=== PATIENT | female | born 1980 | race Caucasian/White ===

== ENCOUNTER 2020-12-23 13:10 | Emergency (ER) | payer MEDICAID, SELFPAY ==
[2020-12-23 13:21] VITALS: BP 172/90; PULSE 114; RESP 16; TEMP 36.5; O2SAT 100
--- NOTE | 2020-12-23 13:28 | ED.URI ---
HPI - URI/Sore Throat General Chief Complaint: Upper Respiratory Infection Stated Complaint: congestion and ear pain Source: patient and RN notes reviewed Mode of arrival: ambulatory History of Present Illness HPI Narrative: This is a 40-year-old female that presented to urgent care with complaints of sinus tenderness, chest and nasal congestion, with green mucus, cough and shortness of breath, shortness of breath, and right ear audio disturbance for the last 8 days, patient notes that she has Mucinex at home for her symptoms. The patient denies SOB, CP, palpitation, extremity numbness, lightheadedness, dizziness, constipation, diarrhea, chills, or fever. Patient has had a history of sinusitis MD elicited complaint: cough, rhinorrhea, nasal congestion and sinus pain Related Data Home Medications Medication Instructions Recorded Confirmed cyclobenzaprine 10 mg PO TID PRN 12/23/20 12/23/20 morphine 15 mg PO TID 12/23/20 12/23/20 potassium chloride 20 meq PO DAILY 12/23/20 12/23/20 Allergies Allergy/AdvReac Type Severity Reaction Status Date / Time methocarbamol [From Robaxin] Allergy Severe Anaphylactic Verified 12/23/20 13:47 Shock adhesive Allergy Unknown RASH Verified 12/23/20 13:47 latex Allergy Unknown RASH ON Verified 12/23/20 13:47 HANDS Review of Systems Review of Systems: A 14 organ system Review of Systems was performed and pertinent positives included in the HPI, otherwise remaining ROS is negative. [facility] Family History Family History Mother Family history of malignant neoplasm of cervix Family history of malignant neoplasm of breast in first degree relative Grandparent Family history of malignant neoplasm of breast Other Diabetes mellitus Family history of coronary artery disease Hypertension Social History Social History Alcohol intake: never Exam Narrative: GENERAL: This is a well-nourished, well-developed patient, in no apparent distress. HEAD: normocephalic, atraumatic. Frontal and maxillary tenderness. EYES: PERRL. Sclera clear/white. Vision is grossly intact. EARS: External ears normal, auditory canals clear with erythema without drainage, TMs normal without perforation. Hearing grossly intact. NOSE: External nose normal with no obvious nasal discharge, nares without redness, no rhinorrhea. THROAT: Mucous membranes moist, posterior pharynx clear. NECK: Neck supple, non-tender without lymphadenopathy, masses or thyromegaly. CARDIOVASCULAR: Regular rate and rhythm without murmurs, gallops, or rubs. RESPIRATORY: Clear to auscultation. Breath sounds equal bilaterally. No wheezes, rales, or rhonchi. GASTROINTESTINAL: Abdomen soft, non-tender, nondistended. Bowel sounds are active. No hepato-splenomegaly, or palpable masses. No guarding. SKIN: warm, intact with no suspicious lesions or rash, good texture and turgor. NEURO: awake, alert, and oriented to person, place and time. There were no obvious focal neurologic abnormalities. Steady gait EXTREMITIES: Normal range of motion. No edema. No calf tenderness. Negative Homans sign bilaterally. BACK: Nontender without deformity or crepitance. No flank tenderness. Course Course Emergency Course: Patient will be treated for otitis externa with Cipro drops and Augmentin for sinusitis. Vital Signs Vital signs: Vital Signs Temperature 97.7 F 12/23/20 13:21 Pulse Rate 114 H 12/23/20 13:21 Respiratory Rate 16 12/23/20 13:21 Blood Pressure 172/90 H 12/23/20 13:21 Pulse Oximetry 100 12/23/20 13:21 Temperature 97.7 F 12/23/20 13:21 Pulse Rate 114 H 12/23/20 13:21 Respiratory Rate 16 12/23/20 13:21 Blood Pressure 172/90 H 12/23/20 13:21 Pulse Oximetry 100 12/23/20 13:21 MDM - URI/Sore Throat Differential Diagnosis Differential diagnosis: Likely upper respiratory infection, otitis media and sinus
== END 2020-12-23 14:21 | disposition home or self-care (01) ==
PROVIDERS: Emergency Provider Nurse Practitioner
DX: J01.11 Acute recurrent frontal sinusitis (principal); H60.501 Unspecified acute noninfective otitis externa, right ear; Z20.822 Contact with and (suspected) exposure to COVID-19
CPT/HCPCS: 87426; 99203; C9803; G0463

== ENCOUNTER 2022-01-19 14:55 | Emergency (ER) | payer MEDICAID, SELFPAY ==
[2022-01-19 15:01] VITALS: BP 118/77; PULSE 93; RESP 14; TEMP 36.5; O2SAT 100
--- NOTE | 2022-01-19 15:24 | ED.URI ---
HPI - URI/Sore Throat General Chief Complaint: Upper Respiratory Infection Stated Complaint: chest tightness nausea Time Seen by Provider: 01/19/22 15:24 Source: patient and RN notes reviewed Mode of arrival: ambulatory Limitations: no limitations History of Present Illness HPI Narrative: 41-year-old female presents with concern for 10 day history of chest heaviness, cough, earache, muscle ears. Reports she has been taking [id number] medication without relief. Reports members of her household have similar symptoms MD elicited complaint: cough and other (Ear pain) Related Data Home Medications Medication Instructions Recorded Confirmed cyclobenzaprine 10 mg tablet 10 mg PO TID PRN Muscle Spasm 12/23/20 01/19/22 duloxetine 60 mg capsule,delayed 60 mg PO BID 01/19/22 01/19/22 release mecobalamin (vitamin B12) 10,000 5,000 mcg IM WEEKLY 01/19/22 01/19/22 mcg solution for injection oxycodone 10 mg tablet 10 mg PO TID 01/19/22 01/19/22 Allergies Allergy/AdvReac Type Severity Reaction Status Date / Time methocarbamol [From Robaxin] Allergy Severe Anaphylactic Verified 01/19/22 15:12 Shock adhesive Allergy Unknown RASH Verified 01/19/22 15:12 latex Allergy Unknown RASH ON Verified 01/19/22 15:12 HANDS gabapentin Allergy Anxiety Verified 01/19/22 15:12 Review of Systems Review of Systems: CONSTITUTIONAL: Reports malaise EYES: Denies visual changes, redness, or discharge. ENT: Reports rhinorrhea, congestion, sinus pain, otalgia CARDIOVASCULAR: Denies chest pain, palpitations, or edema. RESPIRATORY: Reports persistent dry cough. Denies dyspnea. GASTROINTESTINAL: Denies abdominal pain, nausea, vomiting, diarrhea SKIN: Denies rash or itching. MUSCULOSKELETAL: Denies myalgia. NEUROLOGIC: Denies headache. All systems reviewed & are unremarkable except as noted in HPI and below PMFSH Family History Family History Mother Family history of malignant neoplasm of cervix Family history of malignant neoplasm of breast in first degree relative Grandparent Family history of malignant neoplasm of breast Other Diabetes mellitus Family history of coronary artery disease Hypertension Social History Social History Alcohol intake: never Comments At time of signature, agree with nursing past medical, surgical, social and family history. There is no relevant family history pertinent to the presenting complaint Exam Narrative: GENERAL: Well-appearing, well-nourished, and in no acute distress. HEAD: Normocephalic EYES: PERRLA, conjunctivae clear ENT: Nares clear. Mucous membranes moist. Right TM erythematous and bulging, left TM erythematous, not intact, patient reports chronic ruptured TM; no tragal tenderness. Oropharynx not erythematous without lesions. Tonsils not enlarged and without exudate, no drooling, no hoarseness, no trismus, uvula midline. NECK: Supple. No lymphadenopathy CHEST: Clear to auscultation, breath sounds equal. No wheezing, rhonchi, rales, or stridor. No respiratory distress, speaks in full sentences. HEART: Regular rate and rhythm. No murmur heard. SKIN: Warm, dry, no rash. NEURO: Alert and oriented x3. PSYCH: Normal mood and affect Course Course Emergency Course: Patient is aware of diagnosis, understands and agrees to treatment plan. Anticipatory guidance given. Patient agrees to follow-up as directed and is aware of reasons to seek care at the emergency department. Portions of this record may have been created with voice recognition software Level of Care: Express Care Visit Vital Signs Vital signs: Vital Signs Temperature 97.7 F 01/19/22 15:01 Pulse Rate 93 01/19/22 15:01 Respiratory Rate 14 01/19/22 15:01 Blood Pressure 118/77 01/19/22 15:01 Pulse Oximetry 100 01/19/22 15:01 Oxygen Delivery Room Air 01/19/22 15:01 Temperature 97
== END 2022-01-19 15:39 | disposition home or self-care (01) ==
PROVIDERS: Emergency Provider Nurse Practitioner
DX: H66.90 Otitis media, unspecified, unspecified ear (principal); R05.9 Cough, unspecified
CPT/HCPCS: 99213; G0463

== ENCOUNTER 2022-11-15 11:53 | Inpatient (IN) | payer OTHER, SELFPAY ==
[2022-11-15] VITALS (8 sets, daily range): BP systolic 129–164; BP diastolic 83–96; PULSE 96–121; RESP 13–25; TEMP 36.3–36.7; O2SAT 97–98; BMI 42.0; BMI 43.3
--- NOTE | ~2022-11-15 | XR_ITS ---
EXAMINATION: XR chest 2V DATE: 11/15/2022 16:02 INDICATION: Sepsis. Neck pain. Fever. TECHNIQUE: Frontal and lateral views of the chest were obtained. COMPARISON: None. FINDINGS: There is no pneumonia, pleural effusion, or pneumothorax. The heart size is normal. IMPRESSION: 1. No acute cardiopulmonary disease. Reviewed, dictated and finalized at location E.
--- NOTE | ~2022-11-15 | MR_ITS ---
EXAMINATION: MR brain/brain stem wo/w con DATE: 11/17/2022 07:44 INDICATION: history of MS TECHNIQUE: Magnetic resonance imaging (MRI) of the brain and brainstem was performed with and without 20 mL MultiHance intravenous contrast. Sequences included sagittal and axial T1-weighted SE, axial d iffusion-weighted FS EPI ASSET, axial T2*-weighted GRE, axial T2-weighted FLAIR Propeller, and axial T2-weighted Propeller. Postcontrast axial and coronal T1-weighted SE was obtained. Apparent diffusion coefficient (ADC) maps were created. COMPARISON: None. FINDINGS: No abnormal restricted diffusion to suggest acute ischemic infarct. No MRI evidence of hemorrhage or extra-axial collection. No suspicious foci of susceptibility to suggest prior intraparenchymal hemorr yarelis. Normal white matter signal. No evidence of advanced or lobar predominant parenchymal volume los s. 4.0 x 2.1 cm left hemispheric meningioma. No other enhancing lesions detected. The basilar cistern s are patent. Flow voids are preserved. Paranasal sinuses are within normal limits. Possible bilatera l lens replacements. Globes and orbital contents are otherwise within normal limits. IMPRESSION: Normal white matter signal, no MR evidence of demyelinating disease. Left hemispheric meningioma. Reviewed, dictated and finalized at location K.
--- NOTE | ~2022-11-15 | CT_ITS ---
CT scan of the Neck Technique: 2.5 mm axial scans were obtained through the neck after intravenous administration of 75 c c Omnipaque 350. Coronal and sagittal reconstructions of the neck were obtained. Dose reduction techn ique was used on this scan by utilizing automated exposure control and iterative reconstruction techn ique. The dose-length product (DLP) was 516.37 mGy-cm. Clinical History: Neck pain Findings: There is no evidence of any significant cervical lymphadenopathy. Several small, nonenlarged jugulo- digastric and posterior cervical lymph nodes are noted bilaterally. Parapharyngeal spaces appear norm al bilaterally. The parotid and submandibular glands appear normal. The pharyngeal mucosal spaces appear normal. No soft tissue masses are seen in the neck. The thyroid gland appears normal. Images of the lung apices reveal no abnormalities. Impression: No significant abnormalities noted. Reviewed, dictated and finalized at [facility]. Impression: No significant abnormalities noted.
--- NOTE | ~2022-11-15 | XR_ITS ---
EXAMINATION: XR chest PICC line DATE: 11/21/2022 12:10 INDICATION: Central line placement. TECHNIQUE: A single frontal view of the chest was obtained. COMPARISON: Chest 2 views 11/15/2022 FINDINGS: There is no pneumonia, pleural effusion, or pneumothorax. The heart size is normal. A right upper extremity peripherally inserted central venous catheter (PICC) is seen with tip in the superio r vena cava. IMPRESSION: 1. PICC tip in the superior vena cava. Reviewed, dictated and finalized at location A.
--- NOTE | ~2022-11-15 | MR_ITS ---
EXAMINATION: MR cervical spine wo/w con DATE: 11/17/2022 07:44 INDICATION: History of MS TECHNIQUE: Magnetic resonance imaging (MRI) of the cervical spine was performed without and with 20 m L MultiHance intravenous contrast. Sequences included sagittal T2-weighted FSE, sagittal T2-weighted FS STIR, sagittal T1-weighted FSE contrast T1 FSE FS, axial MERGE, and axial T1 and postcontrast T1 F SE FS. COMPARISON: None FINDINGS: Craniocervical association and atlantoaxial joint are intact. Mild degenerative change at t he atlantodental interval. Normal alignment. Vertebral body heights are maintained. Multilevel mild d isc height loss and dehydration. The cord signal is normal. Normal cervicomedulary junction. The foll owing disc levels are specifically discussed: C2-C3: The disc does not extend beyond the endplate margin. There is no uncovertebral joint osteoarth ritis. There is no facet joint osteoarthritis. There is no neural foraminal stenosis. There is no diane tral canal stenosis. C3-C4: The disc does not extend beyond the endplate margin. Mild right uncovertebral joint hypertroph y. There is no uncovertebral joint osteoarthritis. There is no facet joint osteoarthritis. There is n o neural foraminal stenosis. There is no central canal stenosis. C4-C5: The disc does not extend beyond the endplate margin. Mild left uncovertebral joint hypertrophy . There is no uncovertebral joint osteoarthritis. There is no facet joint osteoarthritis. There is no neural foraminal stenosis. There is no central canal stenosis. C5-C6: Mild disc bulge and uncovertebral joint hypertrophy. There is no uncovertebral joint osteoarth ritis. There is no facet joint osteoarthritis. There is no neural foraminal stenosis. There is no diane tral canal stenosis. C6-C7: The disc does not extend beyond the endplate margin. There is no uncovertebral joint osteoarth ritis. There is no facet joint osteoarthritis. There is no neural foraminal stenosis. There is no diane tral canal stenosis. C7-T1: The disc does not extend beyond the endplate margin. There is no uncovertebral joint osteoarth ritis. There is no facet joint osteoarthritis. There is no neural foraminal stenosis. There is no diane tral canal stenosis. IMPRESSION: No MR findings of demyelinating disease. Multilevel mild degenerative disc disease. Reviewed, dictated and finalized at location K.
--- NOTE | 2022-11-15 15:51 | ED.FEVER ---
HPI - Fever General Chief Complaint: Fever Stated Complaint: fever, neck pain, rash Time Seen by Provider: 11/15/22 15:51 History of Present Illness HPI Narrative: Patient is a 42-year-old female here with of fever and neck pain. She states that about 3 days ago she began feeling septic . She states that she felt generally ill and has had trouble doing her daily tasks. She states that she began having some bilateral neck pain and stiffness. She notes that at rest she does not have much pain but any time she tries to bend her head forward she has significant pain in her neck. Her temperature at home was 102 F. today she noted some blotchy skin rash over the right neck. She denies any nausea, vomiting. She does note chronic diarrhea which is unchanged from her baseline. 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 no sick contacts. No sore throat, cough, congestion. Related Data Home Medications Medication Instructions Recorded Confirmed cyclobenzaprine 10 mg tablet 10 mg PO TID PRN Muscle Spasm 12/23/20 01/19/22 duloxetine 60 mg capsule,delayed 60 mg PO BID 01/19/22 01/19/22 release mecobalamin (vitamin B12) 10,000 5,000 mcg IM WEEKLY 01/19/22 01/19/22 mcg solution for injection oxycodone 10 mg tablet 10 mg PO TID 01/19/22 01/19/22 Allergies Allergy/AdvReac Type Severity Reaction Status Date / Time methocarbamol [From Robaxin] Allergy Severe Anaphylactic Verified 11/15/22 11:54 Shock adhesive Allergy Unknown RASH Verified 11/15/22 11:54 latex Allergy Unknown RASH ON Verified 11/15/22 11:54 HANDS gabapentin Allergy Anxiety Verified 11/15/22 11:54 Review of Systems Review of Systems: All systems reviewed & are unremarkable except as noted in HPI and below PMFSH Family History Family History Mother Family history of malignant neoplasm of cervix Family history of malignant neoplasm of breast in first degree relative Grandparent Family history of malignant neoplasm of breast Other Diabetes mellitus Family history of coronary artery disease Hypertension Social History Social History Alcohol intake: never Exam Narrative: GENERAL: Well-appearing, well-nourished, and in no acute distress. HEAD: Normocephalic, atraumatic. EYES: PERRLA and EOMI. ENT: Nares clear. Mucous membranes moist. No TM present on the left, no drainage. NECK: Supple. CHEST: Clear to auscultation. No respiratory distress. HEART: Regular rate and rhythm. Normal peripheral pulses. ABDOMEN: Soft, nontender, nondistended. S significant scarring over abdomen consistent with multiple prior bowel resections surgeries. EXTREMITIES: Normal range of motion. No edema. SKIN: Warm, dry, no rash. NEURO: No focal deficits. Alert and oriented x3. PSYCH: Normal mood and affect. Course POSTDOCTORAL FELLOW/PA Physician Supervision Chart review performed. Patient here with neck pain, stiffness and fever. Triage vitals show tachycardia, afebrile. Patient has already been here for 4 hours prior to my review of chart. Sepsis order set placed at this time including 30 cc/kg IVF. Patient seen and evaluated, she does appear to have some neck stiffness and currently has a fever of unknown origin. Will do septic workup and if no source identified will likely have to do a lumbar puncture. Patient does understand risks of a lumbar puncture. She does note that in the past she has had a lumbar puncture resulting in bilateral lower extremity paralysis for several days which fully returned. She does note that this is a possible risk however she would be okay with continuing forward with this should be indicated. Lab work reviewed, white blood cell count of 12.1, CBC otherwise unremarkable. Normal PT, PTT. Electrolytes within normal limits, normal renal function. UA negative. Influenza, RSV, COVID negative. C
[2022-11-15 16:36] LABS: Basophils Absolute Auto 0.1 K/mm3 (0.0-0.1); Basophils Percent Auto 0.7 % (0.2-1.2); Eosinophils Absolute Auto 0.2 K/mm3 (0-0.3); Eosinophils Percent Auto 1.7 % (0-4.4); Hematocrit 40.1 % (37.0-47.0); Hemoglobin 13.2 g/dL (12.0-15.0); Immature Granulocyte Absolute 0.05 K/mm3 (0.00-0.031); Immature Granulocyte Percent A 0.4 % (0-0.5); Lymphocytes Absolute Auto 2.97 K/mm3 (0.9-3.2); Lymphocytes Percent Auto 24.6 % (18.3-44.2); Mean Corpuscular HGB Conc 32.9 g/dl (32-36); Mean Corpuscular Hemoglobin 29.3 pg (26-34); Mean Corpuscular Volume 88.9 fl (80-100); Mean Platelet Volume 10.6 fl (7.4-10.4); Monocytes Absolute Auto 0.8 K/mm3 (0.1-0.6); Neutrophils Absolute Auto 7.9 K/mm3 (1.3-6.7); Neutrophils Percent Auto 65.6 % (45.5-73.1); Platelet Count Result 317 k/mm3 (150-375); Red Blood Count 4.51 M/mm3 (4.2-5.4); Red Cell Distribution Width 13.3 % (11.5-14.5); White Blood Count 12.1 K/mm3 (4.5-10.0)
[2022-11-15 16:39] LABS: Appearance Urine Clear (Clear); Bacteria Urine None Seen /hpf; Bilirubin Urine Negative (Negative); Blood Urine Trace (Negative); Color Urine Yellow (Yellow); Glucose Urine UA Negative (Negative); Ketones Urine Negative (Negative); Leukocyte Esterase Ur Negative LEU/UL (Negative); Nitrate Urine Negative (Negative); Non Pathogenic Casts 0-2; Protein Urine Negative (Negative); RBC Urine 0-2 /hpf (0-2); Specific Grav Ur 1.014 (1.001-1.035); Squamous Epithelial Cell Urine None seen /hpf (Few); Urobilinogen Urine 0.2 mg/dL (<2.0); WBC Urine 0-5 /hpf
[2022-11-15 16:45] LABS: Prothrombin Time 13.9 Seconds (11.1-14.7)
[2022-11-15 16:46] LABS: Alanine Aminotransferase 31 U/L (6-35); Albumin Level 4.5 g/dL (3.5-5.1); Alkaline Phosphatase 102 U/L (38-126); Anion Gap 11 mmol/L (8-16); Aspartate Amino Transferase 29 U/L (14-36); Bilirubin,Total 0.6 mg/dL (0.2-1.3); Blood Urea Nitrogen 11 mg/dL (7-17); CRP 1.2 mg/dL (<1.0); Calcium 9.5 mg/dL (8.4-10.2); Carbon Dioxide 22 mmol/L (22-30); Chloride 107 mmol/L (98-107); Estimated CRCL calculation 103 ml/min; Estimated Glomerular Filt Rate > 60; Glucose 101 mg/dL (65-110); Partial Thromboplastin Time 28.5 SECONDS (22.3-36.8); Potassium 3.7 mmol/L (3.4-5.0); Sodium 140 mmol/L (137-145)
[2022-11-15 16:50] LABS: Add Urine Microscopic? YES
[2022-11-15 17:06] LABS: Lactic Acid Reflex 1.3 mmol/L (0.7-2.0)
[2022-11-15 17:09] LABS: Influenza A QL RT-PCR Negative (Negative); Influenza B QL RT-PCR Negative (Negative); RSV RNA, RT-PCR Negative (Negative); SARS-CoV-2 RNA PCR Negative (Negative)
[2022-11-15] MEDS: ONDANSETRON INJ 4 MG/2 ML VIAL IV PUSH (18:06)
[2022-11-15] MEDS: MORPHINE SULFATE (*CRX) 4 MG/ML INJ IV PUSH (18:07)
[2022-11-15] MEDS: LIDOCAINE HCL 1% LOCAL INJ 10 ML VIAL INFILTRATE (18:43)
[2022-11-15] MEDS: ACETAMINOPHEN 325 MG TABLET 650 MG PO (19:26)
[2022-11-15 19:57] LABS: Strep Group A RT-PCR NOT DETECTED (Negative)
[2022-11-15] MEDS: cefTRIAXone 2 GM/NS 100 ML 2 GM/100 ML BAG IVPB (20:03)
[2022-11-15 20:51] LABS: Monoscreen Negative (Negative); Negative Monotest Control Negative (Negative); Positive Monotest Control Positive (Positive)
--- NOTE | 2022-11-15 22:20 | ADMGEN ---
This patient, Fang Bell, was admitted to 2 Medical Room 259-01. Patient/family oriented to hospital policies and general routines including ID bracelet, bed and alarms, visiting hours, pain management, procedures, bathroom and other care routines, personal items, smoking policy, room service/diet, and visiting hours. Information on how to activate the Rapid Response Team has been discussed. Patient/Family are encouraged to report perceived risks to care and to ask questions if they do not understand what they are told or what they should do.
[2022-11-15] MEDS: VANCOMYCIN 1,250 MG/NS 250 ML 1,250 MG/250 ML BAG 166.67 MG IVPB (22:51)
[2022-11-16] MEDS: VANCOMYCIN 1,250 MG/NS 250 ML 1,250 MG/250 ML BAG 166.67 MG IVPB (00:30)
[2022-11-16] MEDS: oxyCODONE HCL (*CRX) 5 MG TAB IR 10 MG PO ×4 (02:15→20:18)
[2022-11-16] MEDS: CYCLOBENZAPRINE HCL 10 MG TABLET PO ×2 (02:19→20:22)
[2022-11-16 06:16] LABS: Estimated CRCL calculation 106 ml/min; Estimated Glomerular Filt Rate > 60
[2022-11-16 07:38] VITALS: BP 99/53; PULSE 77; RESP 16; TEMP 36.7; O2SAT 98
[2022-11-16] MEDS: DULoxetine HCL 60 MG CAPSULE.DR PO ×2 (08:22→20:18)
--- NOTE | 2022-11-16 12:49 | PM.IMHP ---
H&P: HPI History of Present Illness Date/Time: 11/16/22 12:49 Chief Complaint: Fever Narrative: 42-year-old female here with fever and. Started since past few days. Generally feeling ill. Neck trauma. Planes of bilateral neck pain and stiffness. Had a temperature at home which was 102 degree for night. She also developed some blotchy skin rash on right. Initially has some sore throat but does not. She denies nausea vomiting abdominal pain. No cough shortness of breath. She has chronic abdominal pain due to dumping syndrome after bowel resection. She was tachycardic on arrival to the ED afebrile. She received IV fluid due to concern for meningitis lumbar puncture was attempted however was unsuccessful. She had lumbar puncture in the past that led to bilateral lower extremities dialysis for several days. She does have history of multiple sclerosis as she is getting treated by a neurologist with steroid intermittently she is not on any other chronic MS medication. UA is negative influenza RSV COVID negative chest x-ray negative. Mild leukocytosis at 12.1 electrolytes unremarkable. Started on broad-spectrum antibiotics. Neurology consulted. Review of Systems Review of Systems: - CONSTITUTIONAL: Denies weight loss, fever and chills. - HEENT: Denies changes in vision and hearing - RESPIRATORY: Denies SOB and cough. - CV: Denies palpitations and CP. - GI: Denies abdominal pain, nausea, vomiting and diarrhea. - : Denies dysuria and urinary frequency. - MSK: Denies myalgia and joint pain. - SKIN: Denies rash and pruritus. - NEUROLOGICAL: Denies headache and syncope. - PSYCHIATRIC: Denies recent changes in mood. Denies anxiety and depression. [facility] Family History Family History Mother Family history of malignant neoplasm of cervix Family history of malignant neoplasm of breast in first degree relative Grandparent Family history of malignant neoplasm of breast Other Diabetes mellitus Family history of coronary artery disease Hypertension Social History Social History Smoking packs per day: 0.75 Smoking cigarettes per day: 15.0 Years smoked: 30 Smoking pack-years: 22.50 Smoking status: Current every day smoker Tobacco type: cigarettes Alcohol intake: never Substance use: never Substance use type: does not use Lack of Transportation: No Lack of Food: Never True Current Housing: I Have Housing Concerned About Future Housing: No Difficulty Paying Gas/Electric Bills: No Difficulty Paying for Meds: No Currently Unemployed: No Education: High School Diploma/GED Difficulty w/ Childcare or Family Care: No Spiritual care concerns: No Meds Home Medications and Allergies Home Medications Medication Instructions Recorded Confirmed Type cyclobenzaprine 10 mg tablet 10 mg PO TID PRN Muscle Spasm 12/23/20 11/15/22 History duloxetine 60 mg capsule,delayed 60 mg PO BID 01/19/22 11/15/22 History release mecobalamin (vitamin B12) 10,000 5,000 mcg IM WEEKLY 01/19/22 11/15/22 History mcg solution for injection oxycodone 10 mg tablet 10 mg PO QID 01/19/22 11/15/22 History Allergies Allergy/AdvReac Type Severity Reaction Status Date / Time methocarbamol [From Robaxin] Allergy Severe Anaphylactic Verified 11/15/22 11:54 Shock adhesive Allergy Unknown RASH Verified 11/15/22 11:54 latex Allergy Unknown RASH ON Verified 11/15/22 11:54 HANDS gabapentin Allergy Anxiety Verified 11/15/22 11:54 Vital Signs Vital Signs - 24 hr 11/15/22 15:22 11/15/22 16:17 11/15/22 18:06 Temperature 97.5 F L 98.0 F Pulse Rate 121 H 103 H 103 H Respiratory Rate 18 25 H 19 Blood Pressure 152/89 H 129/94 H 147/83 H Pulse Oximetry 98 97 98 Oxygen Delivery 11/15/22 16:24 11/15/22 16:30 11/15/22 17:08 Temperature Pulse Rate 99 102
--- NOTE | 2022-11-16 13:41 | WPDNEURCNPN ---
Assessment and Plan Assessment and plan (1) Multiple sclerosis: Code(s): G35 - Multiple sclerosis Status: Acute (2) Fever of unknown origin: Code(s): R50.9 - Fever, unspecified Status: Acute (3) Neck stiffness: Code(s): M43.6 - Torticollis Status: Acute Plan Ms. Atwood is a 42 year old female with a history of MS presenting with headache, neck stiffness, in the setting of fever. She has been started on empiric antibiotics, acyclovir for presumed meningitis/encephalitis. Patient reports that she is not supposed to be getting LPs, which she says she was told by other providers but we obviously do not have any records of this. I did discuss with her that if we are unable to do the LP, then she will need to be treated with these antibiotics/acyclovir for full course of at least 2 weeks. She understands that this will likely be the case. I do think it is worth getting an MRI brain and MRI cervical spine with and without contrast to evaluate MS disease burden but also if there is something structural that could be causing her neck pain (Lhermitte's sign?) - MRI brain and cervical spine with and without contrast - Continue antibiotics and acyclovir empirically - Will need to figure out if we can do an LP or not, would try to get records from her prior providers Consult date: 11/16/22 Reason for consult: MS, mengitis/encephalitis HPI: Fang Bell is a 42 year old female with a history of multiple sclerosis presenting for fever and neck pain. Patient presented to [facility] ED after several day history of neck pain, malaise, neck stiffness. She also reported a new rash on the right side of her neck and initially also had a sore throat. In the ED she was tachycardic but had blood pressure in the 140-150s. Given the neck pain/stiffness and fever, LP was attempted for meningitis/encephalitis, which was unfortunately unsuccessful. WBC and CRP mildly elevated. UA was negative. She was empirically started on vancomycin, Rocephin, and acyclovir. She has a history of MS, but is not currently on any disease modifying therapy. 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 She was diagnosed with MS in 2011. She does not currently see a Neurologist, but did previously see on in [place] and [place] when she was living in those states. Patient reports the pain in her neck and her head is more of an ache. She is familiar with Lhermitte's sign which she has experienced before, but this is a different sensation for her. She denies any new changes in her vision, new weakness/paraesthesias, change in her speech/swallow. She has baseline fatigue which she feels has gotten worse as well. She has a history of migraines so it is hard for her to tell if her headaches are worse than before. There is report that she had a temperature of 102 at home. Patient reports that she has been told by several providers that she should not be having a lumbar puncture after she had nerve damage from one in the past. Review of Systems Constitutional: Constitutional: Reports fatigue Eyes: Eyes: Denies diplopia and Denies loss of vision ENT: Denies dizziness, Denies hearing loss and Denies tinnitus Cardiovascular: Cardiovascular: Denies chest pain, Denies syncope and Denies dyspnea Respiratory: Respiratory: Denies cough, Denies dyspnea and Denies wheezing Gastrointestinal: Gastrointestinal: Denies abdominal pain, Denies change in bowel habits and Denies vomiting Comments: stool incontinence, chronic for past year Genitourinary: Genitourinary: Reports urinary incontinence Comments: chronic for past two years Musculoskeletal: Musculoskeletal: Denies arthralgias, Denies joint swelling, Reports neck pain and Reports stiffness Integumentary/Breasts: Skin/Breast: Denies new lesions and Denies rash Comments: rash on the right side of the neck Neuro
[2022-11-16 14:46] VITALS: BP 138/66; PULSE 92; RESP 18; TEMP 36.5; O2SAT 97
[2022-11-16] MEDS: cefTRIAXone 2 GM/NS 100 ML 2 GM/100 ML BAG IVPB (20:18)
[2022-11-16 20:59] VITALS: BP 118/60; PULSE 87; RESP 16; TEMP 37; O2SAT 96
[2022-11-17] MEDS: oxyCODONE HCL (*CRX) 5 MG TAB IR 10 MG PO ×4 (04:22→23:50)
[2022-11-17 04:58] VITALS: BP 115/52; PULSE 83; RESP 20; TEMP 37.6; O2SAT 94
[2022-11-17] MEDS: cefTRIAXone 2 GM/NS 100 ML 2 GM/100 ML BAG IVPB ×2 (08:13→20:50)
[2022-11-17 08:20] LABS: Basophils Absolute Auto 0.1 K/mm3 (0.0-0.1); Basophils Percent Auto 0.7 % (0.2-1.2); Eosinophils Absolute Auto 0.2 K/mm3 (0-0.3); Eosinophils Percent Auto 2.4 % (0-4.4); Hematocrit 36.1 % (37.0-47.0); Hemoglobin 11.7 g/dL (12.0-15.0); Immature Granulocyte Absolute 0.02 K/mm3 (0.00-0.031); Immature Granulocyte Percent A 0.2 % (0-0.5); Lymphocytes Absolute Auto 2.14 K/mm3 (0.9-3.2); Lymphocytes Percent Auto 26.1 % (18.3-44.2); Mean Corpuscular HGB Conc 32.4 g/dl (32-36); Mean Corpuscular Hemoglobin 29.7 pg (26-34); Mean Corpuscular Volume 91.6 fl (80-100); Mean Platelet Volume 10.6 fl (7.4-10.4); Monocytes Absolute Auto 0.6 K/mm3 (0.1-0.6); Monocytes Percent Auto 7.8 % (2.6-8.5); Neutrophils Absolute Auto 5.1 K/mm3 (1.3-6.7); Neutrophils Percent Auto 62.8 % (45.5-73.1); Platelet Count Result 258 k/mm3 (150-375); Red Blood Count 3.94 M/mm3 (4.2-5.4); Red Cell Distribution Width 13.1 % (11.5-14.5); White Blood Count 8.2 K/mm3 (4.5-10.0)
[2022-11-17 08:29] LABS: Alanine Aminotransferase 92 U/L (6-35); Albumin Level 3.9 g/dL (3.5-5.1); Alkaline Phosphatase 94 U/L (38-126); Anion Gap 4 mmol/L (8-16); Aspartate Amino Transferase 66 U/L (14-36); Bilirubin,Total 0.5 mg/dL (0.2-1.3); Blood Urea Nitrogen 11 mg/dL (7-17); Calcium 8.6 mg/dL (8.4-10.2); Carbon Dioxide 28 mmol/L (22-30); Chloride 103 mmol/L (98-107); Estimated CRCL calculation 94 ml/min; Estimated Glomerular Filt Rate > 60; Glucose 102 mg/dL (65-110); Potassium 3.8 mmol/L (3.4-5.0); Sodium 135 mmol/L (137-145)
[2022-11-17 09:25] LABS: Vancomycin Trough 14.9 ug/mL (10.0-20.0)
[2022-11-17] MEDS: DULoxetine HCL 60 MG CAPSULE.DR PO ×2 (10:11→20:27)
--- NOTE | 2022-11-17 12:17 | PM.IMPN ---
Progress Note: A&P Assessment and Plan (1) Neck stiffness: Code(s): M43.6 - Torticollis Status: Acute (2) Fever: Code(s): R50.9 - Fever, unspecified Status: Acute Plan 42-year-old female here with fever and. Started since past few days. Generally feeling ill. Neck trauma. Planes of bilateral neck pain and stiffness. Had a temperature at home which was 102 degree for night. She also developed some blotchy skin rash on right. Initially has some sore throat but does not. She denies nausea vomiting abdominal pain. No cough shortness of breath. She has chronic abdominal pain due to dumping syndrome after bowel resection. She was tachycardic on arrival to the ED afebrile. She received IV fluid due to concern for meningitis lumbar puncture was attempted however was unsuccessful. She had lumbar puncture in the past that led to bilateral lower extremities dialysis for several days. She does have history of multiple sclerosis as she is getting treated by a neurologist with steroid intermittently she is not on any other chronic MS medication. UA is negative influenza RSV COVID negative chest x-ray negative. Mild leukocytosis at 12.1 electrolytes unremarkable. Started on broad-spectrum antibiotics. Neurology consulted. She has been started on vancomycin ceftriaxone acyclovir for possible meningitis. CT neck unremarkable. MRI brain and MRI neck ordered and done results pending. Blood culture came back positive 02/14 for Staphylococcus hominis could be a contaminant. Will continue on vancomycin as ordered. Subjective Date/time seen: 11/17/22 12:17 Interval history: Neck pain still persist. Remains on IV antibiotics. Blood culture positive. Came back at staph hominis. MRI done which is pending result Review of Systems Review of Systems: All systems reviewed & are unremarkable except as noted in HPI and below Exam Narrative: GENERAL: Well-appearing, well-nourished, and in no acute distress. HEAD: Normocephalic, atraumatic. EYES: PERRLA and EOMI. ENT: Nares clear.? Mucous membranes moist. NECK: Supple. Tender to palpation paraSpinal area CHEST: Clear to auscultation.? No respiratory distress. HEART: Regular rate and rhythm.? Normal peripheral pulses. ABDOMEN: Soft, nontender, nondistended. ? S significant scarring over abdomen consistent with multiple prior bowel resections surgeries. EXTREMITIES: Normal range of motion.? No edema. SKIN: Warm, dry, no rash. NEURO: No focal deficits.? Alert and oriented x3. PSYCH: Normal mood and affect. Objective Data Vital Signs Vital Signs: Vital Signs - 24 hr 11/16/22 14:46 11/16/22 19:29 11/16/22 20:59 Temperature 97.7 F 98.6 F Pulse Rate 92 87 Respiratory Rate 18 16 Blood Pressure 138/66 118/60 Pulse Oximetry 97 96 Oxygen Delivery Room Air 11/17/22 04:58 11/17/22 08:15 Temperature 99.6 F Pulse Rate 83 Respiratory Rate 20 Blood Pressure 115/52 L Pulse Oximetry 94 Oxygen Delivery Room Air Intake/Output Intake/Output: Intake & Output 11/14/22 11/15/22 11/16/22 11/17/22 23:59 23:59 23:59 23:59 Intake Total 2371.2 1883.6 800 Balance 2371.2 1883.6 800 Meds/Results Medications: Active Medications Generic Name Dose Route Start Last Admin Trade Name Freq PRN Reason Stop Dose Admin Cyclobenzaprine HCl 10 mg 11/16/22 01:07 11/16/22 20:22 Cyclobenzaprine Hcl 10 Mg Tablet PO 10 mg TID PRN Administration Muscle Spasm Duloxetine HCl 60 mg 11/16/22 09:00 11/17/22 10:11 Duloxetine Hcl 60 Mg Capsule.Dr PO 60 mg Q12HR NAVIN Administration Acyclovir Sodium 1,060 mg/ 271.2 mls @ 250 mls/hr 11/15/22 20:00 11/17/22 04:16 Dextrose IVPB 250 mls/hr Q8H NAVIN Administration Vancomycin HCl 1,500 mg in 500 mls @ 250 mls/hr 11/16/22 09:00 11/17/22 10:10 Vancomycin 1,500 Mg/D5w 500 Ml IVPB 250 mls/hr Q12H NAVIN Administration Ceftriaxone Sodium 2 gm in 100 mls @ 200 mls/hr 11/16/22 20
[2022-11-17 13:35] VITALS: BP 128/55; PULSE 85; RESP 18; TEMP 36.9; O2SAT 96
[2022-11-17 20:06] VITALS: BP 144/70; PULSE 84; RESP 16; TEMP 36.6; O2SAT 95
[2022-11-17] MEDS: CYCLOBENZAPRINE HCL 10 MG TABLET PO (20:27)
[2022-11-17] MEDS: diphenhydrAMINE HCl CAP 25 MG CAPSULE PO (20:45)
[2022-11-17 21:52] VITALS: O2SAT 94
[2022-11-18 05:44] LABS: Basophils Absolute Auto 0.1 K/mm3 (0.0-0.1); Basophils Percent Auto 0.6 % (0.2-1.2); Eosinophils Absolute Auto 0.2 K/mm3 (0-0.3); Eosinophils Percent Auto 2.5 % (0-4.4); Hematocrit 34.8 % (37.0-47.0); Hemoglobin 11.4 g/dL (12.0-15.0); Immature Granulocyte Absolute 0.02 K/mm3 (0.00-0.031); Immature Granulocyte Percent A 0.2 % (0-0.5); Lymphocytes Absolute Auto 2.43 K/mm3 (0.9-3.2); Lymphocytes Percent Auto 28.4 % (18.3-44.2); Mean Corpuscular HGB Conc 32.8 g/dl (32-36); Mean Corpuscular Hemoglobin 29.5 pg (26-34); Mean Corpuscular Volume 89.9 fl (80-100); Mean Platelet Volume 10.4 fl (7.4-10.4); Monocytes Absolute Auto 0.8 K/mm3 (0.1-0.6); Monocytes Percent Auto 8.8 % (2.6-8.5); Neutrophils Absolute Auto 5.1 K/mm3 (1.3-6.7); Neutrophils Percent Auto 59.5 % (45.5-73.1); Platelet Count Result 249 k/mm3 (150-375); Red Blood Count 3.87 M/mm3 (4.2-5.4); Red Cell Distribution Width 12.7 % (11.5-14.5); White Blood Count 8.6 K/mm3 (4.5-10.0)
[2022-11-18 05:57] LABS: Alanine Aminotransferase 94 U/L (6-35); Albumin Level 3.7 g/dL (3.5-5.1); Alkaline Phosphatase 101 U/L (38-126); Anion Gap 5 mmol/L (8-16); Aspartate Amino Transferase 56 U/L (14-36); Bilirubin,Total 0.4 mg/dL (0.2-1.3); Blood Urea Nitrogen 9 mg/dL (7-17); Calcium 8.7 mg/dL (8.4-10.2); Carbon Dioxide 29 mmol/L (22-30); Chloride 103 mmol/L (98-107); Estimated CRCL calculation 94 ml/min; Estimated Glomerular Filt Rate > 60; Glucose 99 mg/dL (65-110); Magnesium 2.2 mg/dL (1.6-2.3); Potassium 3.7 mmol/L (3.4-5.0); Sodium 137 mmol/L (137-145)
[2022-11-18 06:00] VITALS: BP 119/55; PULSE 73; RESP 18; TEMP 36.2; O2SAT 96
[2022-11-18] MEDS: DULoxetine HCL 60 MG CAPSULE.DR PO ×2 (08:09→21:54)
[2022-11-18] MEDS: oxyCODONE HCL (*CRX) 5 MG TAB IR 10 MG PO ×3 (08:09→23:16)
[2022-11-18] MEDS: cefTRIAXone 2 GM/NS 100 ML 2 GM/100 ML BAG IVPB ×2 (08:09→21:22)
[2022-11-18 09:55] VITALS: O2SAT 96
--- NOTE | 2022-11-18 12:31 | PM.IMPN ---
Progress Note: A&P Assessment and Plan (1) Neck stiffness: Code(s): M43.6 - Torticollis Status: Acute (2) Fever: Code(s): R50.9 - Fever, unspecified Status: Acute Plan 42-year-old female here with fever and. Started since past few days. Generally feeling ill. Neck trauma. Planes of bilateral neck pain and stiffness. Had a temperature at home which was 102 degree for night. She also developed some blotchy skin rash on right. Initially has some sore throat but does not. She denies nausea vomiting abdominal pain. No cough shortness of breath. She has chronic abdominal pain due to dumping syndrome after bowel resection. She was tachycardic on arrival to the ED afebrile. She received IV fluid due to concern for meningitis lumbar puncture was attempted however was unsuccessful. She had lumbar puncture in the past that led to bilateral lower extremities dialysis for several days. She does have history of multiple sclerosis as she is getting treated by a neurologist with steroid intermittently she is not on any other chronic MS medication. UA is negative influenza RSV COVID negative chest x-ray negative. Mild leukocytosis at 12.1 electrolytes unremarkable. Started on broad-spectrum antibiotics. Neurology consulted. She has been started on vancomycin ceftriaxone acyclovir for possible meningitis. CT neck unremarkable. MRI brain with left cerebral meningioma 4 x 2.1 cm in size. Needs follow-up as an outpatient basis. MRI cervical spine with mild degenerative changes otherwise unremarkable. Blood culture came back positive 02/14 for Staphylococcus hominis could be a contaminant. Will continue on vancomycin as ordered. Subjective Date/time seen: 11/18/22 12:31 Interval history: Neck pain he is a bit better today. Blood culture came back as Staph hominis. No remains afebrile. No other complaints. Review of Systems Review of Systems: All systems reviewed & are unremarkable except as noted in HPI and below Exam Narrative: GENERAL: Well-appearing, well-nourished, and in no acute distress. HEAD: Normocephalic, atraumatic. EYES: PERRLA and EOMI. ENT: Nares clear.? Mucous membranes moist. NECK: Supple. Tender to palpation paraSpinal area CHEST: Clear to auscultation.? No respiratory distress. HEART: Regular rate and rhythm.? Normal peripheral pulses. ABDOMEN: Soft, nontender, nondistended. ? S significant scarring over abdomen consistent with multiple prior bowel resections surgeries. EXTREMITIES: Normal range of motion.? No edema. SKIN: Warm, dry, no rash. NEURO: No focal deficits.? Alert and oriented x3. PSYCH: Normal mood and affect. Objective Data Vital Signs Vital Signs: Vital Signs - 24 hr 11/17/22 13:35 11/17/22 19:12 11/17/22 20:06 Temperature 98.4 F 98 F Pulse Rate 85 84 Respiratory Rate 18 16 Blood Pressure 128/55 L 144/70 H Pulse Oximetry 96 95 Oxygen Delivery Room Air 11/17/22 21:52 11/18/22 06:00 11/18/22 08:00 Temperature 97.2 F L Pulse Rate 73 Respiratory Rate 18 Blood Pressure 119/55 L Pulse Oximetry 94 96 Oxygen Delivery Room Air Room Air 11/18/22 09:55 Temperature Pulse Rate Respiratory Rate Blood Pressure Pulse Oximetry 96 Oxygen Delivery Room Air Intake/Output Intake/Output: Intake & Output 11/15/22 11/16/22 11/17/22 11/18/22 23:59 23:59 23:59 23:59 Intake Total 2371.2 1883.6 3063.6 1811.2 Balance 2371.2 1883.6 3063.6 1811.2 Meds/Results Medications: Active Medications Generic Name Dose Route Start Last Admin Trade Name Freq PRN Reason Stop Dose Admin Cyclobenzaprine HCl 10 mg 11/16/22 01:07 11/17/22 20:27 Cyclobenzaprine Hcl 10 Mg Tablet PO 10 mg TID PRN Administration Muscle Spasm Duloxetine HCl 60 mg 11/16/22 09:00 11/18/22 08:09 Duloxetine Hcl 60 Mg Capsule.Dr PO 60 mg Q12HR NAVIN Administration Acyclovir Sodium 1,060 mg/ 271.2 mls @ 250 mls/hr 11/15/22 20:00 11/18/22 11:35
[2022-11-18 14:00] VITALS: BP 116/65; PULSE 80; RESP 18; TEMP 37; O2SAT 95
[2022-11-18 21:21] VITALS: BP 143/77; PULSE 97; RESP 20; TEMP 36.4; O2SAT 95
[2022-11-18] MEDS: CYCLOBENZAPRINE HCL 10 MG TABLET PO (23:16)
[2022-11-19 03:31] VITALS: BP 144/65; PULSE 81; RESP 20; TEMP 36.2; O2SAT 97
[2022-11-19 07:44] VITALS: RESP 20; O2SAT 97
[2022-11-19] MEDS: cefTRIAXone 2 GM/NS 100 ML 2 GM/100 ML BAG IVPB ×2 (07:44→20:06)
[2022-11-19] MEDS: oxyCODONE HCL (*CRX) 5 MG TAB IR 10 MG PO ×3 (07:57→19:59)
[2022-11-19] MEDS: DULoxetine HCL 60 MG CAPSULE.DR PO ×2 (07:59→20:00)
--- NOTE | 2022-11-19 11:57 | WPDNEUROPN ---
Progress Note: A&P Assessment and Plan (1) Multiple sclerosis: Code(s): G35 - Multiple sclerosis Status: Acute (2) Fever of unknown origin: Code(s): R50.9 - Fever, unspecified Status: Acute (3) Neck stiffness: Code(s): M43.6 - Torticollis Status: Acute Plan Ms. Atwood is a 42 year old female with a history of MS presenting with headache, neck stiffness, in the setting of fever. She has been started on empiric antibiotics, acyclovir for presumed meningitis/encephalitis. Patient reports that she is not supposed to be getting LPs, which she says she was told by other providers but we obviously do not have any records of this. MRI of brain and cervical spine were negative for any new lesions. There are no active MS concerns. Since we do not have CSF cultures, will have to treat full course of presumed meningitis/encephalitis. If we are able to get access for home infusion, I would be okay with her being discharged to complete the full 2 week course at home. - Continue antibiotics and acyclovir empirically for at least 2 weeks - Will need to figure out if we can do an LP or not, would try to get records from her prior providers Subjective Date/time seen: 11/19/22 11:57 Interval history: Fang Bell is a 42 year old female with a history of multiple sclerosis presenting for fever and neck pain. Patient presented to [facility] ED after several day history of neck pain, malaise, neck stiffness. She also reported a new rash on the right side of her neck and initially also had a sore throat. In the ED she was tachycardic but had blood pressure in the 140-150s. Given the neck pain/stiffness and fever, LP was attempted for meningitis/encephalitis, which was unfortunately unsuccessful. WBC and CRP mildly elevated. UA was negative. She was empirically started on vancomycin, Rocephin, and acyclovir. She has a history of MS, but is not currently on any disease modifying therapy. 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 She was diagnosed with MS in 2011. She does not currently see a Neurologist, but did previously see on in [place] and [place] when she was living in those states. Patient reports the pain in her neck and her head is more of an ache. She is familiar with Lhermitte's sign which she has experienced before, but this is a different sensation for her. She denies any new changes in her vision, new weakness/paraesthesias, change in her speech/swallow. She has baseline fatigue which she feels has gotten worse as well. She has a history of migraines so it is hard for her to tell if her headaches are worse than before. There is report that she had a temperature of 102 at home. Patient reports that she has been told by several providers that she should not be having a lumbar puncture after she had nerve damage from one in the past. MRI brain and cervical spine did not show any evidence of demyelinating disease. She was found to have left hemispheric meningioma. Patient feels that her neck pain is better since admission. She denies any other new complaints. LP was not attempted again. Review of Systems Constitutional: Constitutional: Reports fatigue Eyes: Eyes: Denies diplopia and Denies loss of vision ENT: Denies dizziness, Denies hearing loss and Denies tinnitus Cardiovascular: Cardiovascular: Denies chest pain, Denies syncope and Denies dyspnea Respiratory: Respiratory: Denies cough, Denies dyspnea and Denies wheezing Gastrointestinal: Gastrointestinal: Denies abdominal pain, Denies change in bowel habits and Denies vomiting Comments: stool incontinence, chronic for past year Genitourinary: Genitourinary: Reports urinary incontinence Comments: chronic for past two years Musculoskeletal: Musculoskeletal: Denies arthralgias, Denies joint swelling, Reports neck pain and Reports stiffness Integumentary/B
--- NOTE | 2022-11-19 14:12 | PM.IMPN ---
Progress Note: A&P Assessment and Plan (1) Neck stiffness: Code(s): M43.6 - Torticollis Status: Acute (2) Fever: Code(s): R50.9 - Fever, unspecified Status: Acute Plan 42-year-old female here with fever and. Started since past few days. Generally feeling ill. Neck trauma. Planes of bilateral neck pain and stiffness. Had a temperature at home which was 102 degree for night. She also developed some blotchy skin rash on right. Initially has some sore throat but does not. She denies nausea vomiting abdominal pain. No cough shortness of breath. She has chronic abdominal pain due to dumping syndrome after bowel resection. She was tachycardic on arrival to the ED afebrile. She received IV fluid due to concern for meningitis lumbar puncture was attempted however was unsuccessful. She had lumbar puncture in the past that led to bilateral lower extremities dialysis for several days. She does have history of multiple sclerosis as she is getting treated by a neurologist with steroid intermittently she is not on any other chronic MS medication. UA is negative influenza RSV COVID negative chest x-ray negative. Mild leukocytosis at 12.1 electrolytes unremarkable. Started on broad-spectrum antibiotics. Neurology consulted. She has been started on vancomycin ceftriaxone acyclovir for possible meningitis. CT neck unremarkable. MRI brain with left cerebral meningioma 4 x 2.1 cm in size. Needs follow-up as an outpatient basis. MRI cervical spine with mild degenerative changes otherwise unremarkable. Blood culture came back positive 02/14 for Staphylococcus hominis could be a contaminant. Will continue on vancomycin as ordered. Neurology plans continue IV antibiotics for full 2 weeks course, home infusion arrangement to be done which might be challenging as she does not have primary care. Will have care coordination consulted Subjective Date/time seen: 11/19/22 14:12 Interval history: Remains afebrile. Neck pain is feeling a little better since admission. No other complaints. Review of Systems Review of Systems: All systems reviewed & are unremarkable except as noted in HPI and below Exam Narrative: GENERAL: Well-appearing, well-nourished, and in no acute distress. HEAD: Normocephalic, atraumatic. EYES: PERRLA and EOMI. ENT: Nares clear.? Mucous membranes moist. NECK: Supple. Tender to palpation paraSpinal area CHEST: Clear to auscultation.? No respiratory distress. HEART: Regular rate and rhythm.? Normal peripheral pulses. ABDOMEN: Soft, nontender, nondistended. ? S significant scarring over abdomen consistent with multiple prior bowel resections surgeries. EXTREMITIES: Normal range of motion.? No edema. SKIN: Warm, dry, no rash. NEURO: No focal deficits.? Alert and oriented x3. PSYCH: Normal mood and affect. Objective Data Vital Signs Vital Signs: Vital Signs - 24 hr 11/18/22 21:21 11/19/22 03:31 11/19/22 07:44 Temperature 97.5 F L 97.2 F L Pulse Rate 97 81 Respiratory Rate 20 20 20 Blood Pressure 143/77 H 144/65 H Pulse Oximetry 95 97 97 Oxygen Delivery Room Air Intake/Output Intake/Output: Intake & Output 11/16/22 11/17/22 11/18/22 11/19/22 23:59 23:59 23:59 23:59 Intake Total 1883.6 3063.6 3239.4 2612.4 Balance 1883.6 3063.6 3239.4 2612.4 Meds/Results Medications: Active Medications Generic Name Dose Route Start Last Admin Trade Name Freq PRN Reason Stop Dose Admin Cyclobenzaprine HCl 10 mg 11/16/22 01:07 11/18/22 23:16 Cyclobenzaprine Hcl 10 Mg Tablet PO 10 mg TID PRN Administration Muscle Spasm Duloxetine HCl 60 mg 11/16/22 09:00 11/19/22 07:59 Duloxetine Hcl 60 Mg Capsule.Dr PO 60 mg Q12HR NAVIN Administration Vancomycin HCl 1,500 mg in 500 mls @ 250 mls/hr 11/16/22 09:00 11/19/22 12:20 Vancomycin 1,500 Mg/D5w 500 Ml IVPB Infused Q12H NAVIN Infusion Ceftriaxone Sodium 2 gm in 100 mls @ 200 mls/hr 11/16/22 20:00 11/19
[2022-11-19 14:29] VITALS: BP 129/69; PULSE 86; RESP 16; TEMP 36.7; O2SAT 96
[2022-11-19 21:09] VITALS: BP 132/77; PULSE 90; RESP 20; TEMP 36.4; O2SAT 94
[2022-11-20 03:25] VITALS: BP 101/47; PULSE 76; RESP 20; TEMP 36.2; O2SAT 94
[2022-11-20] MEDS: oxyCODONE HCL (*CRX) 5 MG TAB IR 10 MG PO ×4 (04:29→22:15)
[2022-11-20 08:14] LABS: Estimated CRCL calculation 94 ml/min; Estimated Glomerular Filt Rate > 60
[2022-11-20] MEDS: DULoxetine HCL 60 MG CAPSULE.DR PO ×2 (08:30→22:15)
[2022-11-20 08:45] LABS: Vancomycin Trough 17.9 ug/mL (10.0-20.0)
[2022-11-20] MEDS: cefTRIAXone 2 GM/NS 100 ML 2 GM/100 ML BAG IVPB ×2 (09:31→20:58)
--- NOTE | 2022-11-20 10:07 | PM.IMPN ---
Progress Note: A&P Assessment and Plan (1) Neck stiffness: Code(s): M43.6 - Torticollis Status: Acute (2) Fever: Code(s): R50.9 - Fever, unspecified Status: Acute Plan 42-year-old female here with fever and. Started since past few days. Generally feeling ill. Neck trauma. Planes of bilateral neck pain and stiffness. Had a temperature at home which was 102 degree for night. She also developed some blotchy skin rash on right. Initially has some sore throat but does not currently have 1. She denies nausea vomiting abdominal pain. No cough shortness of breath. She has chronic abdominal pain due to dumping syndrome after bowel resection. She was tachycardic on arrival to the ED afebrile. She received IV fluid due to concern for meningitis lumbar puncture was attempted however was unsuccessful. She had lumbar puncture in the past that led to bilateral lower extremities dialysis for several days. She does have history of multiple sclerosis as she is getting treated by a neurologist with steroid intermittently she is not on any other chronic MS medication. UA is negative influenza RSV COVID negative chest x-ray negative. Mild leukocytosis at 12.1 electrolytes unremarkable. Started on broad-spectrum antibiotics. Neurology consulted. She has been started on vancomycin ceftriaxone acyclovir for possible meningitis. CT neck unremarkable. MRI brain with left cerebral meningioma 4 x 2.1 cm in size. Needs follow-up as an outpatient basis. MRI cervical spine with mild degenerative changes otherwise unremarkable. Blood culture came back positive 02/14 for Staphylococcus hominis could be a contaminant. Will continue on vancomycin as ordered. Neurology plans continue IV antibiotics for full 2 weeks course, home infusion arrangement to be done which might be challenging as she does not have primary care. Will have care coordination consulted. Awaiting arrangements which is challenging at this point. Neurology state acyclovir can be switched to valacyclovir oral because of q.8 hour dosing. Will need vancomycin and ceftriaxone IV 12 hours for 2 total weeks Subjective Date/time seen: 11/20/22 10:07 Interval history: No fever chills neck pain is little better. Review of Systems Review of Systems: All systems reviewed & are unremarkable except as noted in HPI and below Exam Narrative: GENERAL: Well-appearing, well-nourished, and in no acute distress. HEAD: Normocephalic, atraumatic. EYES: PERRLA and EOMI. ENT: Nares clear.? Mucous membranes moist. NECK: Supple. Tender to palpation paraSpinal area CHEST: Clear to auscultation.? No respiratory distress. HEART: Regular rate and rhythm.? Normal peripheral pulses. ABDOMEN: Soft, nontender, nondistended. Has significant scarring over abdomen consistent with multiple prior bowel resections surgeries. EXTREMITIES: Normal range of motion.? No edema. SKIN: Warm, dry, no rash. NEURO: No focal deficits.? Alert and oriented x3. PSYCH: Normal mood and affect. Objective Data Vital Signs Vital Signs: Vital Signs - 24 hr 11/19/22 14:29 11/19/22 21:09 11/19/22 20:00 Temperature 98.1 F 97.5 F L Pulse Rate 86 90 Respiratory Rate 16 20 Blood Pressure 129/69 132/77 Pulse Oximetry 96 94 Oxygen Delivery Room Air 11/20/22 03:25 Temperature 97.2 F L Pulse Rate 76 Respiratory Rate 20 Blood Pressure 101/47 L Pulse Oximetry 94 Oxygen Delivery Intake/Output Intake/Output: Intake & Output 11/17/22 11/18/22 11/19/22 11/20/22 23:59 23:59 23:59 23:59 Intake Total 3063.6 3239.4 3767.6 1495.2 Output Total 6 Balance 3063.6 3239.4 3761.6 1495.2 Meds/Results Medications: Active Medications Generic Name Dose Route Start Last Admin Trade Name Freq PRN Reason Stop Dose Admin Cyclobenzaprine HCl 10 mg 11/16/22 01:07 11/18/22 23:16 Cyclobenzaprine Hcl 10 Mg Tablet PO 10 mg TID PRN Administration Muscle Spasm Duloxetine HCl 60 mg
[2022-11-20 14:40] VITALS: BP 109/49; PULSE 92; RESP 16; TEMP 36.6; O2SAT 95
[2022-11-20 20:35] VITALS: BP 123/78; PULSE 90; RESP 20; TEMP 36.9; O2SAT 95
[2022-11-20] MEDS: CYCLOBENZAPRINE HCL 10 MG TABLET PO (22:15)
[2022-11-21 04:05] VITALS: BP 110/58; PULSE 86; RESP 20; TEMP 36.7; O2SAT 98
[2022-11-21] MEDS: cefTRIAXone 2 GM/NS 100 ML 2 GM/100 ML BAG IVPB ×2 (07:44→20:05)
[2022-11-21] MEDS: oxyCODONE HCL (*CRX) 5 MG TAB IR 10 MG PO ×3 (07:45→19:51)
[2022-11-21 07:52] VITALS: RESP 20; O2SAT 96
[2022-11-21] MEDS: DULoxetine HCL 60 MG CAPSULE.DR PO ×2 (07:52→19:51)
[2022-11-21 08:43] VITALS: PULSE 104; O2SAT 96
[2022-11-21] MEDS: LIDOCAINE HCL 1% PF INJ 5 ML VIAL INFILTRATE (11:30)
[2022-11-21] MEDS: CENTRAL LINE FLUSH 10 ML IV PUSH ×2 (13:12→21:55)
[2022-11-21 14:00] VITALS: BP 127/64; PULSE 80; RESP 18; TEMP 36.3; O2SAT 99
--- NOTE | 2022-11-21 17:28 | PM.IMPN ---
Progress Note: A&P Assessment and Plan (1) Neck stiffness: Code(s): M43.6 - Torticollis Status: Acute (2) Fever: Code(s): R50.9 - Fever, unspecified Status: Acute Plan 42-year-old female here with fever and. Started since past few days. Generally feeling ill. Neck trauma. Planes of bilateral neck pain and stiffness. Had a temperature at home which was 102 degree for night. She also developed some blotchy skin rash on right. Initially has some sore throat but does not currently have 1. She denies nausea vomiting abdominal pain. No cough shortness of breath. She has chronic abdominal pain due to dumping syndrome after bowel resection. She was tachycardic on arrival to the ED afebrile. She received IV fluid due to concern for meningitis lumbar puncture was attempted however was unsuccessful. She had lumbar puncture in the past that led to bilateral lower extremities dialysis for several days. She does have history of multiple sclerosis as she is getting treated by a neurologist with steroid intermittently she is not on any other chronic MS medication. UA is negative influenza RSV COVID negative chest x-ray negative. Mild leukocytosis at 12.1 electrolytes unremarkable. Started on broad-spectrum antibiotics. Neurology consulted. She has been started on vancomycin ceftriaxone acyclovir for possible meningitis. CT neck unremarkable. MRI brain with left cerebral meningioma 4 x 2.1 cm in size. Needs follow-up as an outpatient basis. MRI cervical spine with mild degenerative changes otherwise unremarkable. Blood culture came back positive 02/14 for Staphylococcus hominis could be a contaminant. Will continue on vancomycin as ordered. Neurology plans continue IV antibiotics for full 2 weeks course, home infusion arrangement to be done which might be challenging as she does not have primary care. Will have care coordination consulted. Awaiting arrangements which is challenging at this point. Neurology state acyclovir can be switched to valacyclovir oral because of q.8 hour dosing. Will need vancomycin and ceftriaxone IV 12 hours for 2 total weeks Repeat blood culture ordered, day 5 Rocephin and Vancomycin DVT prophylaxis on Sq Lovenox Subjective Date/time seen: 11/21/22 17:28 Interval history: No fever chills neck pain is little better. Comfortable at bedside I have ordered repeat blood culture Review of Systems Review of Systems: - CONSTITUTIONAL: Denies weight loss, fever and chills. - HEENT: Denies changes in vision and hearing - RESPIRATORY: Denies SOB and cough. - CV: Denies palpitations and CP. - GI: Denies abdominal pain, nausea, vomiting and diarrhea. - : Denies dysuria and urinary frequency. - MSK: Denies myalgia and joint pain. - SKIN: Denies rash and pruritus. - NEUROLOGICAL: Denies headache and syncope. - PSYCHIATRIC: Denies recent changes in mood. Denies anxiety and depression. All systems reviewed & are unremarkable except as noted in HPI and below Exam Narrative: GENERAL: Well-appearing, well-nourished, and in no acute distress. HEAD: Normocephalic, atraumatic. EYES: PERRLA and EOMI. ENT: Nares clear.? Mucous membranes moist. NECK: Supple. Tender to palpation paraSpinal area CHEST: Clear to auscultation.? No respiratory distress. HEART: Regular rate and rhythm.? Normal peripheral pulses. ABDOMEN: Soft, nontender, nondistended. Has significant scarring over abdomen consistent with multiple prior bowel resections surgeries. EXTREMITIES: Normal range of motion.? No edema. SKIN: Warm, dry, no rash. NEURO: No focal deficits.? Alert and oriented x3. PSYCH: Normal mood and affect. Objective Data Vital Signs Vital Signs: Vital Signs - 24 hr 11/20/22 20:35 11/20/22 20:55 11/21/22 04:05 Temperature 98.4 F 98.1 F Pulse Rate 90 86 Respiratory Rate 20 20 Blood Pressure 123/78 110/58 L Pulse Oximetry 95 98 Oxygen Delivery Room Air
[2022-11-21 20:10] VITALS: BP 128/85; PULSE 91; RESP 18; TEMP 36.6; O2SAT 96
[2022-11-21] MEDS: CYCLOBENZAPRINE HCL 10 MG TABLET PO (21:55)
[2022-11-22] MEDS: CENTRAL LINE FLUSH 10 ML IV PUSH ×3 (05:32→22:30)
[2022-11-22] MEDS: oxyCODONE HCL (*CRX) 5 MG TAB IR 10 MG PO ×4 (05:45→23:48)
[2022-11-22 05:48] LABS: Basophils Absolute Auto 0.1 K/mm3 (0.0-0.1); Basophils Percent Auto 0.8 % (0.2-1.2); Eosinophils Absolute Auto 0.3 K/mm3 (0-0.3); Eosinophils Percent Auto 2.8 % (0-4.4); Hematocrit 35.8 % (37.0-47.0); Hemoglobin 11.7 g/dL (12.0-15.0); Immature Granulocyte Absolute 0.03 K/mm3 (0.00-0.031); Immature Granulocyte Percent A 0.3 % (0-0.5); Lymphocytes Absolute Auto 2.74 K/mm3 (0.9-3.2); Lymphocytes Percent Auto 30.3 % (18.3-44.2); Mean Corpuscular HGB Conc 32.7 g/dl (32-36); Mean Corpuscular Hemoglobin 29.8 pg (26-34); Mean Corpuscular Volume 91.1 fl (80-100); Monocytes Absolute Auto 0.8 K/mm3 (0.1-0.6); Monocytes Percent Auto 9.1 % (2.6-8.5); Neutrophils Absolute Auto 5.1 K/mm3 (1.3-6.7); Neutrophils Percent Auto 56.7 % (45.5-73.1); Platelet Count Result 261 k/mm3 (150-375); Red Blood Count 3.93 M/mm3 (4.2-5.4); Red Cell Distribution Width 12.9 % (11.5-14.5); White Blood Count 9.1 K/mm3 (4.5-10.0)
[2022-11-22 05:58] LABS: Alanine Aminotransferase 45 U/L (6-35); Albumin Level 3.6 g/dL (3.5-5.1); Alkaline Phosphatase 95 U/L (38-126); Anion Gap 6 mmol/L (8-16); Aspartate Amino Transferase 27 U/L (14-36); Bilirubin,Total 0.4 mg/dL (0.2-1.3); Blood Urea Nitrogen 12 mg/dL (7-17); Calcium 8.7 mg/dL (8.4-10.2); Carbon Dioxide 28 mmol/L (22-30); Chloride 104 mmol/L (98-107); Estimated CRCL calculation 94 ml/min; Estimated Glomerular Filt Rate > 60; Glucose 99 mg/dL (65-110); Potassium 3.6 mmol/L (3.4-5.0); Sodium 138 mmol/L (137-145)
[2022-11-22 06:00] VITALS: BP 110/52; PULSE 76; RESP 18; TEMP 36.4; O2SAT 93
[2022-11-22 08:07] VITALS: RESP 18; O2SAT 94
[2022-11-22] MEDS: DULoxetine HCL 60 MG CAPSULE.DR PO ×2 (08:07→20:39)
[2022-11-22] MEDS: ENOXAPARIN 40 MG/0.4 ML SYRINGE SUB-Q (08:07)
[2022-11-22] MEDS: cefTRIAXone 2 GM/NS 100 ML 2 GM/100 ML BAG IVPB ×2 (08:07→20:38)
--- NOTE | 2022-11-22 09:31 | PM.IMPN ---
Progress Note: A&P Assessment and Plan (1) Neck stiffness: Code(s): M43.6 - Torticollis Status: Acute (2) Fever: Code(s): R50.9 - Fever, unspecified Status: Acute Plan 42-year-old female here with fever and. Started since past few days. Generally feeling ill. Neck trauma. Planes of bilateral neck pain and stiffness. Had a temperature at home which was 102 degree for night. She also developed some blotchy skin rash on right. Initially has some sore throat but does not currently have 1. She denies nausea vomiting abdominal pain. No cough shortness of breath. She has chronic abdominal pain due to dumping syndrome after bowel resection. She was tachycardic on arrival to the ED afebrile. Suspecting meningitis/encephalitis. Neurologist is consulted She received IV fluid due to concern for meningitis lumbar puncture was attempted however was unsuccessful. She had lumbar puncture in the past that led to bilateral lower extremities dialysis for several days. She does have history of multiple sclerosis as she is getting treated by a neurologist with steroid intermittently she is not on any other chronic MS medication. UA is negative influenza RSV COVID negative chest x-ray negative. Mild leukocytosis at 12.1 electrolytes unremarkable. Started on broad-spectrum antibiotics. Neurology consulted. She has been started on vancomycin ceftriaxone acyclovir for possible meningitis. CT neck unremarkable. MRI brain with left cerebral meningioma 4 x 2.1 cm in size. Needs follow-up as an outpatient basis. MRI cervical spine with mild degenerative changes otherwise unremarkable. continue on vancomycin as ordered. Neurology plans continue IV antibiotics for full 2 weeks course, home infusion arrangement to be done which might be challenging as she does not have primary care. Will have care coordination consulted. Awaiting arrangements which is challenging at this point. Neurology state acyclovir can be switched to valacyclovir oral because of q.8 hour dosing. Will need vancomycin and ceftriaxone IV 12 hours for 2 total weeks Blood culture came back positive 11/15 for Staphylococcus hominis and Proprionibacterium acnes. could be a contaminant repeated BCX 11/21 no growth so far Patient is afebrile, blood pressure stable Repeat blood culture ordered, day 5 Rocephin and Vancomycin DVT prophylaxis on Sq Lovenox Subjective Date/time seen: 11/22/22 09:31 Interval history: I saw and examined the patient today, patient feels better today, still has some headache, improving, denies nausea vomiting photophobia. Patient is afebrile, hemodynamically stable, repeat blood culture no growth so far Exam Narrative: GENERAL: Well-appearing, well-nourished, and in no acute distress. HEAD: Normocephalic, atraumatic. EYES: PERRLA and EOMI. ENT: Nares clear.? Mucous membranes moist. NECK: Supple. Tender to palpation paraSpinal area CHEST: Clear to auscultation.? No respiratory distress. HEART: Regular rate and rhythm.? Normal peripheral pulses. ABDOMEN: Soft, nontender, nondistended. Has significant scarring over abdomen consistent with multiple prior bowel resections surgeries. EXTREMITIES: Normal range of motion.? No edema. SKIN: Warm, dry, no rash. NEURO: No focal deficits.? Alert and oriented x3. PSYCH: Normal mood and affect. Objective Data Vital Signs Vital Signs: Vital Signs - 24 hr 11/21/22 14:00 11/21/22 20:10 11/22/22 06:00 Temperature 97.4 F L 97.8 F 97.6 F Pulse Rate 80 91 76 Respiratory Rate 18 18 18 Blood Pressure 127/64 128/85 110/52 L Pulse Oximetry 99 96 93 Intake/Output Intake/Output: Intake & Output 11/19/22 11/20/22 11/21/22 11/22/22 23:59 23:59 23:59 23:59 Intake Total 3767.6 2965.6 4365.6 220 Output Total 6 Balance 3761.6 2965.6 4365.6 220 Meds/Results Medications: Active Medications Generic Name Dose Route Start Last Admin Trade Name Freq PRN Reason Stop Dos
[2022-11-22 14:00] VITALS: BP 123/58; PULSE 90; RESP 14; TEMP 37; O2SAT 96
[2022-11-22 19:31] VITALS: BP 128/70; PULSE 86; RESP 18; TEMP 36.9; O2SAT 97
[2022-11-22] MEDS: ACETAMINOPHEN 500 MG TABLET 1000 MG PO (23:10)
[2022-11-22] MEDS: CYCLOBENZAPRINE HCL 10 MG TABLET PO (23:48)
[2022-11-23] MEDS: CENTRAL LINE FLUSH 10 ML IV PUSH ×3 (05:28→22:23)
[2022-11-23 06:00] VITALS: BP 125/69; PULSE 68; RESP 18; TEMP 36.5; O2SAT 94
[2022-11-23 06:12] LABS: Vancomycin Trough 19.1 ug/mL (10.0-20.0)
--- NOTE | 2022-11-23 08:28 | PM.IMPN ---
Progress Note: A&P Assessment and Plan (1) Neck stiffness: Code(s): M43.6 - Torticollis Status: Acute (2) Fever: Code(s): R50.9 - Fever, unspecified Status: Acute Plan 42-year-old female here with fever and. Started since past few days. Generally feeling ill. Neck trauma. Planes of bilateral neck pain and stiffness. Had a temperature at home which was 102 degree for night. She also developed some blotchy skin rash on right. Initially has some sore throat but does not currently have 1. She denies nausea vomiting abdominal pain. No cough shortness of breath. She has chronic abdominal pain due to dumping syndrome after bowel resection. She was tachycardic on arrival to the ED afebrile. Suspecting meningitis/encephalitis. Neurologist is consulted She received IV fluid due to concern for meningitis lumbar puncture was attempted however was unsuccessful. She had lumbar puncture in the past that led to bilateral lower extremities dialysis for several days. She does have history of multiple sclerosis as she is getting treated by a neurologist with steroid intermittently she is not on any other chronic MS medication. UA is negative influenza RSV COVID negative chest x-ray negative. Mild leukocytosis at 12.1 electrolytes unremarkable. Started on broad-spectrum antibiotics. Neurology consulted. She has been started on vancomycin ceftriaxone acyclovir for possible meningitis. CT neck unremarkable. MRI brain with left cerebral meningioma 4 x 2.1 cm in size. Needs follow-up as an outpatient basis. MRI cervical spine with mild degenerative changes otherwise unremarkable. continue on vancomycin as ordered. Neurology plans continue IV antibiotics for full 2 weeks course, that were started on 11/16 home infusion arrangement to be done which might be challenging as she does not have primary care. care coordination consulted. Awaiting arrangements which is challenging at this point. Neurology states acyclovir can be switched to valacyclovir oral because of q.8 hour dosing. Will need vancomycin and ceftriaxone IV 12 hours for 2 total weeks Bacteremia Blood culture came back positive 11/15 for Staphylococcus hominis and Proprionibacterium acnes. could be a contaminant repeated BCX 11/21 no growth so far Patient is afebrile, blood pressure stable Repeat blood culture ordered, day 5 Rocephin and Vancomycin DVT prophylaxis on Sq Lovenox Subjective Date/time seen: 11/23/22 08:28 Interval history: I saw and examined the patient today, patient feels better today, still has some headache, improving, denies nausea vomiting photophobia. Patient is afebrile, hemodynamically stable, repeat blood culture no growth so far Exam Narrative: GENERAL: Well-appearing, well-nourished, and in no acute distress. HEAD: Normocephalic, atraumatic. EYES: PERRLA and EOMI. ENT: Nares clear.? Mucous membranes moist. NECK: Supple. Tender to palpation paraSpinal area CHEST: Clear to auscultation.? No respiratory distress. HEART: Regular rate and rhythm.? Normal peripheral pulses. ABDOMEN: Soft, nontender, nondistended. Has significant scarring over abdomen consistent with multiple prior bowel resections surgeries. EXTREMITIES: Normal range of motion.? No edema. SKIN: Warm, dry, no rash. NEURO: No focal deficits.? Alert and oriented x3. PSYCH: Normal mood and affect. Objective Data Vital Signs Vital Signs: Vital Signs - 24 hr 11/22/22 14:00 11/22/22 19:31 11/23/22 06:00 Temperature 98.6 F 98.4 F 97.7 F Pulse Rate 90 86 68 Respiratory Rate 14 18 18 Blood Pressure 123/58 L 128/70 125/69 Pulse Oximetry 96 97 94 Intake/Output Intake/Output: Intake & Output 11/20/22 11/21/22 11/22/22 11/23/22 23:59 23:59 23:59 23:59 Intake Total 2965.6 4365.6 4495.6 265.2 Output Total 3 Balance 2965.6 4365.6 4495.6 262.2 Meds/Results Medications: Active Medications Generic Name Dose Route Start Last Admin Tra
[2022-11-23] MEDS: DULoxetine HCL 60 MG CAPSULE.DR PO ×2 (08:39→20:11)
[2022-11-23] MEDS: cefTRIAXone 2 GM/NS 100 ML 2 GM/100 ML BAG IVPB ×2 (08:41→19:34)
[2022-11-23] MEDS: ENOXAPARIN 40 MG/0.4 ML SYRINGE SUB-Q (08:42)
[2022-11-23] MEDS: oxyCODONE HCL (*CRX) 5 MG TAB IR 10 MG PO ×3 (08:42→18:53)
--- NOTE | 2022-11-23 10:34 | PCNWS ---
Weekly nutritional screen. Patient is tolerating current diet with adequate intake. No weight loss reported. No nutritional needs at this time.
[2022-11-23 11:53] LABS: Basophils Absolute Auto 0.1 K/mm3 (0.0-0.1); Basophils Percent Auto 0.8 % (0.2-1.2); Eosinophils Absolute Auto 0.2 K/mm3 (0-0.3); Eosinophils Percent Auto 2.6 % (0-4.4); Hematocrit 36.2 % (37.0-47.0); Hemoglobin 11.5 g/dL (12.0-15.0); Immature Granulocyte Absolute 0.03 K/mm3 (0.00-0.031); Immature Granulocyte Percent A 0.3 % (0-0.5); Lymphocytes Absolute Auto 2.48 K/mm3 (0.9-3.2); Lymphocytes Percent Auto 26.8 % (18.3-44.2); Mean Corpuscular HGB Conc 31.8 g/dl (32-36); Mean Corpuscular Volume 91.2 fl (80-100); Mean Platelet Volume 10.1 fl (7.4-10.4); Monocytes Absolute Auto 0.8 K/mm3 (0.1-0.6); Monocytes Percent Auto 8.3 % (2.6-8.5); Neutrophils Absolute Auto 5.7 K/mm3 (1.3-6.7); Neutrophils Percent Auto 61.2 % (45.5-73.1); Platelet Count Result 249 k/mm3 (150-375); Red Blood Count 3.97 M/mm3 (4.2-5.4); Red Cell Distribution Width 12.9 % (11.5-14.5); White Blood Count 9.3 K/mm3 (4.5-10.0)
[2022-11-23 12:06] LABS: Anion Gap 5 mmol/L (8-16); Blood Urea Nitrogen 10 mg/dL (7-17); Calcium 8.9 mg/dL (8.4-10.2); Carbon Dioxide 29 mmol/L (22-30); Chloride 105 mmol/L (98-107); Estimated CRCL calculation 94 ml/min; Estimated Glomerular Filt Rate > 60; Glucose 90 mg/dL (65-110); Sodium 139 mmol/L (137-145)
[2022-11-23 17:02] VITALS: BP 144/73; PULSE 90; RESP 16; TEMP 36.8; O2SAT 96
[2022-11-23 21:48] VITALS: BP 133/78; PULSE 90; RESP 20; TEMP 36.8; O2SAT 97
[2022-11-24] MEDS: CYCLOBENZAPRINE HCL 10 MG TABLET PO ×2 (01:16→20:13)
[2022-11-24] MEDS: oxyCODONE HCL (*CRX) 5 MG TAB IR 10 MG PO ×4 (01:16→20:08)
[2022-11-24 05:57] LABS: Basophils Absolute Auto 0.1 K/mm3 (0.0-0.1); Basophils Percent Auto 0.8 % (0.2-1.2); Eosinophils Absolute Auto 0.3 K/mm3 (0-0.3); Eosinophils Percent Auto 3.4 % (0-4.4); Hematocrit 35.3 % (37.0-47.0); Hemoglobin 11.3 g/dL (12.0-15.0); Immature Granulocyte Absolute 0.02 K/mm3 (0.00-0.031); Immature Granulocyte Percent A 0.2 % (0-0.5); Lymphocytes Absolute Auto 2.62 K/mm3 (0.9-3.2); Lymphocytes Percent Auto 31.1 % (18.3-44.2); Mean Corpuscular Volume 93.6 fl (80-100); Mean Platelet Volume 10.3 fl (7.4-10.4); Monocytes Absolute Auto 0.8 K/mm3 (0.1-0.6); Neutrophils Absolute Auto 4.7 K/mm3 (1.3-6.7); Neutrophils Percent Auto 55.5 % (45.5-73.1); Platelet Count Result 248 k/mm3 (150-375); Red Blood Count 3.77 M/mm3 (4.2-5.4); Red Cell Distribution Width 13.2 % (11.5-14.5); White Blood Count 8.4 K/mm3 (4.5-10.0)
[2022-11-24 06:00] VITALS: BP 113/70; PULSE 81; RESP 18; TEMP 36.6; O2SAT 96
[2022-11-24 06:05] LABS: Anion Gap 6 mmol/L (8-16); Blood Urea Nitrogen 11 mg/dL (7-17); Calcium 8.6 mg/dL (8.4-10.2); Carbon Dioxide 28 mmol/L (22-30); Chloride 105 mmol/L (98-107); Estimated CRCL calculation 94 ml/min; Estimated Glomerular Filt Rate > 60; Glucose 94 mg/dL (65-110); Potassium 3.7 mmol/L (3.4-5.0); Sodium 139 mmol/L (137-145)
--- NOTE | 2022-11-24 08:36 | PM.IMPN ---
Progress Note: A&P Assessment and Plan (1) Neck stiffness: Code(s): M43.6 - Torticollis Status: Acute (2) Fever: Code(s): R50.9 - Fever, unspecified Status: Acute Plan 42-year-old female here with fever and. Started since past few days. Generally feeling ill. Neck trauma. Planes of bilateral neck pain and stiffness. Had a temperature at home which was 102 degree for night. She also developed some blotchy skin rash on right. Initially has some sore throat but does not currently have 1. She denies nausea vomiting abdominal pain. No cough shortness of breath. She has chronic abdominal pain due to dumping syndrome after bowel resection. She was tachycardic on arrival to the ED afebrile. Suspecting meningitis/encephalitis. Neurologist is consulted She received IV fluid due to concern for meningitis lumbar puncture was attempted however was unsuccessful. She had lumbar puncture in the past that led to bilateral lower extremities dialysis for several days. She does have history of multiple sclerosis as she is getting treated by a neurologist with steroid intermittently she is not on any other chronic MS medication. UA is negative influenza RSV COVID negative chest x-ray negative. Mild leukocytosis at 12.1 electrolytes unremarkable POA. Started on broad-spectrum antibiotics. Neurology consulted. She has been started on vancomycin ceftriaxone acyclovir for possible meningitis. CT neck unremarkable. MRI cervical spine with mild degenerative changes otherwise unremarkable. continue on vancomycin as ordered. Neurology plans continue IV antibiotics for full 2 weeks course, that were started on 11/16 home infusion arrangement to be done which might be challenging as she does not have primary care. care coordination consulted. Awaiting arrangements which is challenging at this point. C/W vancomycin and ceftriaxone IV 12 hours for 2 total weeks Meningioma MRI brain with left cerebral meningioma 4 x 2.1 cm in size. Patient has headache 08/20, concerning related to meningioma Consult neurosurgeon for evaluation Bacteremia Blood culture came back positive 11/15 for Staphylococcus hominis and Proprionibacterium acnes. could be a contaminant repeated BCX 11/21 no growth so far Patient is afebrile, blood pressure stable Repeat blood culture ordered, day 5 Rocephin and Vancomycin DVT prophylaxis on Sq Lovenox Subjective Date/time seen: 11/24/22 08:36 Interval history: I saw and examined the patient today, patient feels better today, still has some headache, intermittent headache, patient considers related to migraine, denies nausea vomiting photophobia. Patient is afebrile, hemodynamically stable, repeat blood culture no growth so far Exam Narrative: GENERAL: Well-appearing, well-nourished, and in no acute distress. HEAD: Normocephalic, atraumatic. EYES: PERRLA and EOMI. ENT: Nares clear.? Mucous membranes moist. NECK: Supple. Tender to palpation paraSpinal area CHEST: Clear to auscultation.? No respiratory distress. HEART: Regular rate and rhythm.? Normal peripheral pulses. ABDOMEN: Soft, nontender, nondistended. Has significant scarring over abdomen consistent with multiple prior bowel resections surgeries. EXTREMITIES: Normal range of motion.? No edema. SKIN: Warm, dry, no rash. NEURO: No focal deficits.? Alert and oriented x3. PSYCH: Normal mood and affect. Objective Data Vital Signs Vital Signs: Vital Signs - 24 hr 11/23/22 08:50 11/23/22 17:02 11/23/22 21:48 Temperature 98.2 F 98.3 F Pulse Rate 90 90 Respiratory Rate 16 20 Blood Pressure 144/73 H 133/78 Pulse Oximetry 96 97 Oxygen Delivery Room Air 11/23/22 20:00 11/24/22 06:00 Temperature 98 F Pulse Rate 81 Respiratory Rate 18 Blood Pressure 113/70 Pulse Oximetry 96 Oxygen Delivery Room Air Intake/Output Intake/Output: Intake & Output 11/21/22 11/22/22 11/23/22 11/24/22 23:59 23:59 23:5
[2022-11-24] MEDS: ENOXAPARIN 40 MG/0.4 ML SYRINGE SUB-Q (09:21)
[2022-11-24] MEDS: DULoxetine HCL 60 MG CAPSULE.DR PO ×2 (09:21→20:13)
[2022-11-24] MEDS: cefTRIAXone 2 GM/NS 100 ML 2 GM/100 ML BAG IVPB ×2 (09:31→20:09)
[2022-11-24] MEDS: CENTRAL LINE FLUSH 10 ML IV PUSH ×2 (13:48→22:15)
--- NOTE | 2022-11-24 13:56 | PC.NURSE ---
Spoke with Dr. Moctezuma regarding consult for neuro-surgery. Provider would like hospitalist who ordered consult (Dr. Mo) to contact her regarding questions she has before seeing patient. Called Dr. Mo and gave him Dr. Moctezuma's phone number
[2022-11-24 14:00] VITALS: BP 127/72; PULSE 94; RESP 18; TEMP 36.9; O2SAT 97
[2022-11-24] MEDS: ACETAMINOPHEN/ASPIRIN/CAFFEINE 250-250-65 MG TABLET 1 TABLET PO (18:34)
[2022-11-24] MEDS: diphenhydrAMINE HCl CAP 25 MG CAPSULE PO (18:34)
[2022-11-24 19:48] VITALS: BP 122/66; PULSE 97; RESP 18; TEMP 36.1; O2SAT 97
[2022-11-25 04:55] VITALS: BP 115/57; PULSE 71; RESP 18; TEMP 36.1; O2SAT 98
[2022-11-25] MEDS: CENTRAL LINE FLUSH 10 ML IV PUSH ×3 (06:04→22:15)
[2022-11-25 06:08] LABS: Basophils Absolute Auto 0.1 K/mm3 (0.0-0.1); Basophils Percent Auto 0.6 % (0.2-1.2); Eosinophils Absolute Auto 0.3 K/mm3 (0-0.3); Eosinophils Percent Auto 3.6 % (0-4.4); Hematocrit 35.2 % (37.0-47.0); Hemoglobin 11.4 g/dL (12.0-15.0); Immature Granulocyte Absolute 0.01 K/mm3 (0.00-0.031); Immature Granulocyte Percent A 0.1 % (0-0.5); Lymphocytes Absolute Auto 2.27 K/mm3 (0.9-3.2); Lymphocytes Percent Auto 29.1 % (18.3-44.2); Mean Corpuscular HGB Conc 32.4 g/dl (32-36); Mean Corpuscular Hemoglobin 29.6 pg (26-34); Mean Corpuscular Volume 91.4 fl (80-100); Mean Platelet Volume 9.9 fl (7.4-10.4); Monocytes Absolute Auto 0.7 K/mm3 (0.1-0.6); Monocytes Percent Auto 9.2 % (2.6-8.5); Neutrophils Absolute Auto 4.5 K/mm3 (1.3-6.7); Neutrophils Percent Auto 57.4 % (45.5-73.1); Platelet Count Result 240 k/mm3 (150-375); Red Blood Count 3.85 M/mm3 (4.2-5.4); Red Cell Distribution Width 13.2 % (11.5-14.5); White Blood Count 7.8 K/mm3 (4.5-10.0)
[2022-11-25 06:17] LABS: Anion Gap 6 mmol/L (8-16); Blood Urea Nitrogen 10 mg/dL (7-17); Calcium 8.6 mg/dL (8.4-10.2); Carbon Dioxide 28 mmol/L (22-30); Chloride 104 mmol/L (98-107); Estimated CRCL calculation 106 ml/min; Estimated Glomerular Filt Rate > 60; Glucose 92 mg/dL (65-110); Potassium 3.5 mmol/L (3.4-5.0); Sodium 138 mmol/L (137-145)
--- NOTE | 2022-11-25 07:49 | PM.IMPN ---
Progress Note: A&P Assessment and Plan (1) Neck stiffness: Code(s): M43.6 - Torticollis Status: Acute (2) Fever: Code(s): R50.9 - Fever, unspecified Status: Acute Plan 42-year-old female here with fever and. Started since past few days. Generally feeling ill. Neck trauma. Planes of bilateral neck pain and stiffness. Had a temperature at home which was 102 degree for night. She also developed some blotchy skin rash on right. Initially has some sore throat but does not currently have 1. She denies nausea vomiting abdominal pain. No cough shortness of breath. She has chronic abdominal pain due to dumping syndrome after bowel resection. She was tachycardic on arrival to the ED afebrile. Suspecting meningitis/encephalitis. Neurologist is consulted She received IV fluid due to concern for meningitis lumbar puncture was attempted however was unsuccessful. She had lumbar puncture in the past that led to bilateral lower extremities dialysis for several days. She does have history of multiple sclerosis as she is getting treated by a neurologist with steroid intermittently she is not on any other chronic MS medication. UA is negative influenza RSV COVID negative chest x-ray negative. Mild leukocytosis at 12.1 electrolytes unremarkable POA. Started on broad-spectrum antibiotics. Neurology consulted. She has been started on vancomycin ceftriaxone acyclovir for possible meningitis. CT neck unremarkable. MRI cervical spine with mild degenerative changes otherwise unremarkable. continue on vancomycin as ordered. Neurology plans continue IV antibiotics for full 2 weeks course, that were started on 11/16 home infusion arrangement to be done which might be challenging as she does not have primary care. care coordination consulted. Awaiting arrangements which is challenging at this point. C/W vancomycin and ceftriaxone IV 12 hours for 2 total weeks Meningioma MRI brain with left cerebral meningioma 4 x 2.1 cm in size. Patient has headache 08/20, concerning related to meningioma Consult neurosurgeon for evaluation. We appreciate neurologist consultation. Neurosurgeon, Dr. Moctezuma considers this lesion is shallow lesion occurs within the dura, no surgical indication now. Neurosurgeon also recommends serial clinical and radiographic assessment including follow up in the neurosurgical clinic in 2-3 months with repeat MRI brain with and without contrast Bacteremia Blood culture came back positive 11/15 for Staphylococcus hominis and Proprionibacterium acnes. could be a contaminant repeated BCX 11/21 no growth so far Patient is afebrile, blood pressure stable Repeat blood culture ordered, day 5 Rocephin and Vancomycin DVT prophylaxis on Sq Lovenox Subjective Date/time seen: 11/25/22 07:49 Interval history: I saw and examined patient today. Patient has some headache, better controlled. Patient denies focal weakness, vision change, fever, chills, abdomen pain, nausea vomiting diarrhea. Exam Narrative: GENERAL: Well-appearing, well-nourished, and in no acute distress. HEAD: Normocephalic, atraumatic. EYES: PERRLA and EOMI. ENT: Nares clear.? Mucous membranes moist. NECK: Supple. Tender to palpation paraSpinal area CHEST: Clear to auscultation.? No respiratory distress. HEART: Regular rate and rhythm.? Normal peripheral pulses. ABDOMEN: Soft, nontender, nondistended. Has significant scarring over abdomen consistent with multiple prior bowel resections surgeries. EXTREMITIES: Normal range of motion.? No edema. SKIN: Warm, dry, no rash. NEURO: No focal deficits.? Alert and oriented x3. PSYCH: Normal mood and affect. Objective Data Vital Signs Vital Signs: Vital Signs - 24 hr 11/24/22 09:30 11/24/22 14:00 11/24/22 19:36 Temperature 98.5 F Pulse Rate 94 Respiratory Rate 18 Blood Pressure 127/72 Pulse Oximetry 97 Oxygen Delivery Room Air Room Air 11/24/22 19:48 11/25/22 04:5
[2022-11-25] MEDS: ENOXAPARIN 40 MG/0.4 ML SYRINGE SUB-Q (08:34)
[2022-11-25] MEDS: DULoxetine HCL 60 MG CAPSULE.DR PO ×2 (08:34→20:26)
[2022-11-25] MEDS: oxyCODONE HCL (*CRX) 5 MG TAB IR 10 MG PO ×3 (08:34→20:26)
[2022-11-25] MEDS: cefTRIAXone 2 GM/NS 100 ML 2 GM/100 ML BAG IVPB ×2 (08:34→19:34)
--- NOTE | 2022-11-25 10:18 | WPDNEUROSGPN ---
Subjective Date/time seen: 11/25/22 10:18 Interval history: Asked to review MRI by Dr. Mo Patient with relatively complex medical history including fever and current treatment for presumed meningitis (although this has not been documented by LP as patient has prior history of of issues with lumbar puncture MRI brain shows enhancing lesion over convexity dura on the left in the left frontotemporal region. MRI report suggests a 4 x 2 cm meningioma, however, to my review the lesion appears to have these dimensions in the cranio-caudal and AP dimensions, not in axial dimensions (this appears to be a very shallow lesion that occurs within the dura). Total measurements would be 4 x 2 x 0;5cm without significant mass effect or surrounding edema. While exact etiology is uncertain I see no indication for urgent intervention. I would recommend serial clinical and radiographic assessement including follow up in the neurosurgical clinic in 2-3 months with repeat MRI brain with and without contrast prior. Based upon discussions with nursing and Dr. Mo patient is clinically stable at this time and remains in hospital primarily becuase she does not have resources to allow home provision of antibiotics. Of course if patient worsens clinically please call neurosurgery service but otherwise I do not see an indication for repeat imaging during this hospitalization. Objective Data Vital Signs Vital Signs: Vital Signs - 24 hr 11/24/22 14:00 11/24/22 19:36 11/24/22 19:48 Temperature 98.5 F 97 F L Pulse Rate 94 97 Respiratory Rate 18 18 Blood Pressure 127/72 122/66 Pulse Oximetry 97 97 Oxygen Delivery Room Air 11/25/22 04:55 Temperature 97 F L Pulse Rate 71 Respiratory Rate 18 Blood Pressure 115/57 L Pulse Oximetry 98 Oxygen Delivery Intake/Output Intake/Output: Intake & Output 11/22/22 11/23/22 11/24/22 11/25/22 23:59 23:59 23:59 23:59 Intake Total 4495.6 2235.6 2380.4 905.2 Output Total 3 Balance 4495.6 2232.6 2380.4 905.2 Meds/Results Medications: Active Medications Generic Name Dose Route Start Last Admin Trade Name Freq PRN Reason Stop Dose Admin Acetaminophen 1,000 mg 11/23/22 00:00 11/22/22 23:10 Acetaminophen 500 Mg Tablet PO 1,000 mg Q6H PRN Administration Headache Acetaminophen/Aspirin/Caffeine 1 tablet 11/24/22 18:22 11/24/22 18:34 Acetaminophen/Aspirin/Caffeine 250-250-65 Mg Tablet PO 1 tablet Q6H PRN Administration Pain Rated 1-3 Cyclobenzaprine HCl 10 mg 11/16/22 01:07 11/24/22 20:13 Cyclobenzaprine Hcl 10 Mg Tablet PO 10 mg TID PRN Administration Muscle Spasm Diphenhydramine HCl 25 mg 11/24/22 18:20 11/24/22 18:34 Diphenhydramine Hcl Cap 25 Mg Capsule PO 25 mg Q6H PRN Administration Headache Duloxetine HCl 60 mg 11/16/22 09:00 11/25/22 08:34 Duloxetine Hcl 60 Mg Capsule.Dr PO 60 mg Q12HR NAVIN Administration Enoxaparin Sodium 40 mg 11/22/22 09:00 11/25/22 08:34 Enoxaparin 40 Mg/0.4 Ml Syringe SUB-Q 40 mg DAILY NAVIN Administration Vancomycin HCl 1,500 mg in 500 mls @ 250 mls/hr 11/16/22 09:00 11/25/22 09:27 Vancomycin 1,500 Mg/D5w 500 Ml IVPB 11/29/22 23:59 250 mls/hr Q12H NAVIN Administration Ceftriaxone Sodium 2 gm in 100 mls @ 200 mls/hr 11/16/22 20:00 11/25/22 09:04 Rocephin 2 Gm/Ns 100 Ml IVPB 11/29/22 23:59 Infused Q12H NAVIN Infusion Acyclovir Sodium 760 mg/ 265.2 mls @ 250 mls/hr 11/19/22 22:00 11/25/22 06:00 Dextrose IVPB 11/29/22 23:59 250 mls/hr Q8H NAVIN Administration Miscellaneous Information 0 each 11/25/22 00:01 Oxycodone Renew If Still Needs Or Will Auto D/C XX 12/25/22 00:00 CLARIFY NAVIN Ondansetron HCl 4 mg 11/21/22 23:25 Ondansetron Inj 4 Mg/2 Ml Vial IV PUSH Q6H PRN Nausea And Vomiting Oxycodone HCl 10 mg 11/16/22 01:07 11/25/22 08:34 Oxycodone Hcl (*Crx) 5 Mg Tab Ir PO 10 mg QID PRN Administration Pain 7-10 [place]
[2022-11-25 14:00] VITALS: BP 122/83; PULSE 83; RESP 18; TEMP 36.8; O2SAT 100
[2022-11-25 21:11] VITALS: BP 131/67; PULSE 80; RESP 17; TEMP 36.8; O2SAT 97
[2022-11-26] MEDS: FLUCONAZOLE 100 MG TABLET 200 MG PO
[2022-11-26 05:44] VITALS: BP 123/62; PULSE 72; RESP 17; TEMP 36.8; O2SAT 96
[2022-11-26] MEDS: CENTRAL LINE FLUSH 10 ML IV PUSH ×3 (06:13→22:30)
[2022-11-26 06:34] LABS: Estimated CRCL calculation 94 ml/min; Estimated Glomerular Filt Rate > 60
[2022-11-26 06:42] LABS: Vancomycin Trough 19.2 ug/mL (10.0-20.0)
--- NOTE | 2022-11-26 07:35 | PM.IMPN ---
Progress Note: A&P Assessment and Plan (1) Neck stiffness: Code(s): M43.6 - Torticollis Status: Acute (2) Fever: Code(s): R50.9 - Fever, unspecified Status: Acute Plan 42-year-old female here with fever and. Started since past few days. Generally feeling ill. Neck trauma. Planes of bilateral neck pain and stiffness. Had a temperature at home which was 102 degree for night. She also developed some blotchy skin rash on right. Initially has some sore throat but does not currently have 1. She denies nausea vomiting abdominal pain. No cough shortness of breath. She has chronic abdominal pain due to dumping syndrome after bowel resection. She was tachycardic on arrival to the ED afebrile. Suspecting meningitis/encephalitis. Neurologist is consulted She received IV fluid due to concern for meningitis lumbar puncture was attempted however was unsuccessful. She had lumbar puncture in the past that led to bilateral lower extremities dialysis for several days. She does have history of multiple sclerosis as she is getting treated by a neurologist with steroid intermittently she is not on any other chronic MS medication. UA is negative influenza RSV COVID negative chest x-ray negative. Mild leukocytosis at 12.1 electrolytes unremarkable POA. Started on broad-spectrum antibiotics. Neurology consulted. She has been started on vancomycin ceftriaxone acyclovir for possible meningitis. CT neck unremarkable. MRI cervical spine with mild degenerative changes otherwise unremarkable. continue on vancomycin as ordered. Neurology plans continue IV antibiotics for full 2 weeks course, that were started on 11/16 home infusion arrangement to be done which might be challenging as she does not have primary care. care coordination consulted. Awaiting arrangements which is challenging at this point. C/W vancomycin and ceftriaxone IV 12 hours for 2 total weeks Meningioma MRI brain with left cerebral meningioma 4 x 2.1 cm in size. Patient has headache 08/20, concerning related to meningioma Consult neurosurgeon for evaluation. We appreciate neurologist consultation. Neurosurgeon, Dr. Moctezuma considers this lesion is shallow lesion occurs within the dura, no surgical indication now. Neurosurgeon also recommends serial clinical and radiographic assessment including follow up in the neurosurgical clinic in 2-3 months with repeat MRI brain with and without contrast Bacteremia Blood culture came back positive 11/15 for Staphylococcus hominis and Proprionibacterium acnes. could be a contaminant repeated BCX 11/21 no growth so far Patient is afebrile, blood pressure stable DVT prophylaxis on Sq Lovenox Subjective Date/time seen: 11/26/22 07:35 Interval history: I saw and examined patient today. Patient denies focal weakness, vision change, fever, chills, abdomen pain, nausea vomiting diarrhea. Exam Narrative: GENERAL: Well-appearing, well-nourished, and in no acute distress. HEAD: Normocephalic, atraumatic. EYES: PERRLA and EOMI. ENT: Nares clear.? Mucous membranes moist. NECK: Supple. Tender to palpation paraSpinal area CHEST: Clear to auscultation.? No respiratory distress. HEART: Regular rate and rhythm.? Normal peripheral pulses. ABDOMEN: Soft, nontender, nondistended. Has significant scarring over abdomen consistent with multiple prior bowel resections surgeries. EXTREMITIES: Normal range of motion.? No edema. SKIN: Warm, dry, no rash. NEURO: No focal deficits.? Alert and oriented x3. PSYCH: Normal mood and affect. Objective Data Vital Signs Vital Signs: Vital Signs - 24 hr 11/25/22 08:45 11/25/22 14:00 11/25/22 19:53 Temperature 98.3 F Pulse Rate 83 Respiratory Rate 18 Blood Pressure 122/83 Pulse Oximetry 100 Oxygen Delivery Room Air Room Air 11/25/22 21:11 11/26/22 05:44 Temperature 98.3 F 98.2 F Pulse Rate 80 72 Respiratory Rate 17 17 Blood Pressure 131/67 123/62 Pul
[2022-11-26] MEDS: oxyCODONE HCL (*CRX) 5 MG TAB IR 10 MG PO ×3 (07:40→20:11)
[2022-11-26] MEDS: cefTRIAXone 2 GM/NS 100 ML 2 GM/100 ML BAG IVPB ×2 (07:40→20:10)
[2022-11-26 08:00] VITALS: O2SAT 96
--- NOTE | 2022-11-26 08:37 | PHAR ---
VANCO TROUGH LEVEL DRAWN 2 HRS EARLY. TROUGH LEVEL = 19.2 NO CHANGE IN DOSE. RECHECK LEVEL 11/29 AM
[2022-11-26] MEDS: DULoxetine HCL 60 MG CAPSULE.DR PO ×2 (08:41→20:11)
[2022-11-26] MEDS: ENOXAPARIN 40 MG/0.4 ML SYRINGE SUB-Q (08:42)
[2022-11-26 14:00] VITALS: BP 122/56; PULSE 80; RESP 18; TEMP 36.4; O2SAT 98
[2022-11-26 19:57] VITALS: BP 139/81; PULSE 96; RESP 18; TEMP 37.1; O2SAT 99
[2022-11-26] MEDS: CYCLOBENZAPRINE HCL 10 MG TABLET PO ×2 (20:11)
[2022-11-27 05:16] VITALS: BP 112/59; PULSE 80; RESP 18; TEMP 37.1; O2SAT 95
[2022-11-27] MEDS: CENTRAL LINE FLUSH 10 ML IV PUSH ×2 (05:21→23:11)
[2022-11-27] MEDS: oxyCODONE HCL (*CRX) 5 MG TAB IR 10 MG PO ×4 (05:51→23:11)
[2022-11-27] MEDS: cefTRIAXone 2 GM/NS 100 ML 2 GM/100 ML BAG IVPB ×2 (07:29→20:30)
[2022-11-27 08:00] VITALS: O2SAT 95
[2022-11-27] MEDS: DULoxetine HCL 60 MG CAPSULE.DR PO ×2 (08:26→20:35)
[2022-11-27] MEDS: ENOXAPARIN 40 MG/0.4 ML SYRINGE SUB-Q (08:26)
[2022-11-27 10:46] VITALS: O2SAT 96
[2022-11-27 14:38] VITALS: BP 134/66; PULSE 86; RESP 16; TEMP 36.8; O2SAT 93
--- NOTE | 2022-11-27 14:55 | PM.IMPN ---
Progress Note: A&P Assessment and Plan (1) Neck stiffness: Code(s): M43.6 - Torticollis Status: Acute (2) Fever: Code(s): R50.9 - Fever, unspecified Status: Acute Plan 42-year-old female here with fever and. Started since past few days. Generally feeling ill. Neck trauma. Planes of bilateral neck pain and stiffness. Had a temperature at home which was 102 degree for night. She also developed some blotchy skin rash on right. Initially has some sore throat but does not currently have 1. She denies nausea vomiting abdominal pain. No cough shortness of breath. She has chronic abdominal pain due to dumping syndrome after bowel resection. She was tachycardic on arrival to the ED afebrile. Suspecting meningitis/encephalitis. Neurologist is consulted She received IV fluid due to concern for meningitis lumbar puncture was attempted however was unsuccessful. She had lumbar puncture in the past that led to bilateral lower extremities dialysis for several days. She does have history of multiple sclerosis as she is getting treated by a neurologist with steroid intermittently she is not on any other chronic MS medication. UA is negative influenza RSV COVID negative chest x-ray negative. Mild leukocytosis at 12.1 electrolytes unremarkable POA. Started on broad-spectrum antibiotics. Neurology consulted. She has been started on vancomycin ceftriaxone acyclovir for possible meningitis. CT neck unremarkable. MRI cervical spine with mild degenerative changes otherwise unremarkable. continue on vancomycin as ordered. Neurology plans continue IV antibiotics for full 2 weeks course, that were started on 11/16 home infusion arrangement to be done which might be challenging as she does not have primary care. care coordination consulted. Awaiting arrangements which is challenging at this point. C/W vancomycin and ceftriaxone IV 12 hours for 2 total weeks Meningioma MRI brain with left cerebral meningioma 4 x 2.1 cm in size. Patient has headache 08/20, concerning related to meningioma Consult neurosurgeon for evaluation. We appreciate neurologist consultation. Neurosurgeon, Dr. Moctezuma considers this lesion is shallow lesion occurs within the dura, no surgical indication now. Neurosurgeon also recommends serial clinical and radiographic assessment including follow up in the neurosurgical clinic in 2-3 months with repeat MRI brain with and without contrast Bacteremia Blood culture came back positive 11/15 for Staphylococcus hominis and Proprionibacterium acnes. could be a contaminant repeated BCX 11/21 no growth so far Patient is afebrile, blood pressure stable DVT prophylaxis on Sq Lovenox Subjective Date/time seen: 11/27/22 14:55 Interval history: I saw and examined patient today. Patient has no new issue even overnight, has intermittent headache, denies focal weakness, vision change, fever, chills, abdomen pain, nausea vomiting diarrhea. Exam Narrative: GENERAL: Well-appearing, well-nourished, and in no acute distress. HEAD: Normocephalic, atraumatic. EYES: PERRLA and EOMI. ENT: Nares clear.? Mucous membranes moist. NECK: Supple. Tender to palpation paraSpinal area CHEST: Clear to auscultation.? No respiratory distress. HEART: Regular rate and rhythm.? Normal peripheral pulses. ABDOMEN: Soft, nontender, nondistended. Has significant scarring over abdomen consistent with multiple prior bowel resections surgeries. EXTREMITIES: Normal range of motion.? No edema. SKIN: Warm, dry, no rash. NEURO: No focal deficits.? Alert and oriented x3. PSYCH: Normal mood and affect. Objective Data Vital Signs Vital Signs: Vital Signs - 24 hr 11/26/22 19:43 11/26/22 19:57 11/27/22 05:16 Temperature 98.8 F 98.8 F Pulse Rate 96 80 Respiratory Rate 18 18 Blood Pressure 139/81 112/59 L Pulse Oximetry 99 95 Oxygen Delivery Room Air 11/27/22 08:00 11/27/22 10:46 11/27/22 14:38 Temperature 98
[2022-11-27 21:34] VITALS: BP 126/67; PULSE 85; RESP 20; TEMP 36.4; O2SAT 97
[2022-11-27] MEDS: CYCLOBENZAPRINE HCL 10 MG TABLET PO (23:11)
[2022-11-28 06:00] VITALS: BP 110/65; PULSE 77; RESP 20; TEMP 37; O2SAT 100
[2022-11-28] MEDS: oxyCODONE HCL (*CRX) 5 MG TAB IR 10 MG PO ×3 (06:29→18:45)
[2022-11-28] MEDS: CENTRAL LINE FLUSH 10 ML IV PUSH ×3 (06:29→20:28)
[2022-11-28 06:49] LABS: Estimated CRCL calculation 106 ml/min; Estimated Glomerular Filt Rate > 60
[2022-11-28] MEDS: DULoxetine HCL 60 MG CAPSULE.DR PO ×2 (09:09→20:24)
[2022-11-28] MEDS: ENOXAPARIN 40 MG/0.4 ML SYRINGE SUB-Q (09:09)
[2022-11-28] MEDS: cefTRIAXone 2 GM/NS 100 ML 2 GM/100 ML BAG IVPB ×2 (09:12→20:27)
[2022-11-28 12:26] VITALS: BP 135/81
--- NOTE | 2022-11-28 14:36 | PM.IMPN ---
Progress Note: A&P Assessment and Plan (1) Neck stiffness: Code(s): M43.6 - Torticollis Status: Acute (2) Fever: Code(s): R50.9 - Fever, unspecified Status: Acute Plan 42-year-old female here with fever and. Started since past few days. Generally feeling ill. Neck trauma. Planes of bilateral neck pain and stiffness. Had a temperature at home which was 102 degree for night. She also developed some blotchy skin rash on right. Initially has some sore throat but does not currently have 1. She denies nausea vomiting abdominal pain. No cough shortness of breath. She has chronic abdominal pain due to dumping syndrome after bowel resection. She was tachycardic on arrival to the ED afebrile. Suspecting meningitis/encephalitis. Neurologist is consulted She received IV fluid due to concern for meningitis lumbar puncture was attempted however was unsuccessful. She had lumbar puncture in the past that led to bilateral lower extremities dialysis for several days. She does have history of multiple sclerosis as she is getting treated by a neurologist with steroid intermittently she is not on any other chronic MS medication. UA is negative influenza RSV COVID negative chest x-ray negative. Mild leukocytosis at 12.1 electrolytes unremarkable POA. Started on broad-spectrum antibiotics. Neurology consulted. She has been started on vancomycin ceftriaxone acyclovir for possible meningitis. CT neck unremarkable. MRI cervical spine with mild degenerative changes otherwise unremarkable. continue on vancomycin as ordered. Neurology plans continue IV antibiotics for full 2 weeks course, that were started on 11/16 home infusion arrangement to be done which might be challenging as she does not have primary care. care coordination consulted. Awaiting arrangements which is challenging at this point. C/W vancomycin and ceftriaxone IV 12 hours for 2 total weeks Stop date is tomorrow Meningioma MRI brain with left cerebral meningioma 4 x 2.1 cm in size. Patient has headache 08/20, concerning related to meningioma Consult neurosurgeon for evaluation. We appreciate neurologist consultation. Neurosurgeon, Dr. Moctezuma considers this lesion is shallow lesion occurs within the dura, no surgical indication now. Neurosurgeon also recommends serial clinical and radiographic assessment including follow up in the neurosurgical clinic in 2-3 months with repeat MRI brain with and without contrast Bacteremia Blood culture came back positive 11/15 for Staphylococcus hominis and Proprionibacterium acnes. could be a contaminant repeated BCX 11/21 no growth so far Patient is afebrile, blood pressure stable DVT prophylaxis on Sq Lovenox Subjective Date/time seen: 11/28/22 14:36 Interval history: I saw and examined patient today. Patient has having mild neck pain feels much improved no rash on neck today Review of Systems Review of Systems: Neck stiffness mild Exam Narrative: GENERAL: Well-appearing, well-nourished, and in no acute distress. HEAD: Normocephalic, atraumatic. EYES: PERRLA and EOMI. ENT: Nares clear.? Mucous membranes moist. NECK: Supple. Tender to palpation paraSpinal area CHEST: Clear to auscultation.? No respiratory distress. HEART: Regular rate and rhythm.? Normal peripheral pulses. ABDOMEN: Soft, nontender, nondistended. Has significant scarring over abdomen consistent with multiple prior bowel resections surgeries. EXTREMITIES: Normal range of motion.? No edema. SKIN: Warm, dry, no rash. NEURO: No focal deficits.? Alert and oriented x3. PSYCH: Normal mood and affect. Objective Data Vital Signs Vital Signs: Vital Signs - 24 hr 11/27/22 14:38 11/27/22 19:16 11/27/22 21:34 Temperature 36.8 C 36.4 C L Pulse Rate 86 85 Respiratory Rate 16 20 Blood Pressure 134/66 126/67 Pulse Oximetry 93 97 Oxygen Delivery Room Air 11/28/22 06:00 11/28/22 12:26 11/28/22 09:00 Tempera
[2022-11-28 15:01] VITALS: BP 136/47; PULSE 91; RESP 16; TEMP 37.1; O2SAT 95
[2022-11-28 19:52] VITALS: BP 141/83; PULSE 75; RESP 18; TEMP 37.1; O2SAT 97
[2022-11-28 20:00] VITALS: PULSE 75; RESP 18; O2SAT 97
[2022-11-29] MEDS: CYCLOBENZAPRINE HCL 10 MG TABLET PO ×2 (00:39→21:21)
[2022-11-29] MEDS: oxyCODONE HCL (*CRX) 5 MG TAB IR 10 MG PO ×4 (00:39→21:21)
[2022-11-29] MEDS: CENTRAL LINE FLUSH 10 ML IV PUSH ×3 (05:21→23:43)
[2022-11-29 06:00] VITALS: BP 115/61; PULSE 85; RESP 18; TEMP 36.5; O2SAT 95
[2022-11-29] MEDS: cefTRIAXone 2 GM/NS 100 ML 2 GM/100 ML BAG IVPB ×2 (08:45→20:05)
[2022-11-29 08:46] LABS: Hematocrit 35.5 % (37.0-47.0); Hemoglobin 11.3 g/dL (12.0-15.0); Mean Corpuscular HGB Conc 31.8 g/dl (32-36); Mean Corpuscular Hemoglobin 29.4 pg (26-34); Mean Corpuscular Volume 92.2 fl (80-100); Mean Platelet Volume 10.1 fl (7.4-10.4); Platelet Count Result 234 k/mm3 (150-375); Red Blood Count 3.85 M/mm3 (4.2-5.4); Red Cell Distribution Width 13.7 % (11.5-14.5); White Blood Count 6.3 K/mm3 (4.5-10.0)
[2022-11-29] MEDS: DULoxetine HCL 60 MG CAPSULE.DR PO ×2 (08:46→21:16)
[2022-11-29] MEDS: ENOXAPARIN 40 MG/0.4 ML SYRINGE SUB-Q (08:46)
[2022-11-29 08:55] LABS: Anion Gap 6 mmol/L (8-16); Blood Urea Nitrogen 12 mg/dL (7-17); Calcium 8.8 mg/dL (8.4-10.2); Carbon Dioxide 28 mmol/L (22-30); Chloride 102 mmol/L (98-107); Estimated CRCL calculation 106 ml/min; Estimated Glomerular Filt Rate > 60; Glucose 91 mg/dL (65-110); Potassium 4.1 mmol/L (3.4-5.0); Sodium 136 mmol/L (137-145)
[2022-11-29 09:07] LABS: Vancomycin Trough 15.7 ug/mL (10.0-20.0)
[2022-11-29 14:14] VITALS: BP 103/52; PULSE 94; RESP 16; TEMP 36.9; O2SAT 94
--- NOTE | 2022-11-29 14:45 | PM.IMPN ---
Progress Note: A&P Assessment and Plan (1) Neck stiffness: Code(s): M43.6 - Torticollis Status: Acute (2) Fever: Code(s): R50.9 - Fever, unspecified Status: Acute Plan 42-year-old female here with fever and. Started since past few days. Generally feeling ill. Neck trauma. Planes of bilateral neck pain and stiffness. Had a temperature at home which was 102 degree for night. She also developed some blotchy skin rash on right. Initially has some sore throat but does not currently have 1. She denies nausea vomiting abdominal pain. No cough shortness of breath. She has chronic abdominal pain due to dumping syndrome after bowel resection. She was tachycardic on arrival to the ED afebrile. Suspecting meningitis/encephalitis. Neurologist is consulted She received IV fluid due to concern for meningitis lumbar puncture was attempted however was unsuccessful. She had lumbar puncture in the past that led to bilateral lower extremities dialysis for several days. She does have history of multiple sclerosis as she is getting treated by a neurologist with steroid intermittently she is not on any other chronic MS medication. UA is negative influenza RSV COVID negative chest x-ray negative. Mild leukocytosis at 12.1 electrolytes unremarkable POA. Started on broad-spectrum antibiotics. Neurology consulted. She has been started on vancomycin ceftriaxone acyclovir for possible meningitis. CT neck unremarkable. MRI cervical spine with mild degenerative changes otherwise unremarkable. continue on vancomycin as ordered. Neurology plans continue IV antibiotics for full 2 weeks course, that were started on 11/16 home infusion arrangement to be done which might be challenging as she does not have primary care. care coordination consulted. Awaiting arrangements which is challenging at this point. C/W vancomycin and ceftriaxone IV 12 hours for 2 total weeks Stop date is ton Meningioma MRI brain with left cerebral meningioma 4 x 2.1 cm in size. Patient has headache 08/20, concerning related to meningioma Consult neurosurgeon for evaluation. We appreciate neurologist consultation. Neurosurgeon, Dr. Moctezuma considers this lesion is shallow lesion occurs within the dura, no surgical indication now. Neurosurgeon also recommends serial clinical and radiographic assessment including follow up in the neurosurgical clinic in 2-3 months with repeat MRI brain with and without contrast Bacteremia Blood culture came back positive 11/15 for Staphylococcus hominis and Proprionibacterium acnes. could be a contaminant repeated BCX 11/21 no growth so far Patient is afebrile, blood pressure stable DVT prophylaxis on Sq Lovenox Subjective Date/time seen: 11/29/22 14:45 Interval history: Next feels better. Has some headache which is chronic. No new complaints. Since antibiotics tonight. Review of Systems Review of Systems: All systems reviewed & are unremarkable except as noted in HPI and below Exam Narrative: GENERAL: Well-appearing, well-nourished, and in no acute distress. HEAD: Normocephalic, atraumatic. EYES: PERRLA and EOMI. ENT: Nares clear.? Mucous membranes moist. NECK: Supple. Tender to palpation paraSpinal area CHEST: Clear to auscultation.? No respiratory distress. HEART: Regular rate and rhythm.? Normal peripheral pulses. ABDOMEN: Soft, nontender, nondistended. Has significant scarring over abdomen consistent with multiple prior bowel resections surgeries. EXTREMITIES: Normal range of motion.? No edema. SKIN: Warm, dry, no rash. NEURO: No focal deficits.? Alert and oriented x3. PSYCH: Normal mood and affect. Objective Data Vital Signs Vital Signs: Vital Signs - 24 hr 11/28/22 15:01 11/28/22 19:52 11/28/22 20:00 Temperature 98.7 F 98.8 F Pulse Rate 91 75 75 Respiratory Rate 16 18 18 Blood Pressure 136/47 L 141/83 H Pulse Oximetry 95 97 97 Oxygen Delivery Room Air 11/29/22 06:
[2022-11-29 20:10] VITALS: BP 104/65; PULSE 83; RESP 18; TEMP 36.8; O2SAT 94
[2022-11-29 22:27] VITALS: O2SAT 94
[2022-11-30 05:42] LABS: Estimated CRCL calculation 106 ml/min; Estimated Glomerular Filt Rate > 60
[2022-11-30] MEDS: CENTRAL LINE FLUSH 10 ML IV PUSH (05:48)
[2022-11-30] MEDS: CENTRAL LINE FLUSH 20 ML IV PUSH (05:48)
[2022-11-30 06:00] VITALS: BP 96/58; PULSE 83; RESP 18; TEMP 36.4; O2SAT 97
[2022-11-30] MEDS: DULoxetine HCL 60 MG CAPSULE.DR PO (08:15)
[2022-11-30] MEDS: ENOXAPARIN 40 MG/0.4 ML SYRINGE SUB-Q (08:16)
[2022-11-30] MEDS: oxyCODONE HCL (*CRX) 5 MG TAB IR 10 MG PO (08:16)
--- NOTE | 2022-11-30 09:46 | PCNWS ---
Weekly nutritional screen. Patient is tolerating current diet with adequate intake. No weight loss reported. No nutritional needs at this time.
--- NOTE | 2022-11-30 10:39 | PM.DS ---
DS: Admitting Diagnosis Discharge Date 11/30/2022 Admitting Diagnosis Neck pain DS: Discharge Diagnosis Discharge Diagnosis (1) Neck stiffness: Code(s): M43.6 - Torticollis Status: Acute (2) Fever: Code(s): R50.9 - Fever, unspecified Status: Acute DS: Summary Hospital Course Hospital Course: 42-year-old female here with fever and.? Started since past few days.? Generally feeling ill.? Neck trauma.? Planes of bilateral neck pain and stiffness.? Had a temperature at home which was 102 degree for night.? She also developed some blotchy skin rash on right.? Initially has some sore throat but does not currently have 1.? She denies nausea vomiting abdominal pain.? No cough shortness of breath.? She has chronic abdominal pain due to dumping syndrome after bowel resection.? She was tachycardic on arrival to the ED afebrile.? Suspecting meningitis/encephalitis. Neurologist is consulted She received IV fluid due to concern for meningitis lumbar puncture was attempted however was unsuccessful.? She had lumbar puncture in the past that led to bilateral lower extremities dialysis for several days.? She does have history of multiple sclerosis as she is getting treated by a neurologist with steroid intermittently she is not on any other chronic MS medication.? UA is negative influenza RSV COVID negative chest x-ray negative.? Mild leukocytosis at 12.1 electrolytes unremarkable POA.? Started on broad-spectrum antibiotics.? Neurology consulted.? She has been started on vancomycin ceftriaxone acyclovir for possible meningitis.? CT neck unremarkable.? MRI cervical spine with mild degenerative changes otherwise unremarkable. continue on vancomycin as ordered. Neurology plans continue IV antibiotics for full 2 weeks course, that were started on 11/16 home infusion arrangement to be done which might be challenging as she does not have primary care. care coordination consulted. Awaiting arrangements which is challenging at this point.? C/W? vancomycin and ceftriaxone IV 12 hours for 2 total weeks Finished antibiotic course during the hospital stay Meningioma MRI brain with left cerebral meningioma 4 x 2.1 cm in size. Patient has headache 08/20, concerning related to meningioma Consult neurosurgeon for evaluation. We appreciate neurologist consultation.? Neurosurgeon, Dr. Moctezuma considers this lesion is shallow lesion occurs within the dura, no surgical indication now.? Neurosurgeon also recommends serial clinical and radiographic assessment including follow up in the neurosurgical clinic in 2-3 months with repeat MRI brain with and without contrast Bacteremia Blood culture came back positive 11/15 for Staphylococcus hominis and?Proprionibacterium acnes.?? could be a contaminant repeated BCX 11/21 no growth so far Patient is afebrile, blood pressure stable DVT prophylaxis on Sq Lovenox Time Spent with Patient Time attestation: Total time spent providing and/or coordinating discharge services: 30 minutes Exam Narrative: GENERAL: Well-appearing, well-nourished, and in no acute distress. HEAD: Normocephalic, atraumatic. EYES: PERRLA and EOMI. ENT: Nares clear.? Mucous membranes moist. NECK: Supple. Tender to palpation paraSpinal area CHEST: Clear to auscultation.? No respiratory distress. HEART: Regular rate and rhythm.? Normal peripheral pulses. ABDOMEN: Soft, nontender, nondistended. Has significant scarring over abdomen consistent with multiple prior bowel resections surgeries. EXTREMITIES: Normal range of motion.? No edema. SKIN: Warm, dry, no rash. NEURO: No focal deficits.? Alert and oriented x3. PSYCH: Normal mood and affect. DS: Data Data Completed and Pending Labs on day of discharge: Labs from last 24 hours 11/30/22 05:18 Creatinine 0.70 Estim Creat Clear Calc 106 Estimated GFR > 60 Imaging Radiologist's impression: ITS Impressions Chest X-Ray 11/15/22 16:04 IMPRESSION: 1. No acute cardiop
== END 2022-11-30 14:40 | disposition home or self-care (01) | DRG 50 ==
LOC: ANHED 16:35 → ANH2MED 22:05
PROVIDERS: Family Medicine; Hospitalist; Internal Medicine; Admitting Provider Internal Medicine; Emergency Provider Student in an Organized Health Care Education/Training Program; Visit Provider Internal Medicine
DX: G03.9 Meningitis, unspecified (principal); K91.1 Postgastric surgery syndromes; R21 Rash and other nonspecific skin eruption; R00.0 Tachycardia, unspecified; Z20.822 Contact with and (suspected) exposure to COVID-19; G35 Multiple sclerosis; D32.0 Benign neoplasm of cerebral meninges; F17.210 Nicotine dependence, cigarettes, uncomplicated; D72.829 Elevated white blood cell count, unspecified
CPT/HCPCS: 36415; 36569; 62270; 70491; 70553; 71046; 72156; 80048; 80053; 80202; 81001; 81025; 82565; 83605; 83735; 85025; 85027; 85610; 85730; 86140; 86308; 87040; 87147; 87181; 87186; 87637; 87651; 96374; 96375; 96376; 99285; A9270; A9577; G0378; G0379; J0133; J0696; J1650; J2270; J2405; J3370; J7060; J7120; Q9967

== ENCOUNTER 2024-05-17 16:04 | Emergency (ER) | payer OTHER, SELFPAY ==
--- OUTSIDE RECORDS SUMMARY | 2024-05-17 16:06 | XMS_ITS | Encounter Summary ---
Author Organization [facility] Address [address] [place] [address] Care Team Providers Care Recreational Vehicle Repairer Name Role Phone Miscellaneous, Not In File Primary Care Provider Unavailable No, Physician Primary Care Provider [phone] Maxine Payne MD Primary Care Provider [phone] Emiliano Wan MD Primary Care Provider [phone] Encounter Details Date Type Department Care Team (Latest Contact Info) Description 07/08/2020 Ophth Exam Ophthalmology Fang Nunez MD PhD [address] [facility] [address] [place] [address] Social History Tobacco Use Types Packs/Day Years Used Date Smoking Tobacco: Every Day Cigarettes Comments No Sex and Gender Information Value Date Recorded Sex Assigned at Not on file 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 Gender Identity Not on file Sexual Orientation Not on file documented as of this encounter Plan of Treatment Not on file documented as of this encounter Visit Diagnoses Not on filedocumented in this encounter Eye Exam Visual Acuity (Snellen - Linear) Right eye Left eye Near cc 20/30 PH 20/25-2 20/60 PH 20/30 Correction: Glasses Tonometry (Tonopen, 2:53 PM) Right eye Left eye Pressure 22 23 Pupils Dark Light Shape React APD Right eye 2 1 Round Brisk None Left eye 2 1 Round Brisk None Visual Sandoval Right eye Left eye Full Full Extraocular Movement Right eye Left eye Full Full No associated pain Neuro/Psych Oriented x3: Yes Mood/Affect: Normal Dilation Both eyes: 1% Tropicamide, 2 .5% Phenylephrine Color Right eye Left eye Ishihara 01/22 01/22 guard captain desaturation test with OD 70% brightness relative to OS 100% CN V Patient reports at baseline she has decreased sensation on the left side of her face and this is unchanged on testing today. External Exam Right eye Left eye External Normal Normal Slit Lamp Exam Right eye Left eye Lids/Lashes Normal Normal Conjunctiva/Sclera White and quiet White and albert et Cornea Clear Clear Anterior Chamber Deep and quiet Deep and quiet Iris Round and reactive Round and gerson ctive Lens PCIOL and prior YAG PCIOL and pr ior YAG Vitreous Normal Normal Fundus Exam Right eye Left eye Disc Normal with crisp ma rgins, no pallor or heme Normal with crisp margins, no pallor or heme C/D Ratio 0.2 0.2 Macula Normal flat attached Normal flat attached Vessels Normal c/c Normal c/c Periphery Normal without lesio ns, tears or detachments Normal without lesions, tears or detachments Care Teams Recreational Vehicle Repairer Relationship Specialty Start Date End Date Miscellaneous, Not In File PCP - General 07/14/2012/05 No, Physician PCP - General 12/06/22 01/15/23 Maxine Payne MD [address] [place] [id number] PCP - General Family Medicine 01/16/23 09/04/23 Emiliano Wan MD [address] [id number] PCP - General Internal Medicine 09/05/23 documented as of this encounter
--- OUTSIDE RECORDS SUMMARY | 2024-05-17 16:06 | XMS_ITS | Clinical Summary ---
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 Gender Identity Not on file Sexual Orientation Not on file Plan of Treatment Health Maintenance Due Date Last Done Comments DTAP/TDAP/TD VACCINES (1 - Tdap) 1997 HEPATITIS B VACCINES (1 of 3 - 19+ 3-dose series) 1997 HPV/Cotest (21-29) 06/20/1999 PAP SMEAR 06/20/1999 CERVICAL CANCER SCREENING 2008 HPV/Cotest (30-65) 2008 PAP SMEAR 2008 BREAST CANCER SCREENING 2018 COLORECTAL SCREENING 06/20/2023 Colorectal Cancer Screening 06/20/2023 FIT-DNA Q 3 years 06/20/2023 FIT/FOBT Q 1 year 06/20/2023 Flex Sig/CT Colonography Q 5 years 06/20/2023 INFLUENZA VACCINE (#1) 2023 HPV VACCINES Aged Out No longer eligi ble based on patient's age to complete this topic Insurance [employer] BLUE ACCESS/TRUE BLUE PPO Care Teams Net Trainer Relationship Specialty Start Date End Date Philippe Sanches DO PCP - General 02/14/08
--- OUTSIDE RECORDS SUMMARY | 2024-05-17 16:06 | XMS_ITS | Patient Health Record ---
Author Organization [facility] Address [address] [place] [id number] Care Team Providers Care Site Leasing Agent Name Role Phone Amy Beltrán Unavailable [phone] Non [facility] Provider, Provider Unavailable Unavailable Reason For Referral No Information Plan Of Treatment No Information
--- OUTSIDE RECORDS SUMMARY | 2024-05-17 16:06 | XMS_ITS | Clinical Summary ---
Author Organization [facility] Address [address] [place] [address] Phone Care Team Providers Care Manager Erp Name Role Phone Emiliano Wan MD Primary Care Provider [phone] Allergies Active Allergy Reactions Criticality Noted Date Comments Gabapentin Other (see Comments) 03/22/2023 Suicidal ideations Methocarbamol Other (see Comments) 07/26/2021 Pt states that she went white and couldn't breath Medications DULoxetine (CYMBALTA) [address] Particles Take 60 mg by mouth 2 times daily. Active cyclobenzaprine (FLEXERIL) 10 MG Tablet Take 10 mg by mouth 3 times daily as needed for Muscle spasms. Active pantoprazole (PROTONIX) 40 MG Tablet Delayed Response Take 40 mg by mouth daily. Active cyanocobalamin (VITAMIN B-12) 1000 MCG/ML Solution 1 mL by Intramuscular route every 30 days. 3 Active ondansetron (ZOFRAN-ODT) 4 MG TABLET DISPERSIBLE Take 1 Tablet by mouth every 8 hours as needed for Nausea - 1st line. 10 Tablet 4 Active neomycin-polymy deb-hydrocortis one (CORTISPORIN) 3.5-79533-[address] 3 Drops in right ear 4 times daily. 10 mL 4 Active oxyCODONE 10 MG Tablet Take 10 mg by mouth every 6 hours as needed. 4 Active meclizine (ANTIVERT) 12.5 MG Tablet Take 12.5 mg by mouth every 8 hours as needed for Dizziness. Active polyethylene glycol (GLYCOLAX, MIRALAX) 17 g PackIndications :Constipation Take 1 Packet by mouth 2 times daily as needed for Constipation - 1st line. Dissolve in 4-8 oz of liquid. Indications: Constipation 90 Packet Active senna (SENOKOT) 8.6 MG Tablet Take 1 Tablet by mouth 2 times daily as needed for Constipation - 2nd line. 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 Depression 03/23/2023 Anxiety 03/23/2023 Bipolar 1 disorder 03/23/2023 Drug induced constipation 03/23/2023 Morbid obesity 03/23/2023 Resolved Problems Problem Noted Date Diagnosed Date Resolved Date Bowel obstruction 03/23/2023 03/28/2023 Bowel obstruction 03/22/2023 03/28/2023 Family History Medical History Relation Name Comments Irwy-Zggzkuoso-Eedbs Syndrome Brother Hypertension Father Cancer Maternal Grandfather Cancer Maternal Grandmother Breast Cancer Mother Cancer Paternal Grandfather Diabetes Paternal Grandfather Cancer Paternal Grandmother Diabetes Paternal Grandmother Relation Name Status Comments Brother Alive Father Alive Maternal Grandfather Maternal Grandmother Mother Paternal Grandfather Paternal Grandmother Social History Tobacco Use Types Packs/Day Years Used Date Smoking Tobacco: Former Cigarettes 1 29.7 0 03/1993 - 11/11/2022 Smokeless Tobacco: Never Alcohol Use Standard Drinks/Week Comments Not Currently 0 (1 standard drink = 0.6 oz pur e alcohol) [facility] Utilities Answer Date Recorded In the past 12 months has e electric, gas, oil, or water company threatened to shut off services in your home? Patient declined 09/20/2023 Social Connection and Isolation Panel [NHANES] A nswer Date Recorded In a typical week, how many times do you talk on the phone with family, friends, or neighbors? Patient declined 09/19/2023 How often do you get togethe r with friends or relatives? Patient declined 09/19/2023 How often do you attend scientologist or mandaen serv ices? Patient declined 09/19/2023 Do you belong to any clubs o r organizations such as scientologist groups, unions, fraternal or athletic groups, or school groups? Patient declined 09/19/2023 How often do you attend meet ings of the clubs or organizations you belong to? Patient declined 09/19/2023 Are you , , di vorced, , never , or living with a partner? 09/19/2023 AUDIT-C Answer Date Recorded Q1: How often do you have a drink containing alcohol? Patient declined 09/19/2023 Q2: How many drinks containi ng alcohol do you have on a typical day when you are drinking? Patient does not drink Q3: How often do you have si x or more drinks on one occasion? Patient declined 09/19/2023 Overall Financial Resource Strain (CARDIA) Answe r Date Recorded How hard is it for you to pa y for the very basics like food, housing, medical care, and heating? Not hard at all 09/19/2023 [facility] - Occupational Stress Questionnaire Answer Date Recorded Do you feel stress - tense, restless, nervous, or anxious, or unable to sleep at night because your mind is troubled all the time - these days? Patient declined 09/19/2023 Exercise Vital Sign Answer Date Recorde d On average, how many days pe r week do you engage in moderate to strenuous exercise (like a brisk walk)? Patient declined On average, how many minutes do you engage in exercise at this level? Patient declined 09/19/2023 Hunger Vital Sign Answer Date Recorded Within the past 12 months, y ou worried that your food would run out before you got the money to buy more. Patient declined Within the past 12 months, t he food you bought just didn't last and you didn't have money to get more. Patient declined 10/2023 PRAPARE - Transportation Answer Date Re corded In the past 12 months, has l ack of transportation kept you from medical appointments or from getting medications? Patient declined 09/20/2023 In the past 12 months, has l ack of transportation kept you from meetings, work, or from getting things needed for daily living? Patient declined 09/20/2023 Housing Stability Vital Sign Answer David e Recorded In the last 12 months, was t here a time when you were not able to pay the mortgage or rent on time? No 03/23/2023 In the last 12 months, how many places have you lived? 1 03/23/2023 In the last 12 months, was t here a time when you did not have a steady place to sleep or slept in a custodial (including now)? No 03/23/2023 Housing Stability Vital Sign Answer David e Recorded In the last 12 months, was t here a time when you were not able to pay the mortgage or rent on time? Patient declined 09/20/19 24 In the past 12 months, how m any times have you moved where you were living? 1 09/20/2023 At any time in the past 12 m [facility], were you homeless or living in a custodial (including now)? Patient declined 09/20/2023 Sexually Active Control Partners Comments Yes Male Comments No Sex and Gender Information Value Date Recorded Sex Assigned at Not on file Legal Sex Female 9:46 PM CDT Gender Identity Not on file Sexual Orientation Not on file Last Filed Vital Signs Vital Sign Reading Time Taken Comments Blood Pressure 121/66 01/06/2024 9:30 PM BREADING MACHINE TENDER Pulse 97 01/06/2024 9:30 PM BREADING MACHINE TENDER Temperature 35.9 C (96.6 F) 01/06/2024 6:37 PM BREADING MACHINE TENDER Respiratory Rate 18 01/06/2024 6:37 PM BREADING MACHINE TENDER Oxygen Saturation 98% 01/06/2024 9:30 PM BREADING MACHINE TENDER Inhaled Oxygen Concentration - - Weight 113.4 kg (250 lb) 01/06/2024 6:37 PM BREADING MACHINE TENDER Height 157.5 cm (5' 2 ) 01/06/2024 6:37 PM BREADING MACHINE TENDER Body Mass Index 45.73 01/06/2024 6:37 PM BREADING MACHINE TENDER Plan of Treatment Health Maintenance Due Date Last Done Comments Hepatitis C Virus (HCV) Screening 1978 Mammogram 1978 TdaP Immunization 1978 Hepatitis B Immunization (1 of 3 - 19+ 3-dose series) 1997 Pneumococcal Immunization Co mbined (1 of 2 - PCV) 1997 Discussion re Starting/Frequ ency of Mammograms 2018 Colonoscopy 06/20/2023 Colorectal Cancer Screening 06/20/2023 SARS-COV-2 Immunization (1 - 2023- season) 2023 Influenza Immunization (Seas on Ended) 2024 Respiratory Syncytial Virus (RSV) Immunization (Adult) (1 - 1-dose 75+ series) 2053 Meningococcal Immunization (ACWY) Aged Out No longer eligible based on patient's age to complete this topic Rotavirus Immunization Aged Out No lo nger eligible based on patient's age to complete this topic Insurance MEDICAID [employer] BET[employer] Advance Directives * Full Code (Latest Code Status on File) Date Activated Date Inactivated Comments 09/19/2023 4:49 AM CPR-Full Treatm ent: FULL ARREST: Attempt Resuscitation/CPR wit intubation and mechanical ventilation. PRE-ARREST: Use entire range of life support measures to stabilize the patient. * Full Code Date Activated Date Inactivated Comments 03/23/2023 1:46 AM 03/28/2023 2:59 PM CPR-Full Casey atment: FULL ARREST: Attempt Resuscitation/CPR wit intubation and mechanical ventilation. PRE-ARREST: Use entire range of life support measures to stabilize the patient. Care Teams Manager Erp Relationship Specialty Start Date End Date Emiliano Wan MD [address], [address] [place] [address] PCP - General Infectious Disease 01/06/24
--- OUTSIDE RECORDS SUMMARY | 2024-05-17 16:07 | XMS_ITS | Encounter Summary ---
Author Organization [facility] Address [address] [address] Care Team Providers Care Railroad Baggage Porter Name Role Phone Maxine Payne Primary Care Provider [phone] Reason for Visit * Reason Onset Date Comments Wound Care 05/09/2023 Encounter Details Date Type Department Care Team (Late st Contact Info) Description 05/09/2023 Telephone [facility] [address] [place] [phone] Leonel Velasquez MD [address] [place] [address] [place] [address] Wound Care Social History Tobacco Use Types Packs/Day Years Used Date Smoking Tobacco: Former Cigarettes Q uit: 11/11/2022 Alcohol Use Standard Drinks/Week Comments Never 0 (1 standard drink = 0.6 oz pur e alcohol) AUDIT-C Answer Date Recorded Q1: How often do you have a drink containing alcohol? Never 04/19/2023 Q2: How many drinks containi ng alcohol do you have on a typical day when you are drinking? Patient does not drink Q3: How often do you have si x or more drinks on one occasion? Never 04/19/2023 Overall Financial Resource Strain (CARDIA) Answe r Date Recorded How hard is it for you to pa y for the very basics like food, housing, medical care, and heating? Not hard at all 04/19/2023 [facility] [place] - Occupational Stress Questionnaire Answer Date Recorded Do you feel stress - tense, restless, nervous, or anxious, or unable to sleep at night because your mind is troubled all the time - these days? Not at all 04/19/2023 Hunger Vital Sign Answer Date Recorded Within the past 12 months, y ou worried that your food would run out before you got the money to buy more. Never true 04/19/19 24 Within the past 12 months, t he food you bought just didn't last and you didn't have money to get more. Never true 04/19/2023 PRAPARE - Transportation Answer Date Re corded In the past 12 months, has l ack of transportation kept you from medical appointments or from getting medications? No 09/2023 In the past 12 months, has l ack of transportation kept you from meetings, work, or from getting things needed for daily living? No 04/19/2023 Housing Stability Vital Sign Answer David e Recorded In the last 12 months, was t here a time when you were not able to pay the mortgage or rent on time? No 04/19/2023 In the last 12 months, how many places have you lived? 1 04/19/2023 In the last 12 months, was t here a time when you did not have a steady place to sleep or slept in a detention (including now)? No 04/19/2023 Sex and Gender Information Value Date Recorded Sex Assigned at Not on file Gender Identity Not on file Sexual Orientation Not on file documented as of this encounter Functional Status Functional Status Response Date of Assess ment Is person deaf or have serious hearing difficult y? No 04/19/2023 Is person blind or have serious difficulty seein g? No 04/19/2023 Does person have serious dif ficulty walking/climbing stairs? No 04/19/2023 Does person have difficulty dressing/bathing? No 04/19/2023 Does person have difficulty doing errands alone? No 04/19/2023 Cognitive Status Response Date of Assessm ent Does person have difficulty concentrating/remembering/making decisions? No 04/19/2023 documented as of this encounter Miscellaneous Notes * Telephone Encounter - Lara Adan - 05/09/2023 2:12 PM CDT Patient called to inquire about her current wound care. Patient uploaded images to her chart regarding her wound and would like to speak with a nurse. Lara Adan 05/09/2023 2:13 PM documented in this encounter Plan of Treatment Not on file documented as of this encounter Visit Diagnoses Not on filedocumented in this encounter Care Teams Railroad Baggage Porter Relationship Specialty Start Date End Date Maxine Payne [address] [place] [id number] PCP - General 04/09/23 documented as of this encounter
--- OUTSIDE RECORDS SUMMARY | 2024-05-17 16:07 | XMS_ITS | Referral Summary ---
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 Answered PHQ-2 Answer Date Recorded PHQ-2 Total Score 6 09/05/2023 PHQ-9 Answer Date Recorded PHQ-9 Total Score 21 09/05/2023 Comments No Sex and Gender Information Value Date Recorded Sex Assigned at Not on file Legal Sex Female 1:46 AM SEM MANAGER Gender Identity Not on file Sexual Orientation Not on file Last Filed Vital Signs Vital Sign Reading Time Taken Comments Blood Pressure 134/82 05/05/2024 11:11 AM CDT Pulse 103 05/05/2024 11:11 AM CDT Temperature 36.6 C (97.8 F) 12/02/2023 2:34 PM CDT Respiratory Rate 20 12/02/2023 2:34 PM CDT Oxygen Saturation 96% 05/05/2024 11: 11 AM CDT Inhaled Oxygen Concentration - - Weight 121.5 kg (267 lb 12.8 oz) 2024 11:11 AM CDT Height 157.5 cm (5' 2.01 ) 05/05/2024 1 1:11 AM CDT Body Mass Index 48.97 05/05/2024 11:11 AM CDT Plan of Treatment Not on file Procedures Procedure Name Priority Date/Time Associated Diagnosis Comments EMG/NCV Routine 03/16/2024 11:06 AM SEM MANAGER MS (multiple sclerosis) (HCC) MRI BRAIN W WO CONTRAST Schedule RAJESH, Read Routine (Patient lives out of area) 03/06/2024 3:21 PM SEM MANAGER MS (multiple sclerosis) (HCC) MRI CERVICAL SPINE W WO CONTRAST Schedule RAJESH, Read Routine (Patient lives out of area) 03/06/2024 2:56 PM SEM MANAGER MS (multiple sclerosis) (HCC) from Last 3 Months Results * EMG/NCV - (03/16/2024 11:06 AM SEM MANAGER) Anatomical Region Laterality Modality EMG Impressions 03/16/2024 11:06 AM SEM MANAGER History: This is a 43 years old patient being evaluated for tingling and numbness of extremities. Nerve conduction secondary: Bilateral radial antidromic sensory nerve conduction studies showed normal SNAP peak latencies, normal amplitudes and normal sensory nerve conduction velocities. Bilateral median and bilateral ulnar orthodromic sensory nerve conduction studies showed normal SNAP peak latencies, normal amplitudes and normal sensory nerve conduction velocities. Bilateral median and bilateral ulnar motor nerve conduction studies showed normal DMLs, normal CMAP amplitudes, normal motor nerve conduction velocities and normal F wave latencies. Bilateral sural and bilateral superficial peroneal antidromic sensory nerve conduction studies showed normal SNAP peak latencies, normal amplitudes and normal sensory nerve conduction velocities. Bilateral tibial and bilateral peroneal motor nerve conduction studies showed normal DMLs, normal CMAP amplitudes, normal motor nerve conduction velocities and normal F wave latencies. EMG studies: The concentric needle electrode examination was performed on bilateral FDI, APB, flexor carpi radialis, biceps and deltoids, as well as bilateral tibialis anterior, gastrocnemius medialis, peroneus longus, vastus medialis and extensor digitorum brevis. There was no evidence of acute or chronic denervation or reinnervation. The interference pattern is full in all muscle tested. Impression: This is a normal study. There was no electrophysiologic evidence suggestive of significant large fiber neuropathy of bilateral upper and and bilateral lower extremities. The needle EMG studies of bilateral upper and bilateral lower extremities did not show any ongoing denervation. The clinical correlation is recommended. us Cristobal Mckinney MD NEUROLOGY ORDERABLES Fi nal Result * MRI Brain W WO Contrast (03/06/2024 3:21 PM SEM MANAGER) Anatomical Region Laterality Modality Head and Neck N/A Magnetic Resonan ce 03/06/2024 3:24 PM SEM MANAGER Narrative 03/06/2024 3:43 PM SEM MANAGER EXAM DESCRIPTION: MRI BRAIN WITHOUT AND WITH CONTRAST; MRI CERVICAL SPINE WITHOUT AND WITH CONTRAST REASON FOR STUDY: Chronic constellation of symptoms to include headaches, dizziness, unspecified laterality and field deficits partial blindness, nausea, vomiting, uncoordination, imbalance, and neck pain with limited range of motion since 2011. No provided history of trauma or inciting and/or aggravating events. No provided past medical history other than history of bacterial meningitis x2 of unspecified dates (recently?). No provided surgical history. TECHNIQUE: MRI BRAIN: Multiplanar imaging includes noncontrast T1, T2, FLAIR, diffusion with ADC map and post contrast T1 sequences. Additional sequence(s) sensitive to blood products. MRI CERVICAL SPINE: Sagittal and axial imaging of the cervical spine includes T1, T2, STIR and gradient echo sequences. Post contrast T1-weighted images. Patient motion artifact variably spanning multiple sequences compromises evaluation Images saved to PACS. CONTRAST TYPE/DOSE: 20 mL Dotarem injected via peripheral IV site without reported incident. COMPARISON: MRI brain without and with contrast 11/17/2022; CT head without contrast 03/21/2022 and 07/07/2020. FINDINGS: MRI BRAIN: CEREBRUM: No acute intra-axial hemorrhage. No edema, mass effect, midline shift, or herniation. No abnormal enhancement. WHITE MATTER: Normal. POSTERIOR FOSSA: Brainstem and cerebellum are unremarkable as visualized. No abnormal enhancement. DIFFUSION IMAGING: No restricted diffusion to suggest acute/subacute ischemia or infarct. EXTRAAXIAL SPACES: No extra-axial fluid collection or new extra-axial mass of the visualized intracranial contents. Stable appearance of enhancing sheet like dural thickening overlying the left operculum as can be seen en plaque meningioma as well as with sequelae of prior meningitis. BRAIN VOLUME: Within normal limits for age. PITUITARY: Unremarkable. VASCULATURE: No flow disturbance evident. CALVARIUM: Unremarkable. ORBITS: No acute abnormality. Ocular lenses and globes normal in conformation and position. PARANASAL SINUSES AND MASTOIDS: Aplastic frontal sinuses. No significant mucosal thickening no fluid levels of the paranasal sinuses. Redemonstration of scattered opacification about the bilateral mastoid air cells. OTHER: No other significant finding. MRI CERVICAL SPINE: ALIGNMENT: Normal. VERTEBRAE: No MR evidence of acute-subacute fracture. Vertebral body heights maintained. Mild spondylosis. Marrow signal within normal limits. DISCS: Multilevel variable intervertebral disc desiccation and loss of intervertebral disc height of the visualized cervicothoracic spine. HARDWARE: None in the cervical spine. CORD: Normal in size, and, within the limitations of the patient motion artifact, grossly normal in signal intensity. No abnormal enhancement. INDIVIDUAL DISC LEVELS: C1-C2: No spinal canal stenosis. C2-C3: No diffuse disc bulge or focal herniation. No spinal canal stenosis. No neural foraminal stenosis. C3-C4: Small shallow right subarticular-foraminal junctional disc protrusion slightly indenting the right eccentric ventral thecal sac. Bilateral hypertrophic facet arthropathy. No spinal canal stenosis. No significant neural foraminal stenosis. C4-C5: No diffuse disc bulge or focal herniation. Bilateral hypertrophic facet arthropathy. Bilateral uncovertebral joint disease. No spinal canal stenosis. No neural foraminal stenosis. C5-C6: Posterior disc osteophyte complex indenting the ventral thecal sac. Bilateral hypertrophic facet arthropathy. Bilateral uncovertebral joint disease. No spinal canal stenosis no neural foraminal stenosis. C6-C7: No diffuse disc bulge or focal herniation. Bilateral facet arthropathy. Bilateral uncovertebral joint disease. No spinal canal stenosis no neural foraminal stenosis C7-T1: No diffuse disc bulge or focal herniation. Bilateral facet arthropathy. No spinal canal stenosis. No neural foraminal stenosis. UPPER THORACIC: Incompletely imaged. No significant spinal stenosis or foraminal stenosis. OTHER: No other significant finding. IMPRESSION: 1. No acute intracranial process with chronic findings as above. 2. Mild spondylosis and degenerative disc disease of the cervical spine as detailed level by level above without spinal canal stenosis or neural foraminal stenosis THIS IS AN ELECTRONICALLY VERIFIED FINAL REPORT 03/06/2024 3:43 PM - Electronically signed by Sam Antunez M.D. MATTI: MATTI Report ID: [id number] Reading Location: [place] [id number] Procedure Note Sam Antunez MD - 03/06/2024 EXAM DESCRIPTION: MRI BRAIN WITHOUT AND WITH CONTRAST; MRI CERVICALSPINE WITHOUT AND WITH CONTRAST REASON FOR STUDY: Chronic constellation of symptoms to include headaches, dizziness, unspecified laterality and field deficits partial blindness, nausea, vomiting, uncoordination, imbalance, and neck pain with limitedrange of motion since 2011. No provided history of trauma or inciting and/or aggravating events. No provided past medical history other than historyof bacterial meningitis x2 of unspecified dates (recently?). No provided surgical history. TECHNIQUE: MRI BRAIN: Multiplanar imaging includes noncontrast T1, T2,FLAIR, diffusion with ADC map and post contrast T1 sequences. Additionalsequence(s) sensitive to blood products. MRI CERVICAL SPINE: Sagittal and axial imaging of the cervical spineincludes T1, T2, STIR and gradient echo sequences. Post contrast T1-weightedimages. Patient motion artifact variably spanning multiple sequences compromises evaluation Images saved to PACS. CONTRAST TYPE/DOSE: 20 mL Dotarem injected via peripheral IV sitewithout reported incident. COMPARISON: MRI brain without and with contrast 11/17/2022; CT headwithout contrast 03/21/2022 and 07/07/2020. FINDINGS: MRI BRAIN: CEREBRUM: No acute intra-axial hemorrhage. No edema, mass effect,midline shift, or herniation. No abnormal enhancement. WHITE MATTER: Normal. POSTERIOR FOSSA: Brainstem and cerebellum are unremarkable as visualized.No abnormal enhancement. DIFFUSION IMAGING: No restricted diffusion to suggest acute/subacute ischemia or infarct. EXTRAAXIAL SPACES: No extra-axial fluid collection or new extra-axialmass of the visualized intracranial contents. Stable appearance of enhancingsheet like dural thickening overlying the left operculum as can be seen enplaque meningioma as well as with sequelae of prior meningitis. BRAIN VOLUME: Within normal limits for age. PITUITARY: Unremarkable. VASCULATURE: No flow disturbance evident. CALVARIUM: Unremarkable. ORBITS: No acute abnormality. Ocular lenses and globes normal in conformation and position. PARANASAL SINUSES AND MASTOIDS: Aplastic frontal sinuses. No significant mucosal thickening no fluid levels of the paranasal sinuses.Redemonstration of scattered opacification about the bilateral mastoid air cells. OTHER: No other significant finding. MRI CERVICAL SPINE: ALIGNMENT: Normal. VERTEBRAE: No MR evidence of acute-subacute fracture. Vertebral bodyheights maintained. Mild spondylosis. Marrow signal within normal limits. DISCS: Multilevel variable intervertebral disc desiccation and loss of intervertebral disc height of the visualized cervicothoracic spine. HARDWARE: None in the cervical spine. CORD: Normal in size, and, within the limitations of the patient motion artifact, grossly normal in signal intensity. No abnormal enhancement. INDIVIDUAL DISC LEVELS: C1-C2: No spinal canal stenosis. C2-C3: No diffuse disc bulge or focal herniation. No spinal canalstenosis. No neural foraminal stenosis. C3-C4: Small shallow right subarticular-foraminal junctional discprotrusion slightly indenting the right eccentric ventral thecal sac. Bilateral hypertrophic facet arthropathy. No spinal canal stenosis. No significant neural foraminal stenosis. C4-C5: No diffuse disc bulge or focal herniation. Bilateralhypertrophic facet arthropathy. Bilateral uncovertebral joint disease. No spinalcanal stenosis. No neural foraminal stenosis. C5-C6: Posterior disc osteophyte complex indenting the ventral thecalsac. Bilateral hypertrophic facet arthropathy. Bilateral uncovertebral joint disease. No spinal canal stenosis no neural foraminal stenosis. C6-C7: No diffuse disc bulge or focal herniation. Bilateral facet arthropathy. Bilateral uncovertebral joint disease. No spinal canalstenosis no neural foraminal stenosis C7-T1: No diffuse disc bulge or focal herniation. Bilateral facet arthropathy. No spinal canal stenosis. No neural foraminal stenosis. UPPER THORACIC: Incompletely imaged. No significant spinal stenosis or foraminal stenosis. OTHER: No other significant finding. IMPRESSION: 1. No acute intracranial process with chronic findings as above. 2. Mild spondylosis and degenerative disc disease of the cervical spineas detailed level by level above without spinal canal stenosis or neural foraminal stenosis THIS IS AN ELECTRONICALLY VERIFIED FINAL REPORT 03/06/2024 3:43 PM - Electronically signed by Sam Antunez M.D. MATTI: MATTI Report ID: [id number] Reading Location: [place] [address] Cristobal Mckinney MD IMG MRI PROCEDURES Gabriella l Result * MRI Cervical Spine W WO Contrast (03/06/2024 2:56 PM SEM MANAGER) Anatomical Region Laterality Modality Spine N/A Magnetic Resonan ce 03/06/2024 3:24 PM SEM MANAGER Narrative 03/06/2024 3:43 PM SEM MANAGER EXAM DESCRIPTION: MRI BRAIN WITHOUT AND WITH CONTRAST; MRI CERVICAL SPINE WITHOUT AND WITH CONTRAST REASON FOR STUDY: Chronic constellation of symptoms to include headaches, dizziness, unspecified laterality and field deficits partial blindness, nausea, vomiting, uncoordination, imbalance, and neck pain with limited range of motion since 2011. No provided history of trauma or inciting and/or aggravating events. No provided past medical history other than history of bacterial meningitis x2 of unspecified dates (recently?). No provided surgical history. TECHNIQUE: MRI BRAIN: Multiplanar imaging includes noncontrast T1, T2, FLAIR, diffusion with ADC map and post contrast T1 sequences. Additional sequence(s) sensitive to blood products. MRI CERVICAL SPINE: Sagittal and axial imaging of the cervical spine includes T1, T2, STIR and gradient echo sequences. Post contrast T1-weighted images. Patient motion artifact variably spanning multiple sequences compromises evaluation Images saved to PACS. CONTRAST TYPE/DOSE: 20 mL Dotarem injected via peripheral IV site without reported incident. COMPARISON: MRI brain without and with contrast 11/17/2022; CT head without contrast 03/21/2022 and 07/07/2020. FINDINGS: MRI BRAIN: CEREBRUM: No acute intra-axial hemorrhage. No edema, mass effect, midline shift, or herniation. No abnormal enhancement. WHITE MATTER: Normal. POSTERIOR FOSSA: Brainstem and cerebellum are unremarkable as visualized. No abnormal enhancement. DIFFUSION IMAGING: No restricted diffusion to suggest acute/subacute ischemia or infarct. EXTRAAXIAL SPACES: No extra-axial fluid collection or new extra-axial mass of the visualized intracranial contents. Stable appearance of enhancing sheet like dural thickening overlying the left operculum as can be seen en plaque meningioma as well as with sequelae of prior meningitis. BRAIN VOLUME: Within normal limits for age. PITUITARY: Unremarkable. VASCULATURE: No flow disturbance evident. CALVARIUM: Unremarkable. ORBITS: No acute abnormality. Ocular lenses and globes normal in conformation and position. PARANASAL SINUSES AND MASTOIDS: Aplastic frontal sinuses. No significant mucosal thickening no fluid levels of the paranasal sinuses. Redemonstration of scattered opacification about the bilateral mastoid air cells. OTHER: No other significant finding. MRI CERVICAL SPINE: ALIGNMENT: Normal. VERTEBRAE: No MR evidence of acute-subacute fracture. Vertebral body heights maintained. Mild spondylosis. Marrow signal within normal limits. DISCS: Multilevel variable intervertebral disc desiccation and loss of intervertebral disc height of the visualized cervicothoracic spine. HARDWARE: None in the cervical spine. CORD: Normal in size, and, within the limitations of the patient motion artifact, grossly normal in signal intensity. No abnormal enhancement. INDIVIDUAL DISC LEVELS: C1-C2: No spinal canal stenosis. C2-C3: No diffuse disc bulge or focal herniation. No spinal canal stenosis. No neural foraminal stenosis. C3-C4: Small shallow right subarticular-foraminal junctional disc protrusion slightly indenting the right eccentric ventral thecal sac. Bilateral hypertrophic facet arthropathy. No spinal canal stenosis. No significant neural foraminal stenosis. C4-C5: No diffuse disc bulge or focal herniation. Bilateral hypertrophic facet arthropathy. Bilateral uncovertebral joint disease. No spinal canal stenosis. No neural foraminal stenosis. C5-C6: Posterior disc osteophyte complex indenting the ventral thecal sac. Bilateral hypertrophic facet arthropathy. Bilateral uncovertebral joint disease. No spinal canal stenosis no neural foraminal stenosis. C6-C7: No diffuse disc bulge or focal herniation. Bilateral facet arthropathy. Bilateral uncovertebral joint disease. No spinal canal stenosis no neural foraminal stenosis C7-T1: No diffuse disc bulge or focal herniation. Bilateral facet arthropathy. No spinal canal stenosis. No neural foraminal stenosis. UPPER THORACIC: Incompletely imaged. No significant spinal stenosis or foraminal stenosis. OTHER: No other significant finding. IMPRESSION: 1. No acute intracranial process with chronic findings as above. 2. Mild spondylosis and degenerative disc disease of the cervical spine as detailed level by level above without spinal canal stenosis or neural foraminal stenosis THIS IS AN ELECTRONICALLY VERIFIED FINAL REPORT 03/06/2024 3:43 PM - Electronically signed by Sam Antunez M.D. MATTI: MATTI Report ID: [id number] Reading Location: [place] [address] Procedure Note Sam Antunez MD - 03/06/2024 EXAM DESCRIPTION: MRI BRAIN WITHOUT AND WITH CONTRAST; MRI CERVICALSPINE WITHOUT AND WITH CONTRAST REASON FOR STUDY: Chronic constellation of symptoms to include headaches, dizziness, unspecified laterality and field deficits partial blindness, nausea, vomiting, uncoordination, imbalance, and neck pain with limitedrange of motion since 2011. No provided history of trauma or inciting and/or aggravating events. No provided past medical history other than historyof bacterial meningitis x2 of unspecified dates (recently?). No provided surgical history. TECHNIQUE: MRI BRAIN: Multiplanar imaging includes noncontrast T1, T2,FLAIR, diffusion with ADC map and post contrast T1 sequences. Additionalsequence(s) sensitive to blood products. MRI CERVICAL SPINE: Sagittal and axial imaging of the cervical spineincludes T1, T2, STIR and gradient echo sequences. Post contrast T1-weightedimages. Patient motion artifact variably spanning multiple sequences compromises evaluation Images saved to PACS. CONTRAST TYPE/DOSE: 20 mL Dotarem injected via peripheral IV sitewithout reported incident. COMPARISON: MRI brain without and with contrast 11/17/2022; CT headwithout contrast 03/21/2022 and 07/07/2020. FINDINGS: MRI BRAIN: CEREBRUM: No acute intra-axial hemorrhage. No edema, mass effect,midline shift, or herniation. No abnormal enhancement. WHITE MATTER: Normal. POSTERIOR FOSSA: Brainstem and cerebellum are unremarkable as visualized.No abnormal enhancement. DIFFUSION IMAGING: No restricted diffusion to suggest acute/subacute ischemia or infarct. EXTRAAXIAL SPACES: No extra-axial fluid collection or new extra-axialmass of the visualized intracranial contents. Stable appearance of enhancingsheet like dural thickening overlying the left operculum as can be seen enplaque meningioma as well as with sequelae of prior meningitis. BRAIN VOLUME: Within normal limits for age. PITUITARY: Unremarkable. VASCULATURE: No flow disturbance evident. CALVARIUM: Unremarkable. ORBITS: No acute abnormality. Ocular lenses and globes normal in conformation and position. PARANASAL SINUSES AND MASTOIDS: Aplastic frontal sinuses. No significant mucosal thickening no fluid levels of the paranasal sinuses.Redemonstration of scattered opacification about the bilateral mastoid air cells. OTHER: No other significant finding. MRI CERVICAL SPINE: ALIGNMENT: Normal. VERTEBRAE: No MR evidence of acute-subacute fracture. Vertebral bodyheights maintained. Mild spondylosis. Marrow signal within normal limits. DISCS: Multilevel variable intervertebral disc desiccation and loss of intervertebral disc height of the visualized cervicothoracic spine. HARDWARE: None in the cervical spine. CORD: Normal in size, and, within the limitations of the patient motion artifact, grossly normal in signal intensity. No abnormal enhancement. INDIVIDUAL DISC LEVELS: C1-C2: No spinal canal stenosis. C2-C3: No diffuse disc bulge or focal herniation. No spinal canalstenosis. No neural foraminal stenosis. C3-C4: Small shallow right subarticular-foraminal junctional discprotrusion slightly indenting the right eccentric ventral thecal sac. Bilateral hypertrophic facet arthropathy. No spinal canal stenosis. No significant neural foraminal stenosis. C4-C5: No diffuse disc bulge or focal herniation. Bilateralhypertrophic facet arthropathy. Bilateral uncovertebral joint disease. No spinalcanal stenosis. No neural foraminal stenosis. C5-C6: Posterior disc osteophyte complex indenting the ventral thecalsac. Bilateral hypertrophic facet arthropathy. Bilateral uncovertebral joint disease. No spinal canal stenosis no neural foraminal stenosis. C6-C7: No diffuse disc bulge or focal herniation. Bilateral facet arthropathy. Bilateral uncovertebral joint disease. No spinal canalstenosis no neural foraminal stenosis C7-T1: No diffuse disc bulge or focal herniation. Bilateral facet arthropathy. No spinal canal stenosis. No neural foraminal stenosis. UPPER THORACIC: Incompletely imaged. No significant spinal stenosis or foraminal stenosis. OTHER: No other significant finding. IMPRESSION: 1. No acute intracranial process with chronic findings as above. 2. Mild spondylosis and degenerative disc disease of the cervical spineas detailed level by level above without spinal canal stenosis or neural foraminal stenosis THIS IS AN ELECTRONICALLY VERIFIED FINAL REPORT 03/06/2024 3:43 PM - Electronically signed by Sam Antunez M.D. 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
--- OUTSIDE RECORDS SUMMARY | 2024-05-17 16:07 | XMS_ITS | Clinical Summary ---
Author Organization [facility] Address [address] [place] [address] Care Team Providers Care Manager Statistics Name Role Phone Elmer Maxine Primary Care Provider [phone] Source Comments [facility],non-owned Affiliates and Associated Physician Practices is amultiple site organization consisting of ambulatory clinics and hospital sitesin [place] and [place]. This disclosure is being madepursuant to the Care Everywhere program and may not contain all information available regarding this patient. Last updated 17.[facility] Allergies Active Allergy Reactions Criticality Noted Date Comments Gabapentin Psychiatric Medium 04/19/2023 Pt states it made her suicidal Methocarbamol Anaphylaxis,Palpitat ions, Shortness of Breath High 07/06/2020 Pt states that she went white and couldn't breath Unknown Pt states that she went white and couldn't breath Unknown Medications * Be aware that medications may not be up to date on this document. Alwaysverify current medications with the patient. Medication Sig Dispensed Refills Start Date End Date Status DULoxetine (Cymbalta) 60 MG capsuleIndications :Major Depressive Disorder Take 1 (one) capsule by mouth 2 times daily Reasons: Major Depressive Disorder Active pantoprazole EC (Protonix) 40 MG tablet Take 1 (one) tablet by mouth once daily Active cyanocobalamin (Vitamin B-12) injection Inject 1,000 (one thousand) mcg into muscle every 7 days Active oxyCODONE-acetamin ophen (Percocet) 10-325 MG tabletIndications: Abdominal pain, unspecified abdominal location Take 1 (one) tablet by mouth every 6 hours as needed for Pain 10 tablet 05/14/2023 Active oxyCODONE, immediate release, (Roxicodone) 10 MG tabletIndications: Unspecified intestinal obstruction, unspecified as to partial versus complete obstruction (HCC) TAKE ONE TABLET BY MOUTH EVERY 6 HOURS NEEDED 20 tablet 05/03/2023 Active acetaminophen (Tylenol) 325 MG tablet TAKE 3 TABLETS BY MOUTH EVERY 6 HOURS NEEDED FOR FEVER OR PAIN. MAXIMUM ALLOWABLE ACETAMINOPHEN AMOUNT: 4 GRAMS (4,000MG) PER 24 HOURS. 60 tablet 05/03/2023 Active ondansetron, disintegrating, (Zofran ODT) 4 MG tablet DISSOLVE 1 TABLET ON THE TONGUE EVERY 6 HOURS NEEDED FOR NAUSEA/VOMITING 20 tablet 05/03/2023 Active ibuprofen (Motrin) 400 MG tablet TAKE ONE TABLET BY MOUTH EVERY 6 HOURS 60 tablet 05/03/2023 Active cyclobenzaprine (Flexeril) 10 MG tablet TAKE ONE TABLET BY MOUTH 3 TIMES A DAY NEEDED FOR MUSCLE SPASMS 20 tablet 05/03/2023 Active Active Problems Problem Noted Date Diagnosed Date Small bowel obstruction 04/19/2023 Partial small bowel obstruction 04/08/2023 Social History Tobacco Use Types Packs/Day Years Used Date Smoking Tobacco: Former Cigarettes Q uit: 11/11/2022 Tobacco Cessation:Counseling Given: Not Answered Alcohol Use Standard Drinks/Week Comments Never 0 [...] and heating? Not hard at all 04/19/2023 [facility] - Occupational Stress [...] place to sleep or slept in a fci (including now)? No 04/19/2023 Sex and Gender Information Value Date Recorded Sex Assigned at Not on file Gender Identity Not on file Sexual Orientation Not on file Last Filed Vital Signs Vital Sign Reading Time Taken Comments Blood Pressure 162/77 05/14/2023 2:59 PM CDT Patient is having pain Pulse 100 05/14/2023 2:59 PM CDT Temperature 36.5 C (97.7 F) 05/14/2023 2:59 PM CDT Respiratory Rate 20 05/03/2023 4:20 AM CDT Oxygen Saturation 96% 05/14/2023 2:5 9 PM CDT Inhaled Oxygen Concentration 21% 04/26/2023 3:42 AM CDT Weight 113.4 kg (250 lb) 05/14/2023 2:5 9 PM CDT Height 165.1 cm (5' 5 ) 05/14/2023 2:59 PM CDT Body Mass Index 41.6 05/14/2023 2:59 PM CDT Plan of Treatment Health Maintenance Due Date Last Done Comments COLOGUARD (AGES 45-75) - COLON CA SCREENING 1978 COLON MONITORING 1978 COLONOSCOPY - COLON CA SCREENING 1978 CT COLONOGRAPHY - COLON CA SCREENING 1978 Colorectal Cancer Screening 1978 FIT - COLON CA SCREENING 1978 FLEX SIG - COLON CA SCREENING 1978 LIPID TESTING 1978 MAMMOGRAM 1978 PAP SMEAR 1978 HIV SCREENING 1993 HEPATITIS C SCREENING 06/14/1996 DTAP/TDAP/TD VACCINES (1 - Tdap) 1997 HEPATITIS B VACCINE (1 of 3 - 19+ 3-dose series) 1997 COVID-19 VACCINE (1 - season) 2023 DEPRESSION SCREENING 02/12/2024 INFLUENZA VACCINE (Season Ended) 2024 SCREENING FOR DIABETES 05/02/2026 , 05/02/2023, 05/01/2023, Additional history exists ZOSTER VACCINE (1 of 2) 2028 HIB VACCINE Aged Out No longer eligi ble based on patient's age to complete this topic HPV VACCINE Aged Out No longer eligi ble based on patient's age to complete this topic MENINGOCOCCAL (Group B) VACCINE SHARED DECISION-MAKING Aged Out No longer eligible based on patient's age to complete this topic MENINGOCOCCAL GROUPS A/C/Y/W VACCINE Aged Out No longer eligible based on patient's age to complete this topic PNEUMOCOCCAL VACCINE Aged Out No long er eligible based on patient's age to complete this topic Procedures Procedure Name Priority Date/Time Associated Diagnosis Comments BASIC METABOLIC PANEL (CALCIUM TOTAL) Timed 05/03/2023 2:35 AM CDT from Last 3 Months or Most Recently Relevant to Health Maintenance Results * (ABNORMAL) BASIC METABOLIC PANEL (CALCIUM TOTAL) (05/03/2023 2:35 AM CDT) BUN 11 7 - 26 mg/dL 05/03/2023 4:31 AM CDT [facility] Creatinine 0.66 0.56 - 0.96 mg/dL 05/03/2023 4:31 AM CDT [facility] Sodium 138 136 - 145 mmol/L 05/03/2023 4:31 AM T [facility] Potassium 3.0(L) 3.5 - 4.5 mmol/L 05/03/2023 4:31 AM [facility] Chloride 103 98 - 107 mmol/L 05/03/2023 4:31 AM [facility] CO2 23 22 - 29 mmol/L 05/03/2023 4:31 AM [facility] Glucose 96 70 - 115 mg/dL 05/03/2023 4:31 AM [facility] Calcium 8.9 8.4 - 10.2 mg/dL 05/03/2023 4:31 AM [facility] Anion Gap 12 6 - 16 05/03/2023 4:31 AM [facility] BUN/Creatinine Ratio 17 7 - 23 05/03/2023 4:31 AM [facility] Osmolality Calculated 285 275 - 295 mOsm/kg 05/03/2023 4:31 AM [facility] eGFR by CKD-EPI >90 >=90 mL/min/1.7 3 m2 05/03/2023 4:31 AM [facility] Blood BLOOD SPECIMEN / Unknown Lab Venipuncture / Unknown 05/03/2023 2:35 AM CDT 05/03/2023 3:54 AM T Rizwan Rosa MD LAB - CHEMISTRY [facility] Organization Address City/State/ZIP Co de Phone Number [facility] [address] [place] [address], [facility] [phone] from Last 3 Months or Most Recently Relevant to Health Maintenance Advance Directives * Full Code (Latest Code Status on File) Date Activated Date Inactivated Comments 04/19/2023 9:20 PM 05/03/2023 12:35 PM * Full Code Date Activated Date Inactivated Comments 04/19/2023 9:20 PM 04/19/2023 9:20 PM * Full Code Date Activated Date Inactivated Comments 04/08/2023 2:39 AM 04/10/2023 7:32 PM Care Teams Manager Statistics Relationship Specialty Start Date End Date Maxine Payne [address] [place] [id number] PCP - General 04/09/23
--- OUTSIDE RECORDS SUMMARY | 2024-05-17 16:07 | XMS_ITS | Clinical Summary ---
Author Organization [facility] Address [address] [place] [phone] Phone Care Team Providers Care Washer Off Name Role Phone Alma Wan MD Primary Care Provider [phone] Allergies Active Allergy Reactions Criticality Noted Date [...] 90 tablet 1 10/04/19 24 025 Discontin ued(Ivone nt Reported) Active Problems Problem Noted Date [...] 128/84 Assessment & Plan (04/05/2023 3:10 PM UNDER SEAL OPERATOR): Mildly elevated in office today. No hx [...] Morbid obesity with BMI of 45.0-49.9, adult 12/2 07/2022 Assessment & Plan (12/11/2023 9:33 AM CDT): [...] 01/16/2023 Assessment & Plan (01/16/2023 2:48 PM UNDER SEAL OPERATOR): Chronic for 1-2 years per patient account. Referred to GI to establish care. Continue current regime for now Bipolar disorder with moderate depression 2022 Overview (09/05/2023): >>OVERVIEW FOR RECURRENT MAJOR DEPRESSION (HCC) WRITTEN ON 09/05/2023 4:29 AM BY AMLA WAN MD Details lacking. Assessment & Plan (10/05/2023 1:26 PM CDT): Chronic, unknown duration but likely years. She is on duloxetine for mood and pain. Her pain management providers are in [place] and also give her oxycodone. We previously referred her to [facility] psychiatry but have not received any follow-up [...] referred her to psychiatry at [facility] per her request. We will see her back here in three months, or sooner if needed. Assessment & Plan (01/16/2023 2:56 PM UNDER SEAL OPERATOR): Chronic and ongoing. Patient current out of [...] She reports a history of meningioma on V BEL[facility] imaging at [facility] in November 30, 2022. Those images have been downloaded into her chart but there is no report. I reviewed multiple images personally and do not see any obvious meningioma. We are referring her to neurology. Follow-up imaging or other evaluation may be needed given her history of chronic headaches. Assessment & Plan (01/16/2023 2:58 PM UNDER SEAL OPERATOR): Noted on CT 11/2022. Will request notes. [...] this condition including the initial one at [facility] (previously said to have been done at [facility]), followed by evaluation in [place], [place] a few years ago, and more recently at [facility] in [place] last November. I reviewed available records dating back to 06/01/2011 (Clinical Desktop) but am unable to find results of a lumbar puncture. We requested records from [place] and [facility]. I independently interpreted multiple [...] (multiple sclerosis) 08/12/2011 Overview (10/04/2023): Diagnosed at [facility] with MRI, LP per patient report. MR imaging of brain and spinal cord in 2012 negative for evidence of multiple sclerosis. MR images of brain and cervical cord negative for evidence of demyelinating disease, November 2022, [facility]. Assessment & Plan (09/15/2023 3:31 PM CDT): Chronic, status unknown. She reports being diagnosed with multiple sclerosis at [facility] in 2011. Details are not available. She [...] diagnosed. Assessment & Plan (04/05/2023 4:02 PM UNDER SEAL OPERATOR): Chronic. Now with complaint of tremor. New [...] changes. Assessment & Plan (01/16/2023 2:57 PM UNDER SEAL OPERATOR): Chronic and ongoing. Patient is aware that [...] condition. She says she was evaluated at [place] in 2012 and has had additional evaluations in [place] and at [facility]. We are trying [...] in 1-2 weeks from discharge locally ([facility] can be reached at [phone]) or at home in [place]. Will need repeat dilated examination and OCT [...] 07/02/2020 08/2 04/2023 Overview (10/04/2023): Nonoperative management, Thomas, Assessment & Plan (07/17/2020 10:29 AM CDT): [...] senna and suppository. WBC 10.6. HgB 9.2. Encounters Date Type Department Care Team Description 05/07/2024 Telephone [facility] [address] [place] [phone] Cristobal Mckinney MD 05/07/2024 Orders Only [facility] [address] [place] [address] Cristobal Mckinney MD Chronic migraine without aura without status migrainosus, not intractable (Primary Dx) 05/05/2024 11:15 AM CDT Office Visit [facility] [address] [place] [phone] Cristobal Mckinney MD MS (multiple sclerosis) (HCC) (Primary Dx); Chronic migraine without aura without status migrainosus, not intractable 03/16/2024 8:37 AM UNDER SEAL OPERATOR - 03/16/2024 11:59 PM UNDER SEAL OPERATOR Hospital Encounter [facility] [address] [place] [address] Numbness and tingling of upper and lower extremities of both sides (Primary Dx); MS (multiple sclerosis) (HCC) Discharge Disposition: Discharge to home or self care 03/11/2024 Telephone [facility] [address] [place] [address] Alma Wan MD Locking up 03/06/2024 1:22 PM UNDER SEAL OPERATOR - 03/06/2024 11:59 PM UNDER SEAL OPERATOR Hospital Encounter [facility] [address] [place] [address] MS (multiple sclerosis) (HCC) Discharge Disposition: Discharge to home or self care 03/06/2024 1:22 PM UNDER SEAL OPERATOR - 03/06/2024 11:59 PM UNDER SEAL OPERATOR Hospital Encounter [address] [address] MS (multiple sclerosis) (HCC) Discharge Disposition: Discharge to home or self care 03/06/2024 Telephone [facility] [address] [place] [phone] Michelle Adler CMA from Last 3 Months Immunizations Immunization Administration Dates Next Due Influenza, Unspecified 11/21/2022(Deferred: Ivon ent Refused) Surgical History Surgery Date Site/Laterality Comments SECTION three HERNIA REPAIR CHOLECYSTECTOMY EXPLORATORY LAPAROTOMY 04/26/2023 Adhesion lysis, small bowel resection with removal of bezoar and anastomosis, revision of previous anastomosis, and revision of abdominal scar. Prevena wound vac placement EXPLORATORY LAPAROTOMY 08/09/2020 EXPLORATORY LAPAROTOMY WITH LYSIS OF ADHESIONS, COLECTOMY, OMENTECTOMY AND SMALL BOWEL REPAIR;REPAR VENTRAL HERNIA, [facility]. TOTAL ABDOMINAL HYSTERECTOMY 02/12/2008 - 02/10/2009 N/A Dr. Ta, ovaries were left. HM DNA STOOL 11/24/2023 N/A Negative Medical History Medical History Date Comments Anxiety Depression Headache Obesity Acute abdominal pain in left upper quadrant 07/05/2020 Details lacking. Small bowel obstruction (HCC) 07/02/2020 No noperative management, Thomas, Spinal stenosis of cervical region 01/16/2023 Likely erroneous entry, MRI C- spine 11/17/2022 at [facility] notable for mild degenerative changes. Family History Medical History Relation Name Comments Mental illness Father Cancer Mother Kidney disease Mother Relation Name Status Comments Father Mother Social History Tobacco Use Types Packs/Day Years Used Date Smoking Tobacco: Former Cigarettes Q uit: 11/11/2022 Tobacco Cessation:Counseling Given: Not Answered PHQ-2 Answer Date Recorded PHQ-2 Total Score 6 09/05/2023 PHQ-9 Answer Date Recorded PHQ-9 Total Score 21 09/05/2023 Comments No Sex and Gender Information Value Date Recorded Sex Assigned at Not on file Legal Sex Female 1:46 AM UNDER SEAL OPERATOR Gender Identity Not on file Sexual Orientation Not on file Obstetrics History Last Filed Vital Signs Vital Sign Reading [...] 05/05/2024 11:11 AM CDT Plan of Treatment Health Maintenance Due Date Last Done Comments Breast Cancer Screening-Mammogram 1978 Hepatitis C Screening 1978 DTaP/Tdap/Td Vaccine (1 - Tdap) 1989 Hepatitis B Screening 1996 Pneumococcal vaccine <65 (1 of 2 - PCV) 1997 Depression Screening 09/04/2024 09/05/2023 Regular Well Visit/Exam 18-64 09/04/2024 09/05/2023 Influenza Vaccine (Season Ended) 2024 Colon Cancer Screening-Colonoscopy 11/23/2026 Postponed from 10/1978 (Provider's clinical decision) HPV Vaccines Aged Out No longer eligi ble based on patient's age to complete this topic Procedures Procedure Name Priority Date/Time Associated Diagnosis Comments EMG/NCV Routine 03/16/2024 11:06 AM UNDER SEAL OPERATOR MS (multiple sclerosis) (HCC) MRI BRAIN W WO CONTRAST Schedule RAJESH, Read Routine (Patient lives out of area) 03/06/2024 3:21 PM UNDER SEAL OPERATOR MS (multiple sclerosis) (HCC) MRI CERVICAL SPINE W WO CONTRAST Schedule RAJESH, Read Routine (Patient lives out of area) 03/06/2024 2:56 PM UNDER SEAL OPERATOR MS (multiple sclerosis) (HCC) from Last 3 Months Results * EMG/NCV - (03/16/2024 11:06 AM UNDER SEAL OPERATOR) Anatomical Region Laterality Modality EMG Impressions 03/16/2024 11:06 AM UNDER SEAL OPERATOR History: This is a 43 years old [...] Brain W WO Contrast (03/06/2024 3:21 PM UNDER SEAL OPERATOR) Anatomical Region Laterality Modality Head and Neck N/A Magnetic Resonan ce 03/06/2024 3:24 PM UNDER SEAL OPERATOR Narrative 03/06/2024 3:43 PM UNDER SEAL OPERATOR EXAM DESCRIPTION: MRI BRAIN WITHOUT AND WITH [...] Sam Antunez M.D. MATTI: MATTI Report ID: [id number] Reading Location: [place] [address] Procedure Note Sam Antunez MD - 03/06/2024 [...] Sam Antunez M.D. MATTI: MATTI Report ID: [id number] Reading Location: [place] [address] Cristobal Mckinney MD IMG MRI PROCEDURES Gabriella l Result * MRI Cervical Spine W WO Contrast (03/06/2024 2:56 PM UNDER SEAL OPERATOR) Anatomical Region Laterality Modality Spine N/A Magnetic Resonan ce 03/06/2024 3:24 PM UNDER SEAL OPERATOR Narrative 03/06/2024 3:43 PM UNDER SEAL OPERATOR EXAM DESCRIPTION: MRI BRAIN WITHOUT AND WITH [...] Sam Antunez M.D. MATTI: MATTI Report ID: [id number] Reading Location: [place] [address] Procedure Note Sam Antunez MD - 03/06/2024 [...] Sam Antunez M.D. MATTI: MATTI Report ID: [id number] Reading Location: [place] [address] Cristobal Mckinney MD IMG MRI PROCEDURES Gabriella l Result from Last 3 Months Insurance [facility] Advance Directives For more information, please contact: [phone] * Full Code (Latest Code Status on File) Date Activated Date Inactivated Comments 07/13/2020 7:10 AM 07/17/2020 5:28 PM * Full Code Date Activated Date Inactivated Comments 07/02/2020 10:50 PM 07/09/2020 7:07 PM Care Teams Washer Off Relationship Specialty Start Date End Date Alma Wan MD [address] [place] [address] PCP - General Internal Medicine 09/05/23
--- NOTE | 2024-05-17 16:20 | ED_ITS ---
HPI - Dental/Oral General Chief complaint: Dental/Oral Stated complaint: Tooth Pain Time Seen by Provider: 05/17/24 16:20 Source: patient, RN notes reviewed and old records reviewed Mode of arrival: ambulatory Limitations: no limitations History of Present Illness HPI Narrative: 43 year old female presents with dental pain to the right lower gum and broken tooth #27 which is broken off and has obvious decay. patient has very poor dentition with numerous teeth broken off at gum line, missing teeth and decay. Patient reports that she has had difficulty with calcium absorption since having her child and teeth were good till then. Patient has been taking Ibuprofen and Tylenol for her discomfort with last dose 1 hour ago. Patient reports that she was told by last dentist she saw in [place] that she would have to see oral surgeon to get teeth removed. Patient reports increased pain for the past 5 days with some swelling noted to the right jaw area. MD Complaint: tooth pain Location: Tooth # (27) Onset (ago): day(s) (increased symptoms for 5 days) Duration: constant Severity scale (1-10): 7 Exacerbating factors: chewing Treatment prior to arrival: oral analgesic and other (ice compresses and Listerine) Related Data Home Medications ?Medication ?Instructions ?Recorded ?Confirmed ?Last Taken ?Type cyclobenzaprine 10 mg tablet 10 mg PO TID PRN Muscle Spasm 12/23/20 11/15/22 11/14/22 History duloxetine 60 mg capsule,delayed 60 mg PO BID 01/19/22 11/15/22 11/15/22 History release mecobalamin (vitamin B12) 10,000 5,000 mcg IM WEEKLY 01/19/22 11/15/22 1 Week Ago History mcg solution for injection ~11/08/22 ergocalciferol (vitamin D2) 1,250 05/17/24 Unknown History mcg (50,000 unit) capsule Allergies Allergy/AdvReac Type Severity Reaction Status Date / Time methocarbamol (From Robaxin) Allergy Severe Anaphylactic Verified 05/17/24 16:13 Shock adhesive Allergy Unknown RASH Verified 05/17/24 16:13 latex Allergy Unknown RASH ON Verified 05/17/24 16:13 HANDS gabapentin Allergy Anxiety Verified 05/17/24 16:13 Review of Systems Review of Systems: CONSTITUTIONAL: Denies fever, chills, or sweats. ENT: Denies rhinorrhea, congestion, sore throat, or otalgia. Reports dental pain to broken tooth with obvious decay #27 with poor dentition noted and some right sided jaw swelling. Denies any difficulty with swallowing or with her breathing. CARDIOVASCULAR: Denies chest pain, palpitations, or edema. RESPIRATORY: Denies cough or dyspnea. SKIN: Denies rash or itching. MUSCULOSKELETAL: Denies myalgia. NEUROLOGIC: Denies headache All systems reviewed & are unremarkable except as noted in HPI and below PMFSH Past Medical History Medical History (Updated 05/18/24 @ 20:23 by Rashida Samaniego NP) CVA (cerebral vascular accident) Hemiplegic migraine Multiple sclerosis GERD (gastroesophageal reflux disease) History of dental problems Short bowel syndrome Surgical History Surgical History (Updated 05/18/24 @ 20:24 by Rashida Samaniego NP) History of ear surgery left reports all bones removed Hx of cholecystectomy History of hysterectomy Previous section x3 History of bowel resection x9 Family History Family History Mother Family history of malignant neoplasm of cervix Family history of malignant neoplasm of breast in first degree relative Grandparent Family history of malignant neoplasm of breast Other Diabetes mellitus Family history of coronary artery disease Hypertension Social History Social History Smoking packs per day: 0.75 Smoking cigarettes per day: 15.0 Years smoked: 30 Smoking pack-years: 22.50 Smoking status: Current every day smoker Tobacco type: cigarettes Alcohol intake: never Substance use: never Substance use type: does not use Lack of Transportation: No Lack of Food: Never True Current Housing: I Have Housing Concerned About Future Housing: No Difficulty Paying Gas/Electric Bills: No Difficulty Paying for Meds: No Currently Unemployed: No Education: High School Diploma/GED Difficulty w/ Childcare or Family Care: No Spiritual care concerns: No Comments At time of signature, agree with nursing past medical, surgical, social and family history. There is no relevant family history pertinent to the presenting complaint Exam Narrative: GENERAL: Well-appearing, well-nourished, and in no acute distress. HEAD: Normocephalic, atraumatic. EYES: PERRLA and EOMI. ENT: Nares clear, no rhinorrhea or epistaxis. Mucous membranes moist. Missing teeth, broken teeth, caries, pain to #27 tooth which is broken off with caries, multiple teeth broken at gum line,missing teeth. some swelling to right jaw area no trismus or any Wilfredo angina noted. NECK: Supple. no lymphadenopathy CHEST: Clear to auscultation. No respiratory distress. no cough noted SAO2 96% on room air HEART: Regular rate and rhythm. No murmur heard. Normal peripheral pulses. SKIN: Warm, dry, no rash. NEURO: No focal deficits. Alert and oriented x3. Course Course Emergency Course: Patient is aware of diagnosis, understands and agrees to treatment plan. Anticipatory guidance given. Patient agrees to follow-up as directed and is aware of reasons to seek care at the emergency department. Portions of this record may have been created with voice recognition software Level of Care: Express Care Visit Vital Signs Vital signs: Vital Signs Temperature 36.7 C 05/17/24 16:28 Pulse Rate 103 H 05/17/24 16:28 Respiratory Rate 20 05/17/24 16:28 Blood Pressure 138/103 H 05/17/24 16:28 Pulse Oximetry 96 05/17/24 16:28 Oxygen Delivery Room Air 05/17/24 16:28 Temperature 36.7 C 05/17/24 16:28 Pulse Rate 103 H 05/17/24 16:28 Respiratory Rate 20 05/17/24 16:28 Blood Pressure 138/103 H 05/17/24 16:28 Pulse Oximetry 96 05/17/24 16:28 Oxygen Delivery Room Air 05/17/24 16:28 Reviewed MDM - Dental/Oral MDM Narrative Medical decision making narrative: Patients pain and complaint coupled with physical findings are consistent with dentalgia. There are no focal signs of space occupying lesions that are compromising to the airway; no dysphagia, odynophagia, dysphonia, or dyspnea. No uvular deviation or soft palate edema. Patient is non-toxic appearing. The floor of the mouth is soft with no signs of Wilfredo's Angina; no induration below mandible, no neck pain.? Patient is without trismus or drooling and able to swallow secretions.? Patient is felt appropriate for discharge home with dental follow up. Differential Diagnosis Differential diagnosis: Likely dental caries, toothache, dental abscess, fracture of tooth and other (dentalgia) Medical Records Attestation: I reviewed the patient's medical records. Critical Care Time Critical Care Time Critical Care Time: No Discharge Plan Discharge Clinical Impression: Pain, dental, Swelling of right side of face, Dental caries Patient Disposition: Home Condition: Stable Instructions: Antibiotic Form, Toothache (ED) Additional Instructions: Avoid temperature extremes May apply heat or ice to the face Gentle brushing and flossing Antibiotic as directed Tylenol for lesser pain Use ibuprofen regularly Follow-up with the dentist as soon as possible--see the list provided Viscous lidocaine used Q-tip and apply to area of pain up to 4 times daily for pain control If your symptoms persist, change or worsen significantly before you can contact your personal physician then please, without delay, go to the emergency department for further evaluation. Follow-up with PCP in 7-10 days or sooner if needed Follow up with PCP soon in regards to your blood pressure which is elevated above threshold for referral. Blood pressure above 120/80 may indicate pre- hypertension. Patient Language: Dominican Prescriptions: New penicillin V potassium 500 mg tablet 500 mg PO Q12H 10 Days Qty: 20 0RF lidocaine HCl [Lidocaine Viscous] 2 % solution 1 applic mucous membrane QID PRN (Reason: pain) Qty: 100 0RF Rx Instructions: apply with Q tip to gum area No Action cyclobenzaprine 10 mg tablet 10 mg PO TID PRN (Reason: Muscle Spasm) duloxetine 60 mg Capsule,Delayed Release(Dr/Ec) 60 mg PO BID mecobalamin (vitamin B12) 10,000 mcg Recon Soln 5,000 mcg IM WEEKLY ergocalciferol (vitamin D2) 1,250 mcg (50,000 unit) capsule Follow-up/Referrals: Savage,Emiliano Moulton MD [Primary Care Provider] - Stand Alone Forms: Work/School Release IP Time of Disposition: 16:51 Quality Sydni Coma Scale Eyes: Open Verbal: Oriented and Alert Motor: Follows Commands Sydni Coma Total Score: 15
[2024-05-17 16:28] VITALS: BP 138/103; PULSE 103; RESP 20; TEMP 36.7; O2SAT 96
== END 2024-05-17 16:50 | disposition home or self-care (01) ==
PROVIDERS: Emergency Provider Registered Nurse; PCP Internal Medicine Infectious Disease
DX: K02.9 Dental caries, unspecified (principal); R22.0 Localized swelling, mass and lump, head; G35 Multiple sclerosis; K21.9 Gastro-esophageal reflux disease without esophagitis; Z86.73 Personal history of transient ischemic attack (TIA), and cerebral infarction without residual deficits
CPT/HCPCS: 99213; G0463

== ENCOUNTER 2024-05-25 17:17 | Emergency (ER) | payer OTHER, SELFPAY ==
--- NOTE | ~2024-05-25 | CT_ITS ---
CT facial bones w con Ordering provider: Cassidy Garrison III, DO History: . DENTAL PAIN, RT SIDE FACIAL SWELLING . Comparison: None. Technique: Thin slice axial CT of the facial bones was performed without contrast. Coronal and sagit oneil reformatted images were also obtained. . Automated exposure control and iterative reconstruction technique were employed. The dose-length product was 704.89 mGy-cm. 75 mL Omnipaque 350 was given IV . FINDINGS: PARANASAL SINUSES: Well aerated. BONES: No facial fracture including no nasal bone fracture. Dental caries are seen in multiple teeth in the upper and lower jaw. No definite dental abscess seen. ORBITS AND SUPERFICIAL SOFT TISSUES: The optic globes and orbits are normal. Fat stranding and soft t issue swelling is seen in the right paramedian area of the lower mandible which is most likely inflam matory. No definite abscess seen. Otherwise, The superficial soft tissues are normal. VISUALIZED MASTOIDS: Effusions seen in the right mastoid air cells. LIMITED VISUALIZED BRAIN PARENCHYMA: Normal. IMPRESSION: No facial fracture. Fat stranding in the subcutaneous tissues of the right paramedian area of the mandible suggestive of cellulitis. No definite abscess seen. Dental caries are seen in multiple teeth. Reviewed, dictated and finalized at location A. IMPRESSION: No facial fracture. Fat stranding in the subcutaneous tissues of the right paramedian area of the m andible suggestive of cellulitis. No definite abscess seen. Dental caries are s een in multiple teeth.
[2024-05-25 17:17] VITALS: BP 159/105; PULSE 103; RESP 18; TEMP 36.3; O2SAT 95
--- NOTE | 2024-05-25 17:32 | ED.DENTAL ---
HPI - Dental/Oral General Chief complaint: Dental/Oral Stated complaint: facial/tooth pain Time Seen by Provider: 05/25/24 17:27 History of Present Illness HPI Narrative: Pt presents with pain and swelling to her lower front teeth for over a week. Pt says she has been on oral pcn for 7 days and it's not better. Pt says she feels sleepy and slept 36 hours so she is worried she is septic. Pt not sure if she has fever. Pt says she needs oral surgeon but can't find one that accepts medicaid. Related Data Home Medications ?Medication ?Instructions ?Recorded ?Confirmed ?Last Taken ?Type cyclobenzaprine 10 mg tablet 10 mg PO TID PRN Muscle Spasm 12/23/20 11/15/22 11/14/22 History duloxetine 60 mg capsule,delayed 60 mg PO BID 01/19/22 11/15/22 11/15/22 History release mecobalamin (vitamin B12) 10,000 5,000 mcg IM WEEKLY 01/19/22 11/15/22 1 Week Ago History mcg solution for injection ~11/08/22 ergocalciferol (vitamin D2) 1,250 05/17/24 Unknown History mcg (50,000 unit) capsule Allergies Allergy/AdvReac Type Severity Reaction Status Date / Time methocarbamol (From Robaxin) Allergy Severe Anaphylactic Verified 05/25/24 17:26 Shock adhesive Allergy Unknown RASH Verified 05/25/24 17:26 latex Allergy Unknown RASH ON Verified 05/25/24 17:26 HANDS gabapentin Allergy Anxiety Verified 05/25/24 17:26 Review of Systems Review of Systems: All systems reviewed & are unremarkable except as noted in HPI and below PMFSH Past Medical History Medical History (Updated 05/25/24 @ 19:31 by Cassidy Garrison III, DO) CVA (cerebral vascular accident) Hemiplegic migraine Multiple sclerosis GERD (gastroesophageal reflux disease) History of dental problems Short bowel syndrome Surgical History Surgical History (Updated 05/18/24 @ 20:24 by Rashida Samaniego NP) History of ear surgery left reports all bones removed Hx of cholecystectomy History of hysterectomy Previous section x3 History of bowel resection x9 Family History Family History Mother Family history of malignant neoplasm of cervix Family history of malignant neoplasm of breast in first degree relative Grandparent Family history of malignant neoplasm of breast Other Diabetes mellitus Family history of coronary artery disease Hypertension Social History Social History Smoking packs per day: 0.75 Smoking cigarettes per day: 15.0 Years smoked: 30 Smoking pack-years: 22.50 Smoking status: Current every day smoker Tobacco type: cigarettes Alcohol intake: never Substance use: never Substance use type: does not use Lack of Transportation: No Lack of Food: Never True Current Housing: I Have Housing Concerned About Future Housing: No Difficulty Paying Gas/Electric Bills: No Difficulty Paying for Meds: No Currently Unemployed: No Education: High School Diploma/GED Difficulty w/ Childcare or Family Care: No Spiritual care concerns: No Exam Const: General: no acute distress Nutritional Appearance: well nourished Orientation/consciousness: patient oriented x3 Limitations: no limitations HENMT: Teeth and gingiva: abnormal tooth and associated gingiva (numerous dental caries and broken off teeth. no definitie abscess ) Other: swelling to lower face and jaw Neck: Neck: normal visual inspection and no meningeal signs Resp: Effort & Inspection: normal respiratory effort Auscultation: clear to auscultation bilaterally Cardio: Rate: regular rate Rhythm: regular rhythm GI: GI Palp: Yes Soft to palpation and No Tenderness to palpation present (GI) Auscultation: normal bowel sounds Skin: General skin exam: normal color Rashes: no rashes Wounds: no wounds Neuro: General: patient oriented x3, moves all extremities, no meningeal signs and no focal motor deficits Cranial nerves: Yes Nystagmus not present Speech: normal speech Extrem: General: normal to inspection and no clubbing, cyanosis or edema Psych: Mental Status: mental status grossly normal Affect: normal affect Attitude: cooperative Course Vital Signs Vital signs: Vital Signs Temperature 97.4 F L 05/25/24 17:17 Pulse Rate 103 H 05/25/24 17:17 Respiratory Rate 18 05/25/24 17:17 Blood Pressure 159/105 H 05/25/24 17:17 Pulse Oximetry 95 05/25/24 17:17 Oxygen Delivery Room Air 05/25/24 17:17 Temperature 97.4 F L 05/25/24 17:17 Pulse Rate 103 H 05/25/24 17:17 Respiratory Rate 18 05/25/24 17:17 Blood Pressure 159/105 H 05/25/24 17:17 Pulse Oximetry 95 05/25/24 17:17 Oxygen Delivery Room Air 05/25/24 17:17 MDM - Dental/Oral MDM Narrative Medical decision making narrative: Pt has been on antibiotics for dental infection for a week and the swelling is worse. need to be concerned about abscess or osteo so will get labs and ct and antibiotics and toradol for pain. gave a little morphine for pain and pt feels better. ct shows cellulitis but no abscess, cbc ok, k low will correct. home on clinda and [employer] Lab Data 05/25/24 17:49 05/25/24 17:49 Labs: Lab Results 05/25/24 Range/Units 17:49 WBC 9.7 (4.8-10.8) K/mm3 RBC 4.26 (4.20-5.40) M/mm3 Hgb 11.5 L (12.0-15.0) g/dL Hct 36.3 (35.0-49.0) % MCV 85.2 (78.0-102.0) fL MCH 27.0 (27.0-31.0) pg MCHC 31.7 L (32-36) g/dL RDW 13.9 (11.6-14.4) % Plt Count 269 (150-420) K/mm3 MPV 9.6 (9.2-11.8) fl Immature Gran % (Auto) 0.3 H (0.0-0.0) % Neut % (Auto) 80.1 H (50.0-70.0) % Lymph % (Auto) 13.5 L (18.0-42.0) % [place] % (Auto) 4.5 (2.0-11.0) % Eos % (Auto) 1.2 (1.0-6.0) % Baso % (Auto) 0.4 (0.0-1.0) % Lymph # (Auto) 1.31 (1.10-4.50) K/mm3 [place] # (Auto) 0.44 (0.10-0.90) K/mm3 Eos # (Auto) 0.12 (0.02-0.50) K/mm3 Baso # (Auto) 0.04 (0.00-0.10) K/mm3 Abs Immat Gran (auto) 0.03 H (0.00-0.00) K/mm3 Absolute Neuts (auto) 7.79 H (1.70-7.20) K/mm3 Absolute Nucleated RBC 0.00 (0.00-0.00) K/mm3 Nucleated RBC % 0.0 (0-0.0) % Sodium 131 L (136-145) mmol/L Potassium 2.8 L (3.5-5.1) mmol/L Chloride 95 L (98-108) mmol/L Carbon Dioxide 30 (21-32) mmol/L Anion Gap 6 (4-12) mmol/L BUN 10 (7-18) mg/dL Creatinine 0.98 (0.55-1.02) mg/dL Estim Creat Clear Calc 84 ml/min Estimated GFR > 60 (59 - ) Glucose 133 H (70-99) mg/dL Calculated Osmolality 273 L (285-295) mOsm/kg Calcium 8.6 (8.5-10.1) mg/dL Total Bilirubin 0.6 (0.00-1.00) mg/dL AST 24 (15-37) U/L ALT 28 (14-59) U/L Alkaline Phosphatase 122 H (46-116) U/L Total Protein 7.3 (6.4-8.2) g/dL Albumin 3.3 L (3.4-5.0) g/dL Discharge Plan Discharge Clinical Impression: Dental caries, Cellulitis Patient Disposition: Home Condition: Stable Instructions: Antibiotic Form, Cellulitis (ED), Toothache (ED) Patient Language: Irish Prescriptions: New clindamycin HCl [Cleocin HCl] 300 mg capsule 300 mg PO Q6H Qty: 40 0RF hydrocodone-acetaminophen 5-325 mg tablet 1 tablet PO Q6H PRN (Reason: pain) Qty: 10 0RF No Action cyclobenzaprine 10 mg tablet 10 mg PO TID PRN (Reason: Muscle Spasm) duloxetine 60 mg Capsule,Delayed Release(Dr/Ec) 60 mg PO BID mecobalamin (vitamin B12) 10,000 mcg Recon Soln 5,000 mcg IM WEEKLY ergocalciferol (vitamin D2) 1,250 mcg (50,000 unit) capsule penicillin V potassium 500 mg tablet 500 mg PO Q12H 10 Days Qty: 20 0RF lidocaine HCl [Lidocaine Viscous] 2 % solution 1 applic mucous membrane QID PRN (Reason: pain) Qty: 100 0RF Rx Instructions: apply with Q tip to gum area Follow-up/Referrals: Savage,Emiliano Moulton MD [Primary Care Provider] - Stand Alone Forms: Work/School Release IP
[2024-05-25] MEDS: CLINDAMYCIN 600 MG/D5W 50 ML 600 MG/50 ML PIGGYBACK 100 MG IVPB (17:48)
[2024-05-25] MEDS: KETOROLAC 15 MG/ML VIAL (*BKC) IV PUSH (17:50)
[2024-05-25 17:52] LABS: Basophils Absolute Auto 0.04 K/mm3 (0.00-0.10); Basophils Percent Auto 0.4 % (0.0-1.0); Eosinophils Absolute Auto 0.12 K/mm3 (0.02-0.50); Eosinophils Percent Auto 1.2 % (1.0-6.0); Hematocrit 36.3 % (35.0-49.0); Hemoglobin 11.5 g/dL (12.0-15.0); Immature Granulocyte Absolute 0.03 K/mm3 (0.00-0.00); Immature Granulocyte Percent A 0.3 % (0.0-0.0); Lymphocytes Absolute Auto 1.31 K/mm3 (1.10-4.50); Lymphocytes Percent Auto 13.5 % (18.0-42.0); Mean Corpuscular HGB Conc 31.7 g/dL (32-36); Mean Corpuscular Volume 85.2 fL (78.0-102.0); Mean Platelet Volume 9.6 fl (9.2-11.8); Monocytes Absolute Auto 0.44 K/mm3 (0.10-0.90); Monocytes Percent Auto 4.5 % (2.0-11.0); Neutrophils Absolute Auto 7.79 K/mm3 (1.70-7.20); Neutrophils Percent Auto 80.1 % (50.0-70.0); Platelet Count Result 269 K/mm3 (150-420); Red Blood Count 4.26 M/mm3 (4.20-5.40); Red Cell Distribution Width 13.9 % (11.6-14.4); White Blood Count 9.7 K/mm3 (4.8-10.8)
--- OUTSIDE RECORDS SUMMARY | 2024-05-25 17:56 | XMS_ITS | Clinical Summary ---
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
--- OUTSIDE RECORDS SUMMARY | 2024-05-25 17:56 | XMS_ITS | Encounter Summary ---
Author Organization [facility] Healthcare Address [address] [place] [address] Care Team Providers Care [place] Boatman Name Role Phone Miscellaneous, Not In File Primary Care Provider Unavailable No, Physician Primary Care Provider [phone] Maxine Payne MD Primary Care Provider [phone] Emiliano Wan MD Primary Care Provider [phone] Encounter Details Date Type Department Care Team (Latest Contact Info) Description 07/08/2020 Ophth Exam Ophthalmology Fang Nunez MD PhD [address] [facility] [address] [place] [address] Social History Tobacco Use Types Packs/Day Years Used Date Smoking Tobacco: Every Day Cigarettes Comments No Sex and Gender Information Value Date Recorded Sex Assigned at Not on file 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 Gender Identity Not on file Sexual Orientation [...] Right eye Left eye Ishihara 01/22 01/22 datacap developer desaturation test with OD 70% brightness relative [...] without lesions, tears or detachments Care Teams [place] Boatman Relationship Specialty Start Date End Date Miscellaneous, Not In File PCP - General 07/14/2012/05 No, Physician PCP - General 12/06/22 01/15/23 Maxine Payne MD [address] [place] [id number] PCP - General Family Medicine 01/16/23 09/04/23 Emiliano Wan MD [address] [id number] PCP - General Internal Medicine 09/05/23 documented as of this encounter
--- OUTSIDE RECORDS SUMMARY | 2024-05-25 17:56 | XMS_ITS | Clinical Summary ---
Author Organization [facility] Address [address] [place] [address] Phone Care Team Providers Care Supervisor Nut Processing Name Role Phone Emiliano Wan MD Primary Care Provider [phone] Allergies Active Allergy Reactions Criticality Noted Date [...] Tablet 4 Active neomycin-polymy deb-hydrocortis one (CORTISPORIN) [id number] 3 Drops in right ear [...] Family History Medical History Relation Name Comments Mkhr-Urtjbtluy-Fpqbq Syndrome Brother Hypertension Father Cancer Maternal Grandfather [...] drink = 0.6 oz pur e alcohol) [facility] Utilities Answer Date Recorded In the past [...] declined 09/19/2023 How often do you attend baptist or voodoo serv ices? Patient declined 09/19/2023 Do you belong to any clubs o r organizations such as baptist groups, unions, fraternal or athletic groups, or [...] and heating? Not hard at all 09/19/2023 [facility] - Occupational Stress Questionnaire Answer Date Recorded [...] place to sleep or slept in a usp (including now)? No 03/23/2023 Housing Stability Vital [...] any time in the past 12 m [facility], were you homeless or living in a usp (including now)? Patient declined 09/20/2023 Sexually Active Control Partners Comments Yes Male Comments No Sex and Gender Information Value Date Recorded Sex Assigned at Not on file Legal Sex Female 9:46 PM CDT Gender Identity Not on file Sexual Orientation Not on file Last Filed Vital Signs Vital Sign Reading Time Taken Comments Blood Pressure 121/66 01/06/2024 9:30 PM BENEFITS TECHNICIAN Pulse 97 01/06/2024 9:30 PM BENEFITS TECHNICIAN Temperature 35.9 C (96.6 F) 01/06/2024 6:37 PM BENEFITS TECHNICIAN Respiratory Rate 18 01/06/2024 6:37 PM BENEFITS TECHNICIAN Oxygen Saturation 98% 01/06/2024 9:30 PM BENEFITS TECHNICIAN Inhaled Oxygen Concentration - - Weight 113.4 kg (250 lb) 01/06/2024 6:37 PM BENEFITS TECHNICIAN Height 157.5 cm (5' 2 ) 01/06/2024 6:37 PM BENEFITS TECHNICIAN Body Mass Index 45.73 01/06/2024 6:37 PM BENEFITS TECHNICIAN Plan of Treatment Health Maintenance Due Date [...] measures to stabilize the patient. Care Teams Supervisor Nut Processing Relationship Specialty Start Date End Date Emiliano Wan MD [address] [place] [address] PCP - General Infectious Disease 01/06/24
--- OUTSIDE RECORDS SUMMARY | 2024-05-25 17:56 | XMS_ITS | Patient Health Record ---
Author Organization [facility] Address [address] [place] [id number] Care Team Providers Care Steersman Name Role Phone Amy Beltrán Unavailable [phone] Non [facility] Provider, Provider Unavailable Unavailable Reason For Referral No Information Plan Of Treatment No Information
--- OUTSIDE RECORDS SUMMARY | 2024-05-25 17:57 | XMS_ITS | Encounter Summary ---
Author Organization [facility] Address [address] [facility] [place] [address] Care Team Providers Care Wage Analyst Name Role Phone Maxine Payne Primary Care Provider [phone] Reason for Visit * Reason Onset Date Comments Wound Care 05/09/2023 Encounter Details Date Type Department Care Team (Late st Contact Info) Description 05/09/2023 Telephone [facility] [address] [place] [id number] Leonel Velasquez MD [address] [place] [address] [place] [address] Wound Care Social History Tobacco [...] and heating? Not hard at all 04/19/2023 [facility] - Occupational Stress [...] place to sleep or slept in a halfway (including now)? 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 Answer Date of Assessment Author No 04/19/2023 10:09 PM Lorraine Walker RN * Is person blind or have serious difficulty seeing? Answer Date of Assessment Author No 04/19/2023 10:09 PM Lorraine Walker RN * Does person have serious difficulty walking/climbing stairs? Answer Date of Assessment Author No 04/19/2023 10:09 PM Lorraine Walker, RN * Does person have difficulty dressing/bathing? Answer Date of Assessment Author No 04/19/2023 10:09 PM Lorraine Walker, RN * Does person have difficulty doing errands alone? Answer Date of Assessment Author No 04/19/2023 10:09 PM Lorraine aWlker, RN documented as of this encounter Mental Status * Does person have difficulty concentrating/remembering/making decisions? Answer Entry Date Author No 04/19/2023 10:09 PM Lorraine Walker, RN documented in this encounter Miscellaneous Notes * Telephone Encounter [...] on filedocumented in this encounter Care Teams Wage Analyst Relationship Specialty Start Date End Date [place] [address] PCP - General 04/09/23 documented as of this encounter
--- OUTSIDE RECORDS SUMMARY | 2024-05-25 17:57 | XMS_ITS | Clinical Summary ---
Author Organization [facility] Virtual Care Address [address] [place] [phone] Phone Care Team Providers Care Supervisor Functional Testing Name Role Phone Alma Wan MD Primary Care Provider Allergies Active Allergy Reactions Criticality Noted Date [...] 128/84 Assessment & Plan (04/05/2023 3:10 PM ARCHERY EQUIPMENT REPAIRER): Mildly elevated in office today. No hx [...] 01/16/2023 Assessment & Plan (01/16/2023 2:48 PM ARCHERY EQUIPMENT REPAIRER): Chronic for 1-2 years per patient account. [...] pain. Her pain management providers are in [place] and also give her oxycodone. We previously referred her to [facility] psychiatry but have not received any follow-up [...] refills. We referred her to psychiatry at [facility] per her request. We will see her back here in three months, or sooner if needed. Assessment & Plan (01/16/2023 2:56 PM ARCHERY EQUIPMENT REPAIRER): Chronic and ongoing. Patient current out of [...] x 2.1 cm reported on brain MRI, [facility]. Assessment & Plan (10/04/2023 3:33 PM CDT): New diagnosis as of about eight months ago as far as I can tell. MRI at [facility] reported a left hemispheric 4 x 2 cm meningioma. The patient has chronic headaches. She will need follow-up with Neurology to determine any relationship or needed treatment. We are trying to expedite that appointment for her. Assessment & Plan (09/05/2023 3:52 PM CDT): Chronic, unknown status. 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 Those images have been downloaded into her chart but there is no report. I reviewed multiple images personally and do not see any obvious meningioma. We are referring her to neurology. Follow-up imaging or other evaluation may be needed given her history of chronic headaches. Assessment & Plan (01/16/2023 2:58 PM ARCHERY EQUIPMENT REPAIRER): Noted on CT 11/2022. Will request notes. [...] this condition including the initial one at [facility] (previously said to have been done at [facility]), followed by evaluation in [place], [place] a few years ago, and more recently at [facility] in [place] last November. I reviewed available records dating back to 06/01/2011 (Clinical Desktop) but am unable to find results of a lumbar puncture. We requested records from [place] and [facility]. I independently interpreted multiple imaging reports of the spinal cord, brain and orbits obtained over the years including MRI of the cervical spine and brain done at [facility] in November and at this time [...] (multiple sclerosis) 08/12/2011 Overview (10/04/2023): Diagnosed at [facility] with MRI, LP per patient report. MR imaging of brain and spinal cord in 2012 negative for evidence of multiple sclerosis. MR images of brain and cervical cord negative for evidence of demyelinating disease, November 2022, [facility]. Assessment & Plan (09/15/2023 3:31 PM CDT): Chronic, status unknown. She reports being diagnosed with multiple sclerosis at [facility] in 2011. Details are not available. She [...] The most recent MRI imaging available from [facility] about nine months ago has no associated report. I personally reviewed and interpreted the images and I do not see any obvious evidence of active multiple sclerosis in the brain. We referred her to Neurology, Dr. Mckinney, who apparently saw her in the past when she was first diagnosed. Assessment & Plan (04/05/2023 4:02 PM ARCHERY EQUIPMENT REPAIRER): Chronic. Now with complaint of tremor. New [...] Likely erroneous entry, MRI C-spine 11/17/2022 at [facility] notable for mild degenerative changes. Assessment & Plan (01/16/2023 2:57 PM ARCHERY EQUIPMENT REPAIRER): Chronic and ongoing. Patient is aware that [...] condition. She says she was evaluated at [facility] in 2012 and has had additional evaluations in [place] and at [facility]. We are trying to gather the [...] in 1-2 weeks from discharge locally ([facility] can be reached at [phone]) or at home in [place]. Will need repeat dilated examination and OCT [...] Type Department Care Team Description 05/07/2024 Telephone [facility] [address] [place] [phone] Cristobal Mckinney MD 05/07/2024 Orders Only [facility] Neurology [address] [place] [address] Cristobal Mckinney MD Chronic migraine without aura without status migrainosus, not intractable (Primary Dx) 05/05/2024 11:15 AM CDT Office Visit [facility] Neurology [address] [place] [phone] Cristobal Mckinney MD MS (multiple sclerosis) (HCC) (Primary Dx); Chronic migraine without aura without status migrainosus, not intractable 03/16/2024 8:37 AM ARCHERY EQUIPMENT REPAIRER - 03/16/2024 11:59 PM ARCHERY EQUIPMENT REPAIRER Hospital Encounter [facility] Neurology Testing [address] [place] [address] Numbness and tingling of upper and lower extremities of both sides (Primary Dx); MS (multiple sclerosis) (HCC) Discharge Disposition: Discharge to home or self care 03/11/2024 Telephone [facility] [address] [place] [address] Alma Wan MD Locking up 03/06/2024 1:22 PM ARCHERY EQUIPMENT REPAIRER - 03/06/2024 11:59 PM ARCHERY EQUIPMENT REPAIRER Hospital Encounter [facility] [address] [place] [address] MS (multiple sclerosis) (HCC) Discharge Disposition: Discharge to home or self care 03/06/2024 1:22 PM ARCHERY EQUIPMENT REPAIRER - 03/06/2024 11:59 PM ARCHERY EQUIPMENT REPAIRER Hospital Encounter [address] [address] MS (multiple sclerosis) (HCC) Discharge Disposition: Discharge to home or self care 03/06/2024 Telephone [facility] Medicine [facility] [place] [address] [place] [phone] Michelle Adler CMA from Last 3 Months [...] OMENTECTOMY AND SMALL BOWEL REPAIR;REPAR VENTRAL HERNIA, [facility]. TOTAL ABDOMINAL HYSTERECTOMY 02/12/2008 - 02/10/2009 N/A Dr. Ta, ovaries were left. HM DNA STOOL 11/24/2023 N/A Negative Medical History Medical History Date Comments Anxiety Depression Headache Obesity Acute abdominal pain in left upper quadrant 07/05/2020 Details lacking. Small bowel obstruction (HCC) 07/02/2020 No noperative management, [facility], Spinal stenosis of cervical region 01/16/2023 Likely erroneous entry, MRI C- spine 11/17/2022 at [facility] notable for mild degenerative changes. Family [...] on file Legal Sex Female 1:46 AM ARCHERY EQUIPMENT REPAIRER Gender Identity Not on file Sexual Orientation [...] Diagnosis Comments EMG/NCV Routine 03/16/2024 11:06 AM ARCHERY EQUIPMENT REPAIRER MS (multiple sclerosis) (HCC) MRI BRAIN W WO CONTRAST Schedule RAJESH, Read Routine (Patient lives out of area) 03/06/2024 3:21 PM ARCHERY EQUIPMENT REPAIRER MS (multiple sclerosis) (HCC) MRI CERVICAL SPINE W WO CONTRAST Schedule RAJESH, Read Routine (Patient lives out of area) 03/06/2024 2:56 PM ARCHERY EQUIPMENT REPAIRER MS (multiple sclerosis) (HCC) from Last 3 Months Results * EMG/NCV - (03/16/2024 11:06 AM ARCHERY EQUIPMENT REPAIRER) Anatomical Region Laterality Modality EMG Impressions 03/16/2024 11:06 AM ARCHERY EQUIPMENT REPAIRER History: This is a 43 years old [...] Brain W WO Contrast (03/06/2024 3:21 PM ARCHERY EQUIPMENT REPAIRER) Anatomical Region Laterality Modality Head and Neck N/A Magnetic Resonan ce 03/06/2024 3:24 PM ARCHERY EQUIPMENT REPAIRER Narrative 03/06/2024 3:43 PM ARCHERY EQUIPMENT REPAIRER EXAM DESCRIPTION: MRI BRAIN WITHOUT AND WITH [...] Sam Antunez M.D. MATTI: MATTI Report ID: [id number] Reading Location: [place] [address] Procedure Note Sam Antunez MD - 03/06/2024 [...] Sam Antunez M.D. MATTI: MATTI Report ID: [id number] Reading Location: [place] [address] Cristobal Mckinney MD IMG MRI PROCEDURES Gabriella l Result * MRI Cervical Spine W WO Contrast (03/06/2024 2:56 PM ARCHERY EQUIPMENT REPAIRER) Anatomical Region Laterality Modality Spine N/A Magnetic Resonan ce 03/06/2024 3:24 PM ARCHERY EQUIPMENT REPAIRER Narrative 03/06/2024 3:43 PM ARCHERY EQUIPMENT REPAIRER EXAM DESCRIPTION: MRI BRAIN WITHOUT AND WITH [...] Sam Antunez M.D. MATTI: MATTI Report ID: [id number] Reading Location: [place] [address] Procedure Note Sam Antunez MD - 03/06/2024 [...] Sam Antunez M.D. MATTI: MATTI Report ID: [id number] Reading Location: [place] [address] Cristobal Mckinney MD IMG MRI PROCEDURES Gabriella l Result from Last 3 Months Insurance [facility] Advance Directives For more information, please contact: [phone] * Full Code (Latest Code Status on File) Date Activated Date Inactivated Comments 07/13/2020 7:10 AM 07/17/2020 5:28 PM * Full Code Date Activated Date Inactivated Comments 07/02/2020 10:50 PM 07/09/2020 7:07 PM Care Teams Supervisor Functional Testing Relationship Specialty Start Date End Date Alma Wan MD [address] [place] [address] PCP - General Internal Medicine 09/05/23
--- OUTSIDE RECORDS SUMMARY | 2024-05-25 17:57 | XMS_ITS | Referral Summary ---
Author Organization [facility] Virtual Care Address [facility] [place] [address] Phone Care Team Providers Care Front Desk Admin Name Role Phone Alma Wan MD Primary Care Provider [phone] Encounters Date Type Department Care Team Description 05/07/2024 Telephone [facility] [address] [place] [address] Cristobal Mckinney MD 05/07/2024 Orders Only [facility] Neurology [address] [place] [address] Cristobal Mckinney MD Chronic migraine without aura without status migrainosus, not intractable (Primary Dx) 05/05/2024 11:15 AM CDT Office Visit [facility] [address] [place] [address] [address] [place] [address] Cristobal Mckinney MD MS (multiple sclerosis) (HCC) (Primary Dx); Chronic migraine without aura without status migrainosus, not intractable 03/16/2024 8:37 AM EXTENSION SUPERVISOR - 03/16/2024 11:59 PM EXTENSION SUPERVISOR Hospital Encounter [facility] Neurology Testing [address] [place] [address] Numbness and tingling of upper and lower extremities of both sides (Primary Dx); MS (multiple sclerosis) (HCC) Discharge Disposition: Discharge to home or self care 03/11/2024 Telephone [facility] [address] [place] [phone] Alma Wan MD Locking up 03/06/2024 Telephone [facility] [place] [address] [place] [phone] Michelle Adler CMA 03/06/2024 1:22 PM EXTENSION SUPERVISOR - 03/06/2024 11:59 PM EXTENSION SUPERVISOR Hospital Encounter [facility] [address] [place] [address] MS (multiple sclerosis) (HCC) Discharge Disposition: Discharge to home or self care 03/06/2024 1:22 PM EXTENSION SUPERVISOR - 03/06/2024 11:59 PM EXTENSION SUPERVISOR Hospital Encounter [facility] [address] [place] [address] MS (multiple sclerosis) (HCC) Discharge Disposition: Discharge [...] 128/84 Assessment & Plan (04/05/2023 3:10 PM EXTENSION SUPERVISOR): Mildly elevated in office today. No hx [...] 01/16/2023 Assessment & Plan (01/16/2023 2:48 PM EXTENSION SUPERVISOR): Chronic for 1-2 years per patient account. [...] Her pain management providers are in [place] and also give her oxycodone. We previously referred her to [facility] psychiatry but have not received any follow-up [...] refills. We referred her to psychiatry at [facility] per her request. We will see her back here in three months, or sooner if needed. Assessment & Plan (01/16/2023 2:56 PM EXTENSION SUPERVISOR): Chronic and ongoing. Patient current out of [...] x 2.1 cm reported on brain MRI, [facility]. Assessment & Plan (10/04/2023 3:33 PM CDT): New diagnosis as of about eight months ago as far as I can tell. MRI at [facility] reported a left hemispheric 4 x 2 cm meningioma. The patient has chronic headaches. She will need follow-up with Neurology to determine any relationship or needed treatment. We are trying to expedite that appointment for her. Assessment & Plan (09/05/2023 3:52 PM CDT): Chronic, unknown status. 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 Those images have been downloaded into her chart but there is no report. I reviewed multiple images personally and do not see any obvious meningioma. We are referring her to neurology. Follow-up imaging or other evaluation may be needed given her history of chronic headaches. Assessment & Plan (01/16/2023 2:58 PM EXTENSION SUPERVISOR): Noted on CT 11/2022. Will request notes. [...] this condition including the initial one at [facility] (previously said to have been done at [facility]), followed by evaluation in [place], [place] a few years ago, and more recently at [facility] in [place] last November. I reviewed available records dating back to 06/01/2011 (Clinical Desktop) but am unable to find results of a lumbar puncture. We requested records from [place] and [facility]. I independently interpreted multiple imaging reports of the spinal cord, brain and orbits obtained over the years including MRI of the cervical spine and brain done at [facility] in November and at this time I [...] (multiple sclerosis) 08/12/2011 Overview (10/04/2023): Diagnosed at [facility] with MRI, LP per patient report. MR imaging of brain and spinal cord in 2012 negative for evidence of multiple sclerosis. MR images of brain and cervical cord negative for evidence of demyelinating disease, November 2022, [facility]. Assessment & Plan (09/15/2023 3:31 PM CDT): Chronic, status unknown. She reports being diagnosed with multiple sclerosis at [facility] in 2011. Details are not available. She [...] The most recent MRI imaging available from [facility] about nine months ago has no associated report. I personally reviewed and interpreted the images and I do not see any obvious evidence of active multiple sclerosis in the brain. We referred her to Neurology, Dr. Mckinney, who apparently saw her in the past when she was first diagnosed. Assessment & Plan (04/05/2023 4:02 PM EXTENSION SUPERVISOR): Chronic. Now with complaint of tremor. New [...] Likely erroneous entry, MRI C-spine 11/17/2022 at [facility] notable for mild degenerative changes. Assessment & Plan (01/16/2023 2:57 PM EXTENSION SUPERVISOR): Chronic and ongoing. Patient is aware that [...] condition. She says she was evaluated at [place] in 2013 and has had additional evaluations in [place] and at [facility]. We are trying to gather the records. [...] in 1-2 weeks from discharge locally ([facility] can be reached at [phone]) or at home in [place]. Will need repeat dilated examination and OCT [...] on file Legal Sex Female 1:46 AM EXTENSION SUPERVISOR Gender Identity Not on file Sexual Orientation [...] Diagnosis Comments EMG/NCV Routine 03/16/2024 11:06 AM EXTENSION SUPERVISOR MS (multiple sclerosis) (HCC) MRI BRAIN W WO CONTRAST Schedule RAJESH, Read Routine (Patient lives out of area) 03/06/2024 3:21 PM EXTENSION SUPERVISOR MS (multiple sclerosis) (HCC) MRI CERVICAL SPINE W WO CONTRAST Schedule RAJESH, Read Routine (Patient lives out of area) 03/06/2024 2:56 PM EXTENSION SUPERVISOR MS (multiple sclerosis) (HCC) from Last 3 Months Results * EMG/NCV - (03/16/2024 11:06 AM EXTENSION SUPERVISOR) Anatomical Region Laterality Modality EMG Impressions 03/16/2024 11:06 AM EXTENSION SUPERVISOR History: This is a 43 years old [...] Brain W WO Contrast (03/06/2024 3:21 PM EXTENSION SUPERVISOR) Anatomical Region Laterality Modality Head and Neck N/A Magnetic Resonan ce 03/06/2024 3:24 PM EXTENSION SUPERVISOR Narrative 03/06/2024 3:43 PM EXTENSION SUPERVISOR EXAM DESCRIPTION: MRI BRAIN WITHOUT AND WITH [...] Sam Antunez M.D. MATTI: MATTI Report ID: [id number] Reading Location: [place] [address] Procedure Note Sam Antunez MD - 03/06/2024 [...] Sam Antunez M.D. MATTI: MATTI Report ID: [id number] Reading Location: [place] [address] Cristobal Mckinney MD IMG MRI PROCEDURES Gabriella l Result * MRI Cervical Spine W WO Contrast (03/06/2024 2:56 PM EXTENSION SUPERVISOR) Anatomical Region Laterality Modality Spine N/A Magnetic Resonan ce 03/06/2024 3:24 PM EXTENSION SUPERVISOR Narrative 03/06/2024 3:43 PM EXTENSION SUPERVISOR EXAM DESCRIPTION: MRI BRAIN WITHOUT AND WITH [...] Sam Antunez M.D. MATTI: MATTI Report ID: [id number] Reading Location: [place] [address] Procedure Note Sam Antunez MD - 03/06/2024 [...] Sam Antunez M.D. MATTI: MATTI Report ID: [id number] Reading Location: [place] [address] Cristobal Mckinney MD IMG MRI PROCEDURES Gabriella l Result from Last 3 Months Insurance [facility] [employer] [facility] Advance Directives For more information, please contact: [phone] * Full Code (Latest Code Status on File) Date Activated Date Inactivated Comments 07/13/2020 7:10 AM 07/17/2020 5:28 PM * Full Code Date Activated Date Inactivated Comments 07/02/2020 10:50 PM 07/09/2020 7:07 PM Care Teams Front Desk Admin Relationship Specialty Start Date End Date Alma Wan MD [address] [place] [address] PCP - General Internal Medicine 09/05/23
--- OUTSIDE RECORDS SUMMARY | 2024-05-25 17:57 | XMS_ITS | Clinical Summary ---
Author Organization [facility] Address [address] [place] [address] Care Team Providers Care Crusher Tender Name Role Phone Maxine Payne Primary Care Provider [phone] Source Comments [facility],non-owned Affiliates and Associated Physician Practices is amultiple site organization consisting of ambulatory clinics and hospital sitesin [place], [place], [place] and [place]. This disclosure is being madepursuant to the Care Everywhere program and may not contain all information available regarding this patient. Last updated 17.[facility] Allergies Active Allergy Reactions Criticality Noted Date [...] document. Alwaysverify current medications with the patient. DULoxetine (Cymbalta) 60 MG capsuleIndicati ons:Major Depressive Disorder Take 1 (one) capsule by mouth 2 times daily Reasons: Major Depressive Disorder Active pantoprazole EC (Protonix) 40 MG tablet Take 1 (one) tablet by mouth once daily Active cyanocobalamin (Vitamin B-12) injection Inject 1,000 (one thousand) mcg into muscle every 7 days Active oxyCODONE-aceta minophen (Percocet) 10-325 MG tabletIndicatio ns:Abdominal pain, unspecified abdominal location Take 1 (one) tablet by mouth every 6 hours as needed for Pain 10 tablet 4 Active oxyCODONE, immediate release, (Roxicodone) 10 MG tabletIndicatio ns:Unspecified intestinal obstruction, unspecified as to partial versus complete obstruction (HCC) TAKE ONE TABLET BY MOUTH EVERY 6 HOURS NEEDED 20 tablet 4 Active acetaminophen (Tylenol) 325 MG tablet TAKE 3 TABLETS BY MOUTH EVERY 6 HOURS NEEDED FOR FEVER OR PAIN. MAXIMUM ALLOWABLE ACETAMINOPHEN AMOUNT: 4 GRAMS (4,000MG) PER 24 HOURS. 60 tablet 4 Active ondansetron, disintegrating, (Zofran ODT) 4 MG tablet DISSOLVE 1 TABLET ON THE TONGUE EVERY 6 HOURS NEEDED FOR NAUSEA/VOMITING 20 tablet 4 Active ibuprofen (Motrin) 400 MG tablet TAKE ONE TABLET BY MOUTH EVERY 6 HOURS 60 tablet 4 Active cyclobenzaprine (Flexeril) 10 MG tablet TAKE ONE TABLET BY MOUTH 3 TIMES A DAY NEEDED FOR MUSCLE SPASMS 20 tablet 4 Active Active Problems Problem Noted Date [...] and heating? Not hard at all 04/19/2023 [facility] - Occupational Stress [...] place to sleep or slept in a skilled nursing (including now)? No 04/19/2023 Comments No Sex and Gender Information Value Date Recorded Sex Assigned at Not on file Legal Sex Female 5:33 AM TRAINING LEAD Gender Identity Not on file Sexual Orientation [...] Health Maintenance Due Date Last Done Comments PAULINE (AGES 45-75) - COLON CA SCREENING 1978 [...] 3-dose series) 1997 COVID-19 VACCINE (1 - 2023- season) 2023 DEPRESSION SCREENING 02/12/2024 INFLUENZA VACCINE (Season Ended) 2024 SCREENING FOR DIABETES 05/02/2026 4, 05/02/2023, 05/01/2023, Additional history exists ZOSTER VACCINE [...] - 26 mg/dL 05/03/2023 4:31 AM CDT [facility] Creatinine 0.66 0.56 - 0.96 mg/dL 05/03/2023 4:31 AM T [facility] Sodium 138 136 - 145 mmol/L 05/03/2023 4:[facility] Potassium 3.0(L) 3.5 - 4.5 mmol/L 05/03/2023 4:31 AM [facility] Chloride 103 98 - 107 mmol/L 05/03/2023 4:31 AM [facility] CO2 23 22 - 29 mmol/L 05/03/2023 4:31 AM [facility] Glucose 96 70 - 115 mg/dL 05/03/2023 4:31 AM [facility] Calcium 8.9 8.4 - 10.2 mg/dL 05/03/2023 4:31 AM [facility] Anion Gap 12 6 - 16 05/03/2023 4:31 AM [facility] BUN/Creatinine Ratio 17 7 - 23 05/03/2023 4:31 AM [facility] Osmolality Calculated 285 275 - 295 mOsm/kg 05/03/2023 4:31 AM [facility] eGFR by CKD-EPI >90 >=90 mL/min/1.7 3 m2 05/03/2023 4:31 AM [facility] Blood BLOOD SPECIMEN / Unknown Lab Venipuncture / Unknown 05/03/2023 2:35 AM CDT 05/03/2023 3:54 AM T Rizwan Rosa MD LAB - CHEMISTRY ORDERABLES F inal Result [facility] [address] [place] [address], [facility] [phone] from Last 3 Months or Most Recently Relevant to Health Maintenance Insurance [facility] Advance Directives * Full Code (Latest Code Status on File) Date Activated Date Inactivated Comments 04/19/2023 9:20 PM 05/03/2023 12:35 PM * Full Code Date Activated Date Inactivated Comments 04/19/2023 9:20 PM 04/19/2023 9:20 PM * Full Code Date Activated Date Inactivated Comments 04/08/2023 2:39 AM 04/10/2023 7:32 PM Care Teams Crusher Tender Relationship Specialty Start Date End Date Maxine Payne [address] [place] [address] PCP - General 04/09/23
[2024-05-25 18:09] LABS: Alanine Aminotransferase 28 U/L (14-59); Albumin Level 3.3 g/dL (3.4-5.0); Alkaline Phosphatase 122 U/L (46-116); Anion Gap 6 mmol/L (4-12); Aspartate Amino Transferase 24 U/L (15-37); Bilirubin,Total 0.6 mg/dL (0.00-1.00); Blood Urea Nitrogen 10 mg/dL (7-18); Calcium 8.6 mg/dL (8.5-10.1); Carbon Dioxide 30 mmol/L (21-32); Chloride 95 mmol/L (98-108); Estimated CRCL calculation 84 ml/min; Estimated Glomerular Filt Rate > 60; Glucose 133 mg/dL (70-99); Osmolality Calculated 273 mOsm/kg (285-295); Potassium 2.8 mmol/L (3.5-5.1); Sodium 131 mmol/L (136-145); Total Protein 7.3 g/dL (6.4-8.2)
--- NOTE | 2024-05-25 18:20 | PC.NURSE ---
pt is requesting nausea medication and something else for pain at this time. erp is notified, awaiting further orders. pt is leaving for [place] at this time. will continue to monitor.
[2024-05-25] MEDS: ONDANSETRON INJ 4 MG/2 ML VIAL IV PUSH (18:36)
[2024-05-25] MEDS: POTASSIUM CHLORIDE 20 MEQ ER TABLET 40 MEQ PO (18:38)
[2024-05-25] MEDS: MORPHINE SULFATE (*CRX) 4 MG/ML INJ IV PUSH (18:39)
--- NOTE | 2024-05-25 18:54 | PC.NURSE ---
PT IS SITTING UP ON STRETCHER IN EXAM ROOM AWAITING RESULTS AT THIS TIME. PT REPORTS SHE HAS A RIDE HOME AND WILL NOT BE DRIVING DUE TO MORPHINE ADMINISTRATION. DENIES ANY OTHER NEEDS OR COMPLAINTS. WILL CONTINUE TO MONITOR.
[2024-05-25 19:36] VITALS: BP 145/91; PULSE 94; RESP 18; TEMP 36.7; O2SAT 98
== END 2024-05-25 19:39 | disposition home or self-care (01) ==
PROVIDERS: Emergency Provider Emergency Medicine; PCP Internal Medicine Infectious Disease
DX: K02.9 Dental caries, unspecified (principal); L03.818 Cellulitis of other sites; F17.210 Nicotine dependence, cigarettes, uncomplicated; Z86.73 Personal history of transient ischemic attack (TIA), and cerebral infarction without residual deficits
CPT/HCPCS: 36415; 70487; 80053; 85025; 87040; 96365; 96375; 99284; A9270; J1885; J2270; J2405; Q9967

== ENCOUNTER 2024-08-14 15:28 | Emergency (ER) | payer OTHER, SELFPAY ==
--- NOTE | ~2024-08-14 | XR_ITS ---
HISTORY: fall on knee ant pain/injury COMPARISON: None TECHNIQUE: 4 views of the left knee were performed FINDINGS: No acute or subacute fracture. Significant medial and lateral tibiofemoral joint space narrowing is identified with osteophytic ridg ing. No suprapatellar joint effusion is identified. The infrapatellar joint space is clear. IMPRESSION: Degenerative disease, without acute fracture. Reviewed, dictated and finalized at location A.
--- NOTE | 2024-08-14 15:29 | ED.LOWEXIN ---
HPI - Extremity Injury (Lower) General Chief Complaint: Extremity Injury, Lower Stated Complaint: left knee pain Time Seen by Provider: 08/14/24 15:29 Source: patient Mode of arrival: ambulatory Limitations: no limitations History of Present Illness HPI Narrative: Fang is a 44-year-old female patient presenting to the clinic today with complaints left knee pain/injury. She reports she has fallen twice on her left knee yesterday. Is having pain over her lateral patella. Thinks she may have a cracked patella. States the pain is worse with walking and is shooting into the posterior knee. Rates her pain currently 6/10. History of CVA and MS. Related Data Home Medications ?Medication ?Instructions ?Recorded ?Confirmed ?Last Taken ?Type cyclobenzaprine 10 mg tablet 10 mg PO TID PRN Muscle Spasm 12/23/20 11/15/22 11/14/22 History duloxetine 60 mg capsule,delayed 60 mg PO BID 01/19/22 11/15/22 11/15/22 History release mecobalamin (vitamin B12) 10,000 5,000 mcg IM WEEKLY 01/19/22 11/15/22 1 Week Ago History mcg solution for injection ~11/08/22 ergocalciferol (vitamin D2) 1,250 05/17/24 Unknown History mcg (50,000 unit) capsule Allergies Allergy/AdvReac Type Severity Reaction Status Date / Time methocarbamol (From Robaxin) Allergy Severe Anaphylactic Verified 05/25/24 17:26 Shock adhesive Allergy Unknown RASH Verified 05/25/24 17:26 latex Allergy Unknown RASH ON Verified 05/25/24 17:26 HANDS gabapentin Allergy Anxiety Verified 05/25/24 17:26 Review of Systems Review of Systems: Pertinent positives per HPI. Patient denies any fever, chills, rash, headache, visual changes, dizziness, cough, runny nose, sore throat, shortness of breath, chest pain, palpitations, nausea, vomiting, diarrhea, constipation, abdominal pain, or any urinary issues. [facility] Past Medical History Medical History CVA (cerebral vascular accident) Hemiplegic migraine Multiple sclerosis GERD (gastroesophageal reflux disease) History of dental problems Short bowel syndrome Surgical History Surgical History History of ear surgery left reports all bones removed Hx of cholecystectomy History of hysterectomy Previous section x3 History of bowel resection x9 Family History Family History Mother Family history of malignant neoplasm of cervix Family history of malignant neoplasm of breast in first degree relative Grandparent Family history of malignant neoplasm of breast Other Diabetes mellitus Family history of coronary artery disease Hypertension Social History Social History Smoking packs per day: 0.75 Smoking cigarettes per day: 15.0 Years smoked: 30 Smoking pack-years: 22.50 Smoking status: Current every day smoker Tobacco type: cigarettes Alcohol intake: never Substance use: never Substance use type: does not use Lack of Transportation: No Lack of Food: Never True Current Housing: I Have Housing Concerned About Future Housing: No Difficulty Paying Gas/Electric Bills: No Difficulty Paying for Meds: No Currently Unemployed: No Education: High School Diploma/GED Difficulty w/ Childcare or Family Care: No Spiritual care concerns: No Comments At the time of my signature, I reviewed and agree with the nursing past medical, surgical, social, and family history. There is no relevant family history pertinent to the patient complaint. Exam Narrative: General: Well-developed, morbidly obese, in no apparent distress Head: Normocephalic, atraumatic. Cardio: Regular rate and rhythm, s1 and s2 normal, no murmur appreciated. Resp: Clear to auscultation bilaterally, no rhonchi, rales, wheezing or rubs. Musculoskeletal: No deformity, tender to palpation over the lateral left patella, grossly normal range of motion, pain with full extension and flexion of the left knee, muscle strength strong and equal, peripheral pulse strong, no edema, no cyanosis, normal gait and station Course Course Emergency Course: Portions of this record may have been created with voice recognition software. Level of Care: Express Care Visit Vital Signs Vital signs: Vital Signs Temperature 36.4 C L 08/14/24 15:34 Pulse Rate 105 H 08/14/24 15:34 Respiratory Rate 16 08/14/24 15:34 Blood Pressure 134/82 08/14/24 15:34 Pulse Oximetry 99 08/14/24 15:34 Oxygen Delivery Room Air 08/14/24 15:34 Temperature 36.4 C L 08/14/24 15:34 Pulse Rate 105 H 08/14/24 15:34 Respiratory Rate 16 08/14/24 15:34 Blood Pressure 134/82 08/14/24 15:34 Pulse Oximetry 99 08/14/24 15:34 Oxygen Delivery Room Air 08/14/24 15:34 Vital signs reviewed MDM - Extremity Injury (Lower) MDM Narrative Medical decision making narrative: At the time of visit patient is resting comfortably on the exam table. Patient appears to be nontoxic. Diagnostics: X-ray of the left knee was negative for any sign of fracture or malalignment. Does show some degenerative changes Plan: I suspect patient has a left knee contusion. Shilo wrap was applied. Supportive measures were discussed with the patient and they voiced understanding discharge instructions and agrees to treatment plan. Return precautions reviewed Differential Diagnosis Differential diagnosis: Likely acute internal derangement of knee and other (Patella fracture, knee contusion, knee sprain) Imaging Data Radiologist's impression: ITS Impressions Knee X-Ray 08/14/24 15:45 IMPRESSION: Degenerative disease, without acute fracture. Discharge Plan Discharge Clinical Impression: Contusion of knee, left Qualifiers: Encounter type: initial encounter Qualified Code(s): S80.02XA - Contusion of left knee, initial encounter Osteoarthritis of knee Qualifiers: Osteoarthritis type: primary Laterality: left Qualified Code(s): M17.12 - Unilateral primary osteoarthritis, left knee Patient Disposition: Home Condition: Stable Instructions: Antibiotic Form, Contusion in Adults (ED), Knee Pain (ED) Additional Instructions: X-rays negative for any sign of fracture or malalignment the left knee. Does show some osteoarthritis Rest, ice, elevate, and wear shilo wrap as directed Tylenol for pain as discussed. May apply Aspercreme, blue emu, or lidocaine to the affected area Gradually bear weight No running or sports until healed. Follow up with your PCP if symptoms persist more than 1 week. Patient Language: Barbadian Prescriptions: No Action cyclobenzaprine 10 mg tablet 10 mg PO TID PRN (Reason: Muscle Spasm) duloxetine 60 mg Capsule,Delayed Release(Dr/Ec) 60 mg PO BID mecobalamin (vitamin B12) 10,000 mcg Recon Soln 5,000 mcg IM WEEKLY ergocalciferol (vitamin D2) 1,250 mcg (50,000 unit) capsule lidocaine HCl [Lidocaine Viscous] 2 % solution 1 applic mucous membrane QID PRN (Reason: pain) Qty: 100 0RF Rx Instructions: apply with Q tip to gum area Follow-up/Referrals: Savage,Emiliano Moulton MD [Primary Care Provider] - Time of Disposition: 15:55 Quality NIHSS Nursing Documentation ED NIHSS nursing documentation: reviewed/agree
--- OUTSIDE RECORDS SUMMARY | 2024-08-14 15:30 | XMS_ITS | Encounter Summary ---
Author Organization [facility] Healthcare Address [address] [place] [address] Care Team Providers Care Director Of Business Applications Name Role Phone Miscellaneous, Not In File Primary Care Provider Unavailable No, Physician Primary Care Provider [phone] Maxine Payne MD Primary Care Provider [phone] Emiliano Wan MD Primary Care Provider [phone] Encounter Details Date Type Department Care Team (Latest Contact Info) Description 07/08/2020 Ophth Exam Ophthalmology Fang Ohara MD PhD [address] [place] [address] Social History Tobacco Use Types Packs/Day Years Used Date Smoking Tobacco: Every Day Cigarettes Comments No Sex and Gender Information Value Date Recorded Sex Assigned at Not on file 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 Gender Identity Not on file Sexual Orientation [...] Right eye Left eye Ishihara 01/22 01/22 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
--- OUTSIDE RECORDS SUMMARY | 2024-08-14 15:30 | XMS_ITS | Referral Summary ---
Author Organization [facility] Virtual Care Address [address] [place] [id number] Phone Care Team Providers Care Facing Cutting Machine Operator Name Role Phone Alma Wan MD Primary Care Provider [phone] Encounters Date Type Department Care Team Description 08/12/2024 Telephone [facility] Medical [facility] [address] [place] [address] Alma Wan MD 07/23/2024 1:30 PM CDT Office Visit [facility] [address] [facility] [address] [place] [address] Alma Wan MD Bipolar disorder with moderate depression (HCC) (Primary Dx); Meningioma (HCC); Morbid obesity with BMI of 45.0-49.9, adult (HCC); Elevated blood-pressure reading without diagnosis of hypertension; Vertigo; Chronic nausea; Need for hepatitis C screening test; Need for hepatitis B screening test; B12 deficiency; Annual visit for general adult medical examination with abnormal findings 07/17/2024 10:45 AM CDT Procedure visit [facility] [address] [place] [address] [address] [place] [address] Cristobal Mckinney MD Chronic migraine without aura without status migrainosus, not intractable 07/09/2024 Telephone [facility] [address] [place] [address] [address] [place] [address] Cristobal Mckinney MD 06/01/2024 Telephone [facility] [place] [facility] [address] [place] [address] Alma Wan MD 06/01/2024 Results [facility] [address] [place] [address] Alma Wan MD SCAN - LABS 05/25/2024 Orders Only [facility] Health Information Management [address] [place] [address] Alma Wan MD from Last 3 Months Allergies Active Allergy Reactions Criticality Noted Date Comments Gabapentin Other (See comments) Low 07/06/2020 Makes her suicidal Suicidal Methocarbamol Shortness of breath,Anaphylaxis,Other (See comments) High 07/06/2020 Pt states that she went white and couldn't breath Unknown Medications pantoprazole DR (PROTONIX) 40 mg EC tabletIndication s:Dyspepsia Take 1 tablet (40 mg total) by mouth daily as needed (heartburn) 30 tablet 5 Active syringe with needle, safety (BD Integra Syringe) 3 mL 23 gauge x 1 syringeIndicatio ns:B12 deficiency Use to inject Vitamin B12 once every 30 days [address] (CYMBALTA) 60 mg capsuleIndicatio ns:Bipolar disorder with moderate depression (HCC) Take 1 capsule (60 mg total) by mouth 2 (two) times a day 60 capsule 5 Active cyclobenzaprine (FLEXERIL) 10 mg tabletIndication s:Muscle Spasm Take 1 tablet (10 mg total) by mouth 2 (two) times a day as needed for muscle spasms 60 tablet 5 024 Active cyanocobalamin (Vitamin B-12) 1,000 mcg/mL injectionIndicat ions:B12 deficiency INJECT 1 ML INTRAMUSCULARLY INSTRUCTED EVERY 30 DAYS 1 mL 025 Active meclizine (ANTIVERT) 25 mg tabletIndication s:Vertigo Take 1 tablet (25 mg total) by mouth 3 (three) times a day as needed for dizziness 025 Active ondansetron ODT (ZOFRAN-ODT) 4 mg disintegrating tabletIndication s:Nausea and Vomiting Take 1 tablet (4 mg total) by mouth every 6 (six) hours as needed for nausea or vomiting 025 Active acetaminophen (TYLENOL) 325 mg tablet Take 1,000 mg by mouth every 6 (six) hours 024 2024 Discontinued( No longer taking - Do not display on AVS) naloxone (NARCAN) 4 mg/actuation spray,non-aeroso l Administer 1 spray into affected nostril(s) as needed 023 2024 Discontinued( No longer taking - Do not display on AVS) oxyCODONE (ROXICODONE) 10 mg tablet Take 1 tablet (10 mg total) by mouth every 6 (six) hours as needed for pain Pain treatment [facility]. 024 2024 Discontinued( No longer taking - Do not display on AVS) meclizine (ANTIVERT) 25 mg tabletIndication s:Vertigo Take 1 tablet (25 mg total) by mouth 3 (three) times a day as needed for dizziness 60 tablet 5 024 2024 Discontinued ondansetron ODT (ZOFRAN-ODT) 4 mg disintegrating tabletIndication s:Nausea and Vomiting Take 1 tablet (4 mg total) by mouth every 6 (six) hours as needed for nausea or vomiting 60 tablet 3 024 2024 Discontinued cyanocobalamin (Vitamin B-12) 1,000 mcg/mL injectionIndicat ions:B12 deficiency INJECT 1 ML (CC) INTRAMUSCULARLY INSTRUCTED EVERY 30 DAYS 1 mL 025 2024 Discontinued Hospital, Clinic, or Other Facility Administered Medication Ordered Dose Route Frequency Start Date End Date Status onabotulinumtoxin A (BOTOX) 200 unit injection 200 UnitsIndications:Chronic migraine without aura without status migrainosus, not intractable 200 Units OTHER Once 07/17/2024 07/17/2024 Ended Active Problems Problem Noted Date Diagnosed Date [...] [facility] Chronic nausea 09/05/2023 Assessment & Plan (07/23/2024 2:15 PM CDT): Chronic, present for about a year and expected to last intermittently for more than a year. She does not take ondansetron every day but she has it on hand for use as needed. She reports having short bowel syndrome from multiple past bowel resections. Abdominal exam today is benign. Assessment & Plan (09/05/2023 3:50 PM CDT): [...] diagnosis of hypertension 04/05/2023 Assessment & Plan (07/23/2024 2:16 PM CDT): Chronic, first noted a little over year ago but blood pressure readings recently have been relatively normal with a mild elevation of systolic and borderline diastolic today. Recommend continued monitoring with regular office visits. BP Readings from Last 3 Encounters: 07/23/24 142/86 07/17/24 128/81 05/05/24 134/82 Assessment & Plan (09/05/2023 3:51 PM CDT): Chronic, currently somewhat improved but still borderline. She does not take any medication for blood pressure. We will see her back in three months. BP Readings from Last 3 Encounters: 09/05/23 138/88 04/05/23 158/84 01/16/23 128/84 Assessment & Plan (04/05/2023 3:10 PM FACE BOSS): Mildly elevated in office today. No hx of HTN - Low salt diet - Should work on weight loss - Re-eval at f/u Vertigo 02/11/2023 Overview (09/05/2023): Paroxysmal with movement and spontaneously, lasts 45'-2h. Associated vomiting. Meclizine helps a little. Assessment & Plan (07/23/2024 2:17 PM CDT): Chronic/intermittent, last attack was several months ago. She has meclizine on hand for use as needed. Continue same. Assessment & Plan (10/05/2023 1:24 PM CDT): [...] Morbid obesity with BMI of 45.0-49.9, adult 01/12 Assessment & Plan (07/23/2024 2:17 PM CDT): Chronic, uncontrolled with no significant change in her BMI. We recommended attention to her diet. Assessment & Plan (12/11/2023 9:33 AM CDT): [...] 01/16/2023 Assessment & Plan (01/16/2023 2:48 PM FACE BOSS): Chronic for 1-2 years per patient account. Referred to GI to establish care. Continue current regime for now Bipolar disorder with moderate depression 2022 Overview (09/05/2023): >>OVERVIEW FOR RECURRENT MAJOR DEPRESSION (HCC) WRITTEN ON 09/05/2023 4:29 AM BY ALMA WAN MD Details lacking. Assessment & Plan (07/23/2024 2:15 PM CDT): Can use to struggle with her mood despite taking duloxetine 60 mg twice daily. She is trying to find a psychiatrist to discuss her issues. It sounds like she has an overactive mind with trouble focusing, possibly some OCD tendencies. We recommended counseling as well. Return in three months. Assessment & Plan (10/05/2023 1:26 PM CDT): Chronic, unknown duration but likely years. She is on duloxetine for mood and pain. Her pain management providers are in [place] and also give her oxycodone. We previously referred her to [facility] psychiatry but have not received any follow-up [...] refills. We referred her to psychiatry at [facility] per her request. We will see her back here in three months, or sooner if needed. Assessment & Plan (01/16/2023 2:56 PM FACE BOSS): Chronic and ongoing. Patient current out of [...] x 2.1 cm reported on brain MRI, [facility]. Assessment & Plan (07/23/2024 2:17 PM CDT): Chronic, diagnosed about 18 months ago and clinically silent at this time. We will continue to monitor with regular office visits. Assessment & Plan (10/04/2023 3:33 PM CDT): New diagnosis as of about eight months ago as far as I can tell. MRI at [facility] reported a left hemispheric 4 x 2 cm meningioma. The patient has chronic headaches. She will need follow-up with Neurology to determine any relationship or needed treatment. We are trying to expedite that appointment for her. Assessment & Plan (09/05/2023 3:52 PM CDT): Chronic, unknown status. She reports a history of meningioma on RESPIRATORY THERAPY INSTRUCTOR imaging at [facility] in November 30, 2022. Those images have been downloaded into her chart but there is no report. I reviewed multiple images personally and do not see any obvious meningioma. We are referring her to neurology. Follow-up imaging or other evaluation may be needed given her history of chronic headaches. Assessment & Plan (01/16/2023 2:58 PM FACE BOSS): Noted on CT 11/2022. Will request notes. [...] resection of small bowel. Assessment & Plan (07/28/2024 8:39 PM CDT): There was an interruption in therapy. Recommend she resume at least monthly injections for probable malabsorption of B12 due to short gut syndrome. Assessment & Plan (12/11/2023 9:35 AM CDT): [...] this condition including the initial one at [facility] (previously said to have been done at [facility]), followed by evaluation in [place], [place] a few years ago, and more recently at [facility] in [place] last November. I reviewed available records dating back to 06/01/2011 (Clinical Desktop) but am unable to find results of a lumbar puncture. We requested records from [place] and [facility]. I independently interpreted multiple imaging reports of the spinal cord, brain and orbits obtained over the years including MRI of the cervical spine and brain done at [facility] in November and at this time [...] (multiple sclerosis) 08/12/2011 Overview (10/04/2023): Diagnosed at [facility] with MRI, LP per patient report. MR imaging of brain and spinal cord in 2012 negative for evidence of multiple sclerosis. MR images of brain and cervical cord negative for evidence of demyelinating disease, November 2022, [facility]. Assessment & Plan (09/15/2023 3:31 PM CDT): Chronic, status unknown. She reports being diagnosed with multiple sclerosis at [facility] in 2011. Details are not [...] The most recent MRI imaging available from [facility] about nine months ago has no associated report. I personally reviewed and interpreted the images and I do not see any obvious evidence of active multiple sclerosis in the brain. We referred her to Neurology, Dr. Mckinney, who apparently saw her in the past when she was first diagnosed. Assessment & Plan (04/05/2023 4:02 PM FACE BOSS): Chronic. Now with complaint of tremor. New [...] Likely erroneous entry, MRI C-spine 11/17/2022 at [facility] notable for mild degenerative changes. Assessment & Plan (01/16/2023 2:57 PM FACE BOSS): Chronic and ongoing. Patient is aware that [...] condition. She says she was evaluated at [facility] in 2012 and has had additional evaluations in [place] and at [facility]. We are trying to gather the [...] in 1-2 weeks from discharge locally ([facility] can be reached at [phone]) or at home in [place]. Will need repeat dilated examination and OCT [...] lacking. Dyspepsia 07/05/2020 12/11/2023 Small bowel obstruction 07/02/202009/12 Overview (10/04/2023): Nonoperative management, Martha, Assessment & [...] on file Legal Sex Female 1:46 AM FACE BOSS Gender Identity Not on file Sexual Orientation Not on file Last Filed Vital Signs Vital Sign Reading Time Taken Comments Blood Pressure 142/86 07/23/2024 1:23 PM CDT Pulse 114 07/23/2024 1:23 PM CDT Temperature 36.7 C (98 F) 07/23/2024 1:23 PM CDT Respiratory Rate 16 07/23/2024 1:23 PM CDT Oxygen Saturation 98% 07/23/2024 1:23 PM CDT Inhaled Oxygen Concentration - - Weight 120.3 kg (265 lb 3.2 oz) 07/23/2024 1:23 PM CDT Height 157.5 cm (5' 2.01) 07/23/2024 1:23 PM CD T Body Mass Index 48.49 07/23/2024 1:23 PM CDT Plan of Treatment Not on file Procedures Procedure Name Priority Date/Time Associated Diagnosis Comments SCAN - LABS 05/25/2024 from Last 3 Months Results * SCAN - LABS (05/25/2024) Alma Wan MD Edited Result - Final from Last 3 Months Insurance Advance Directives For more information, please contact: [phone] * Full Code (Latest Code Status on File) Date Activated Date Inactivated Comments 07/13/2020 7:10 AM 07/17/2020 5:28 PM * Full Code Date Activated Date Inactivated Comments 07/02/2020 10:50 PM 07/09/2020 7:07 PM Care Teams Facing Cutting Machine Operator Relationship Specialty Start Date End Date Alma Wan MD [address] [place] [address] PCP - General Internal Medicine 09/05/23
--- OUTSIDE RECORDS SUMMARY | 2024-08-14 15:30 | XMS_ITS | Clinical Summary ---
Author Organization [facility] Address [address] [place] [address] Care Team Providers Care Car Worker Name Role Phone Maxine Payne Primary Care Provider [phone] Source Comments [facility],non-owned Affiliates and Associated Physician Practices is amultiple site organization consisting of ambulatory clinics and hospital sitesin [place], [place], [place] and [place]. This disclosure is being madepursuant to the Care Everywhere program and may not contain all information available regarding this patient. Last updated 17.[facility] Allergies Active Allergy Reactions Criticality Noted Date [...] and heating? 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 Gender Identity Not on file Sexual [...] 9 PM CDT Height 165.1 cm (5' 5) 05/14/2023 2:59 PM CDT Body Mass Index [...] SCREENING 1978 LIPID TESTING 1978 MAMMOGRAM 1978 HIV SCREENING 1993 HEPATITIS C SCREENING 06/14/1996 DTAP/TDAP/TD VACCINES (1 - Tdap) 1997 HEPATITIS B VACCINE (1 of 3 - 19+ 3-dose series) 1997 PAP SMEAR 06/20/1999 COVID-19 VACCINE (1 - 2023- season) 2023 DEPRESSION SCREENING 02/12/2024 INFLUENZA VACCINE (#1) 2024 SCREENING FOR DIABETES 05/08/2026 4, 05/09/2023, 05/03/2023, Additional history exists ZOSTER VACCINE (1 of [...] - 26 mg/dL 05/03/2023 4:31 AM CDT [facility] Creatinine 0.66 0.56 - 0.96 mg/dL 05/03/2023 4:31 AM T [facility] Sodium 138 136 - 145 mmol/L 05/03[facility]2023 4:[facility] Potassium 3.0(L) 3.5 - 4.5 mmol/L 05/03/2023 4:31 AM [facility] Chloride 103 98 - 107 mmol/L 05/03/2023 4:31 AM [facility] CO2 23 22 - 29 mmol/L 05/03/2023 4:31 AM [facility] Glucose 96 70 - 115 mg/dL 05/03/2023 4:31 AM [facility] Calcium 8.9 8.4 - 10.2 mg/dL 05/03/2023 4:31 AM [facility] Anion Gap 12 6 - 16 05/03/2023 4:31 AM [facility] BUN/Creatinine Ratio 17 7 - 23 05/03/2023 4:31 AM [facility] Osmolality Calculated 285 275 - 295 mOsm/kg 05/03/2023 4:31 AM [facility] eGFR by CKD-EPI >90 >=90 mL/min/1.7 3 m2 05/03/2023 4:31 AM [facility] Blood BLOOD SPECIMEN / Unknown Lab Venipuncture / Unknown 05/03/2023 2:35 AM CDT 05/03/2023 3:54 AM T Rizwan Rosa MD LAB - CHEMISTRY ORDERABLES F inal Result [facility] [address] [place] [address], [facility] [phone] from Last 3 Months or Most Recently Relevant to Health Maintenance Insurance MEDICAID [facility] Advance Directives * Full Code (Latest Code Status on File) Date Activated Date Inactivated Comments 04/19/2023 9:20 PM 05/03/2023 12:35 PM * Full Code Date Activated Date Inactivated Comments 04/19/2023 9:20 PM 04/19/2023 9:20 PM * Full Code Date Activated Date Inactivated Comments 04/08/2023 2:39 AM 04/10/2023 7:32 PM Care Teams Car Worker Relationship Specialty Start Date End Date Maxine Payne [address] [place] [id number] PCP - General 04/09/23
--- OUTSIDE RECORDS SUMMARY | 2024-08-14 15:30 | XMS_ITS | Patient Health Record ---
Author Organization [facility] Address [address] [facility] [facility] [place] A ARCHIE Ramos [id number] Care Team Providers Care Bus Person Dishwasher Name Role Phone Amy Beltrán Unavailable [phone] Non [facility] Provider, Provider Unavailable Unavailable Reason For Referral No Information Plan Of Treatment No Information
--- OUTSIDE RECORDS SUMMARY | 2024-08-14 15:30 | XMS_ITS | Clinical Summary ---
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
--- OUTSIDE RECORDS SUMMARY | 2024-08-14 15:30 | XMS_ITS | Clinical Summary ---
Author Organization [facility] Address [address] [place] [address] Phone Care Team Providers Care Net Web Developer Name Role Phone Emiliano Wan MD Primary Care Provider [phone] Allergies Active Allergy Reactions Criticality Noted Date [...] Tablet 4 Active neomycin-polymy deb-hydrocortis one (CORTISPORIN) [id number] 3 Drops in right ear [...] Family History Medical History Relation Name Comments Osxh-Esuwnjshi-Doddc Syndrome Brother Hypertension Father Cancer Maternal Grandfather [...] drink = 0.6 oz pur e alcohol) [facility] Utilities Answer Date Recorded In the past 12 months has e electric, gas, oil, or water company threatened to shut off services in your home? Patient declined 09/20/2023 Social Connection and Isolation Panel Answer Date Recorded In a typical week, how many times do you talk on the phone with family, friends, or neighbors? Patient declined 09/19/2023 How often do you get togethe r with friends or relatives? Patient declined 09/19/2023 How often do you attend nondenominational or mandaen serv ices? Patient declined 09/19/2023 Do you belong to any clubs o r organizations such as nondenominational groups, unions, fraternal or athletic groups, or [...] and heating? Not hard at all 09/19/2023 [facility] ional Health - Occupational Stress [...] place to sleep or slept in a assisted (including now)? No 03/23/2023 Housing Stability Vital [...] [facility] the [facility] were you homeless or living in a assisted (including now)? Patient declined 09/20/2023 Sexually Active Control Partners Comments Yes Male Comments No Sex and Gender Information Value Date Recorded Sex Assigned at Not on file Legal Sex Female 9:46 PM CDT Gender Identity Not on file Sexual Orientation Not on file Last Filed Vital Signs Vital Sign Reading Time Taken Comments Blood Pressure 121/66 01/06/2024 9:30 PM BOOK ILLUSTRATOR Pulse 97 01/06/2024 9:30 PM BOOK ILLUSTRATOR Temperature 35.9 C (96.6 F) 01/06/2024 6:37 PM BOOK ILLUSTRATOR Respiratory Rate 18 01/06/2024 6:37 PM BOOK ILLUSTRATOR Oxygen Saturation 98% 01/06/2024 9:30 PM BOOK ILLUSTRATOR Inhaled Oxygen Concentration - - Weight 113.4 kg (250 lb) 01/06/2024 6:37 PM BOOK ILLUSTRATOR Height 157.5 cm (5' 2) 01/06/2024 6:37 PM BOOK ILLUSTRATOR Body Mass Index 45.73 01/06/2024 6:37 PM BOOK ILLUSTRATOR Plan of Treatment Health Maintenance Due Date Last Done Comments Hepatitis C Virus (HCV) Screening 1978 Mammogram 1978 TdaP Immunization 1978 Hepatitis B Immunization (1 of 3 - 19+ 3-dose series) 1997 Pneumococcal Immunization Co mbined (1 of 2 - PCV) 1997 Discussion re Starting/Frequ ency of Mammograms 2018 Cologuard 06/20/2023 Colonoscopy 06/20/2023 Colorectal Cancer Screening 06/20/2023 Immunochemical Fecal Occult Blood 06/20/2023 SARS-COV-2 Immunization ( - season) 2023 Influenza Immunization (#1) 2024 Respiratory Syncytial Virus (RSV) Immunization (Adult) (1 - 1-dose 75+ series) 2053 Human Papillomavirus (HPV) Immunization Aged Out No longer eligible b ased on patient's age to complete this topic Meningococcal Immunization (ACWY) Aged Out No longer [...] measures to stabilize the patient. Care Teams Net Web Developer Relationship Specialty Start Date End Date Emiliano Wan MD [address], [address] [place] [address] PCP - General Infectious Disease 01/06/24
--- OUTSIDE RECORDS SUMMARY | 2024-08-14 15:30 | XMS_ITS | Clinical Summary ---
Author Organization [facility] Address [address] [place] [phone] Phone Care Team Providers Care Cafeteria Counter Attendant Name Role Phone Alma Wan MD Primary Care Provider [phone] Allergies Active Allergy Reactions Criticality Noted Date [...] hours as needed for pain Pain treatment [facility]. 024 2024 Discontinued( No longer taking [...] 128/84 Assessment & Plan (04/05/2023 3:10 PM STATISTICAL PROGRAMMER): Mildly elevated in office today. No hx [...] 01/16/2023 Assessment & Plan (01/16/2023 2:48 PM STATISTICAL PROGRAMMER): Chronic for 1-2 years per patient account. [...] pain. Her pain management providers are in [place] and also give her oxycodone. We previously referred her to [facility] psychiatry but have not received any follow-up [...] referred her to psychiatry at [facility] per her request. We will see her back here in three months, or sooner if needed. Assessment & Plan (01/16/2023 2:56 PM STATISTICAL PROGRAMMER): Chronic and ongoing. Patient current out of [...] x 2.1 cm reported on brain MRI, [facility]. Assessment & Plan (07/23/2024 2:17 PM CDT): Chronic, diagnosed about 18 months ago and clinically silent at this time. We will continue to monitor with regular office visits. Assessment & Plan (10/04/2023 3:33 PM CDT): New diagnosis as of about eight months ago as far as I can tell. MRI at [facility] reported a left hemispheric 4 x 2 cm meningioma. The patient has chronic headaches. She will need follow-up with Neurology to determine any relationship or needed treatment. We are trying to expedite that appointment for her. Assessment & Plan (09/05/2023 3:52 PM CDT): Chronic, unknown status. 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 Those images have been downloaded into her chart but there is no report. I reviewed multiple images personally and do not see any obvious meningioma. We are referring her to neurology. Follow-up imaging or other evaluation may be needed given her history of chronic headaches. Assessment & Plan (01/16/2023 2:58 PM STATISTICAL PROGRAMMER): Noted on CT 11/2022. Will request notes. [...] this condition including the initial one at [facility] (previously said to have been done at [facility]), followed by evaluation in [place], [place] a few years ago, and more recently at [facility] in [place] last November. I reviewed available records dating back to 06/01/2011 (Clinical Desktop) but am unable to find results of a lumbar puncture. We requested records from [place] and [facility]. I independently interpreted multiple imaging reports of the spinal cord, brain and orbits obtained over the years including MRI of the cervical spine and brain done at [facility] in November and at this time I [...] (multiple sclerosis) 08/12/2011 Overview (10/04/2023): Diagnosed at [facility] with MRI, [facility] per patient report. MR imaging of brain and spinal cord in 2012 negative for evidence of multiple sclerosis. MR images of brain and cervical cord negative for evidence of demyelinating disease, November 2022, [facility]. Assessment & Plan (09/15/2023 3:31 PM CDT): Chronic, status unknown. She reports being diagnosed with multiple sclerosis at [facility] in 2011. Details are not available. She [...] The most recent MRI imaging available from [facility] about nine months ago has no associated report. I personally reviewed and interpreted the images and I do not see any obvious evidence of active multiple sclerosis in the brain. We referred her to Neurology, Dr. Mckinney, who apparently saw her in the past when she was first diagnosed. Assessment & Plan (04/05/2023 4:02 PM STATISTICAL PROGRAMMER): Chronic. Now with complaint of tremor. New [...] Likely erroneous entry, MRI C-spine 11/17/2022 at [facility] notable for mild degenerative changes. Assessment & Plan (01/16/2023 2:57 PM STATISTICAL PROGRAMMER): Chronic and ongoing. Patient is aware that [...] condition. She says she was evaluated at [place] in 2012 and has had additional evaluations in [place] and at [facility]. We are trying to gather the records. [...] in 1-2 weeks from discharge locally ([facility] can be reached at [phone]) or at home in [place]. Will need repeat dilated examination and OCT [...] Dyspepsia 07/05/2020 12/11/2023 Small bowel obstruction 07/02/2020 082 04/2023 Overview (10/04/2023): Nonoperative management, Martha, Assessment & Plan (07/17/2020 10:29 AM CDT): #partial SBO - NPO, NGT to LIWS -6/2 SBC; contrast to rectum with small BM / endorsing abdominal pain and nausea; NG clamped overnight; continue clamp trial till noon, if minimal output plan to remove NG tube today and advance to clears and resume home bowel regimen / tolerated clears overnight, advanced to a soft diet -back to FLD with nutritional consult 07/16 Reports liquid BM, Abdomen TTP, No nausea, tolerating full liquid diet. Transitioned to low fiber diet. When comfortable with dietary intake and abdominal pain will discuss discharge home. Non-operative management at this time. 6/6: Tolerating low fiber diet. OK to discharge [...] Type Department Care Team Description 08/12/2024 Telephone [facility] [address] [facility] [address] [place] [address] Alma Wan MD 07/23/2024 1:30 PM CDT Office Visit [facility] [address] [facility] [address] [place] [address] Alma Wan MD Bipolar disorder with moderate depression (HCC) (Primary Dx); Meningioma (HCC); Morbid obesity with BMI of 45.0-49.9, adult (HCC); Elevated blood-pressure reading without diagnosis of hypertension; Vertigo; Chronic nausea; Need for hepatitis C screening test; Need for hepatitis B screening test; B12 deficiency; Annual visit for general adult medical examination with abnormal findings 07/17/2024 10:45 AM CDT Procedure visit [facility] [address] [place] [address] [address] [place] [address] Cristobal Mckinney MD Chronic migraine without aura without status migrainosus, not intractable 07/09/2024 Telephone [facility] [address] [place] [phone] Cristobal Mckinney MD 06/01/2024 Telephone [facility] [address] [place] [address] Alma Wan MD 06/01/2024 Results Follow-Up [facility] [address] [place] [address] Alma Wan MD SCAN - LABS 05/25/2024 Orders Only [facility] Information Management [address] [place] [address] Alma Wan MD from Last 3 Months Immunizations Immunization Administration [...] OMENTECTOMY AND SMALL BOWEL REPAIR;REPAR VENTRAL HERNIA, [facility]. TOTAL ABDOMINAL HYSTERECTOMY 02/12/2008 - 02/10/2009 N/A Dr. Ta, ovaries were left. HM DNA STOOL 11/24/2023 N/A Negative Medical History Medical History Date Comments Anxiety Depression Headache Obesity Acute abdominal pain in left upper quadrant 07/05/2020 Details lacking. Small bowel obstruction (HCC) 07/02/2020 No noperative management, Martha, Spinal stenosis of cervical region 01/16/2023 Likely erroneous entry, MRI C- spine 11/17/2022 at [facility] notable for mild degenerative changes. Family History [...] on file Legal Sex Female 1:46 AM STATISTICAL PROGRAMMER Gender Identity Not on file Sexual Orientation [...] 07/23/2024 1:23 PM CDT Plan of Treatment Health Maintenance Due Date Last Done Comments Breast Cancer Screening-Mammogram 1978 Hepatitis C Screening 1978 DTaP/Tdap/Td Vaccine (1 - Tdap) 1989 Hepatitis B Screening 1996 Pneumococcal vaccine <65 (1 of 2 - PCV) 1997 Depression Screening 09/04/2024 09/05/2023 Regular Well Visit/Exam 18-64 09/04/2024 09/05/2023 Influenza Vaccine (#1) 2024 Colon Cancer Screening-Colonoscopy 11/23/2026 Postponed from 10/1978 (Provider's clinical decision) HPV Vaccines Aged Out No longer eligi ble based on patient's age to complete this topic Procedures Procedure Name Priority Date/Time Associated Diagnosis Comments SCAN - LABS 05/25/2024 from Last 3 Months Results * SCAN - LABS (05/25/2024) Alma Wan MD Edited Result - Final from Last 3 Months Insurance [employer] [facility] [employer] [facility] Advance Directives For more information, please contact: [phone] * Full Code (Latest Code Status on File) Date Activated Date Inactivated Comments 07/13/2020 7:10 AM 07/17/2020 5:28 PM * Full Code Date Activated Date Inactivated Comments 07/02/2020 10:50 PM 07/09/2020 7:07 PM Care Teams Cafeteria Counter Attendant Relationship Specialty Start Date End Date Alma Wan MD [address] [place] [address] [place] [id number] PCP - General Internal Medicine 09/05/23
--- OUTSIDE RECORDS SUMMARY | 2024-08-14 15:30 | XMS_ITS | Encounter Summary ---
Author Organization [facility] Address [address] [place] [address] Care Team Providers Care District Extension Service Agent Name Role Phone Maxine Payne Primary Care Provider [phone] Reason for Visit * Reason Onset Date Comments Wound Care 05/09/2023 Encounter Details Date Type Department Care Team (Late st Contact Info) Description 05/09/2023 Telephone [facility] [address] [place] [phone] Leonel Velasquez MD [address] [place] [address] [place] [address] Wound Care Social History Tobacco [...] and heating? Not hard at all 04/19/2023 [facility] [place] [facility] Occupat ional Health - Occupational Stress [...] place to sleep or slept in a retirement (including now)? No 04/19/2023 Comments No Sex and Gender Information Value Date Recorded Sex Assigned at Not on file Legal Sex Female 5:33 AM GLACIOLOGIST Gender Identity Not on file Sexual Orientation [...] 04/19/2023 10:09 PM Lorraine Walker, RN documented as of this encounter Mental [...] on filedocumented in this encounter Care Teams District Extension Service Agent Relationship Specialty Start Date End Date Maxine Payne [place] [address] PCP - General 04/09/23 documented as of this encounter
[2024-08-14 15:34] VITALS: BP 134/82; PULSE 105; RESP 16; TEMP 36.4; O2SAT 99
== END 2024-08-14 16:01 | disposition home or self-care (01) ==
PROVIDERS: Emergency Provider Nurse Practitioner Family; PCP Internal Medicine Infectious Disease
DX: S80.02XA Contusion of left knee, initial encounter (principal); W19.XXXA Unspecified fall, initial encounter; M17.12 Unilateral primary osteoarthritis, left knee; F17.210 Nicotine dependence, cigarettes, uncomplicated; G35 Multiple sclerosis; K21.9 Gastro-esophageal reflux disease without esophagitis; Z86.73 Personal history of transient ischemic attack (TIA), and cerebral infarction without residual deficits
CPT/HCPCS: 73564; 99213; G0463